=== PATIENT | female | born 1945 | race Caucasian/White ===

== ENCOUNTER 2017-10-11 10:46 | Observation (INO) ==
[2017-10-11 11:28] LABS: Nucleated Red Blood Cells 0.3 /100 WBC (0); Red Blood Count 4.99 M/mcL (3.82-4.97)
--- NOTE | 2017-10-11 11:28 | Emergency Department Note ---
Disposition Clinical Impression: Polycythemia rubra vera Dyspnea Qualifiers: Dyspnea type: unspecified Qualified Code(s): R06.00 - Dyspnea, unspecified Leukocytosis Qualifiers: Leukocytosis type: unspecified Qualified Code(s): D72.829 - Elevated white blood cell count, unspecified Disposition: Admitted As Inpatient Condition: Fair Referrals: Silver Díaz MD [Primary Care Provider] - Forms: ED Satisfaction Letter Time of Disposition: 14:23 SOB HPI - General Chief Complaint: ED Shortness of Breath/Dyspnea Stated Complaint: SADIE Time Seen by Provider: 10/11/17 11:06 Source: patient Mode of arrival: ambulatory Limitations: no limitations, age Nursing Notes Reviewed: Yes Vital Signs Reviewed: Yes - History of Present Illness 72-year-old who comes in complaining of shortness of breath for last 3 days also some chest tightness. Patient has had a previous heart attack had a cardiac catheter but no stents were placed. She also has a history of polycythemia and has had blood clots before. Patient states she does have exertional dyspnea gets really short of breath when she goes up the stairs. Pt Subjective Complaint: shortness of breath Onset (ago): day(s) (3) Context: occurred during exertion Severity: moderate Consistency/Duration: constant Improves with: nothing Worsens with: nothing Associated symptoms: Reports: chest pain, cough Treatment prior to arrival: none Cough present: No - Related Data Home Medications Medication Instructions Recorded Confirmed Atorvastatin [Lipitor] 40 mg PO HS 12/02/15 12/02/15 FLUoxetine HCl [Fluoxetine HCl] 10 mg PO DAILY 12/02/15 12/02/15 Gabapentin [Neurontin] 600 mg PO TID 12/02/15 12/02/15 Metoprolol XL (24 HR) Succ [Toprol 50 mg PO DAILY 12/02/15 12/02/15 Xl] Previous Rx's Medication Instructions Recorded Hydroxyurea [Hydrea] 500 mg PO AD #0 12/03/15 Hydrocodone/Acetaminophen [[place] 1 tab PO Q6H PRN #20 tab 01/13/16 5-325 Tablet] Capsaicin [Arthritis Pain Relief] 42.5 gm TP DAILY #1 cream..g. 03/04/17 Lidocaine Patch [Lidoderm 5% patch] 1 each TP DAILY #10 adh..patch 03/04/17 Orphenadrine [Norflex] 100 mg PO BID #20 tablet.er 03/04/17 Diclofenac Sodium [Voltaren] 50 mg PO Q8HR PRN #30 tablet. 03/05/17 predniSONE [PredniSONE] 40 mg PO DAILY #10 tablet 03/05/17 Famotidine [Pepcid] 20 mg PO BID #20 tablet 03/08/17 HYDROcodone/Acet 5/325 mg [[place] 1 tab PO Q4-6H PRN #6 tab 03/08/17 5-325 mg] predniSONE [PredniSONE] 60 mg PO DAILY #5 tablet 03/08/17 HYDROcodone/Acet 5/325 mg [[place] 1 tab PO Q6H PRN #20 tab 04/11/17 5-325 mg] diazePAM [Valium] 2 mg PO TID #9 tablet 04/11/17 Acetaminophen w/Cod 300-30 mg 1 each PO Q8HR PRN #10 tablet 04/13/17 [Tylenol w/Codeine #3] predniSONE [PredniSONE] 0 mg PO DAILY #11 tablet 04/13/17 Acetaminophen with Codeine 1 each PO Q4-6H PRN #6 tablet 05/21/17 [Acetaminophen-Cod #3 Tablet] predniSONE [PredniSONE] 40 mg PO DAILY #10 tablet 05/21/17 predniSONE [PredniSONE] 20 mg PO BID #10 tablet 06/14/17 hydrOXYzine pamoate [HydrOXYzine 25 mg PO TID PRN #30 capsule 10/04/17 Pamoate] methylPREDNISolone [Medrol] 4 mg PO TAPER #21 tablet 10/04/17 predniSONE [PredniSONE] 60 mg PO ONCE 5 Days #15 tablet 10/06/17 Allergies Allergy/AdvReac Type Severity Reaction Status Date / Time No Known Allergies Allergy Verified 07/12/17 15:12 Constitutional: Denies: fever, chills, weakness, weight change Eyes: Denies: eye pain, eye discharge, vision change ENT ED: Denies: ear pain, throat pain, dental pain, hearing loss, epistaxis, congestion, dysphagia Cardiovascular: Reports: chest pain, dyspnea on exertion. Denies: palpitations , edema, syncope Respiratory: Denies: cough, dyspnea, wheezes, hemoptysis, stridor Gastrointestinal: Denies: abdominal pain, nausea, vomiting, diarrhea, constipation, hematemesis, melena, hematochezia Genitourinary: Denies: dysuria, frequency, hematuria, discharge Musculoskeletal: Denies: back pain, neck pain, arthralgia, myalgia Integumentary: Denies: rash, abrasion, lesions Neurological: Denies: headache, weakness, numbness, paresthesias, confusion, abnormal gait, vertigo Psychiatric: Denies: anxiety, depression, suicidal thoughts, homicidal thoughts , auditory hallucinations, visual hallucinations Endocrine: Denies: fatigue Hematological/Lymphatic: Denies: easy bleeding, easy bruising Allergic/Immunologic: Denies: facial swelling, urticaria Past Medical History - Past Medical History Medical history: Reports: hypertension, other Psychiatric history: Reports: anxiety, depression MEDICAID BILLER history: Reports: no MEDICAID BILLER history - Social History Smoking Status: Never smoker Smokeless Tobacco Status: No Alcohol use: Reports: none Drug use: Reports: none Physical Exam - General Limitations: no limitations General appearance: alert, in no apparent distress - Head Head exam: atraumatic, normocephalic, normal inspection - Eye Eye exam: Present: normal appearance, PERRL, EOMI - ENT ENT exam: normal exam, normal oropharynx, mucous membranes moist - Neck Neck exam: Present: normal inspection, full ROM, trachea midline - Chest Chest inspection: Present: normal inspection, symmetric chest wall rise - Respiratory Respiratory exam: Present: normal lung sounds bilaterally - Cardiovascular Cardiovascular exam: Present: regular rate, normal rhythm, normal heart sounds - Abdominal Exam Abdominal exam: Present: soft, Non-Tender. Absent: tenderness, distention, guarding, rebound, rigidity - Extremities Exam Extremities exam: Present: normal inspection, full ROM. Absent: tenderness, pedal edema - Expanded Lower Extremity Exam Neurovascular/Tendon exam: Absent: motor deficit, sensory deficit, tendon deficit Gait: observed and normal - Back Exam Back exam: Present: normal inspection, full ROM. Absent: tenderness - Neurological Exam Neurological exam: Present: alert, oriented X3 - Psychiatric Psychiatric exam: Present: normal affect, normal mood - Skin Skin exam: Present: warm, dry, intact, normal color Course - Reevaluation(s) Reevaluation #1: 72-year-old female with a history of polycythemia who comes in complaining of exertional dyspnea for last several days. She does have an elevated BNP of 457 however chest x-rays negative. Her d-dimer was elevated she does have some renal insufficiency and she would rather not have contrast so we did a VQ scan which was low probability. Patient will be admitted for further evaluation exertional dyspnea may indicate an anginal equivalent. Time: 14:21 - Consultations Consultation #1: Discussed with Ms Bustos PAOLA, they will review the labs and peripheral smear and consult on patient. Time: 14:20 Consultation #2: Discussed with Dr. Fernandez, admit Time: 14:36 Vital Signs Temperature 97.5 F L 10/11/17 10:48 Pulse Rate 61 10/11/17 10:48 Respiratory Rate 16 10/11/17 10:48 Blood Pressure 151/81 10/11/17 10:48 O2 Sat by Pulse Oximetry 94 10/11/17 10:48 Temperature 97.5 F L 10/11/17 10:59 Pulse Rate 61 10/11/17 10:59 Respiratory Rate 16 10/11/17 10:59 Blood Pressure 151/81 10/11/17 10:59 O2 Sat by Pulse Oximetry 94 10/11/17 10:59 Oxygen Delivery Oxygen Delivery Room Air Shortness of Breath/Dyspnea - Lab Data Lab results reviewed: Yes I reviewed the patient's lab results. Result diagrams: 10/11/17 11:15 10/11/17 11:15 Lab Results 10/11/17 10/11/17 10/11/17 Range/Units 11:15 11:15 11:15 WBC 39.5 H* (4.3-11.1) K/mcL RBC 4.99 H (3.82-4.97) M/mcL Hgb 9.6 L (11.5-15.4) g/dL Hct 35.0 L (35.3-44.9) % MCV 70.1 L (83.0-100.0) fL MCH 19.2 L (28.0-33.3) pg MCHC 27.4 L (31.6-35.5) g/dL RDW 23.5 H (11.5-14.5) % Plt Count 476 H (140-400) K/mcL MPV TNP Immature Gran % Test Not Performed Seg Neutrophils % 88.0 % Lymphocytes % 6.0 % Monocytes % 4.0 % Eosinophils % 2.0 % Basophils % Test Not Performed Neutrophils # 34.8 H (1.6-8.9) K/mcL Lymphocytes # 2.4 (0.6-4.6) K/mcL Monocytes # 1.6 H (0.0-1.3) K/mcL Eosinophils # 0.8 H (0.0-0.6) K/mcL Basophils # Test Not Performed Nucleated RBCs/100 WBC 0.3 H (0) /100 WBC Platelet Estimate Normal (Normal) Large Platelets Present A (Not Present) Polychromasia 1+ A (Not Present) Hypochromasia Present A (Not Present) Anisocytosis 2+ A (Not Present) Smear Path Review See Below PT (9.4-12.1) Seconds INR APTT (26.0-36.0) Seconds D-Dimer (0-500) ng/mLFEU Sodium 139 (136-145) mEq/L Potassium 4.1 (3.5-5.1) mEq/L Chloride 106 (98-107) mEq/L Carbon Dioxide 22 L (23-29) mEq/L BUN 29 H (8-23) mg/dL Creatinine 1.20 (0.60-1.20) mg/dL Est GFR ( Amer) 54 L (> 60) Est GFR (Non-Af Amer) 44 L (> 60) BUN/Creatinine Ratio 24 (6-26) Glucose 92 (70-105) mg/dL Calculated Osmolality 293 (280-300) Lactic Acid 1.6 (0.5-2.2) mmol/L Calcium 9.6 (8.6-10.3) mg/dL Troponin I < 0.03 (< 0.04) ng/mL B-Natriuretic Peptide (Less than 100) pg/mL 10/11/17 10/11/17 Range/Units 11:15 11:15 WBC (4.3-11.1) K/mcL RBC (3.82-4.97) M/mcL Hgb (11.5-15.4) g/dL Hct (35.3-44.9) % MCV (83.0-100.0) fL MCH (28.0-33.3) pg MCHC (31.6-35.5) g/dL RDW (11.5-14.5) % Plt Count (140-400) K/mcL MPV Immature Gran % Seg Neutrophils % % Lymphocytes % % Monocytes % % Eosinophils % % Basophils % Neutrophils # (1.6-8.9) K/mcL Lymphocytes # (0.6-4.6) K/mcL Monocytes # (0.0-1.3) K/mcL Eosinophils # (0.0-0.6) K/mcL Basophils # Nucleated RBCs/100 WBC (0) /100 WBC Platelet Estimate (Normal) Large Platelets (Not Present) Polychromasia (Not Present) Hypochromasia (Not Present) Anisocytosis (Not Present) Smear Path Review PT 16.1 H (9.4-12.1) Seconds INR 1.5 APTT 32.4 (26.0-36.0) Seconds D-Dimer 1281 H (0-500) ng/mLFEU Sodium (136-145) mEq/L Potassium (3.5-5.1) mEq/L Chloride (98-107) mEq/L Carbon Dioxide (23-29) mEq/L BUN (8-23) mg/dL Creatinine (0.60-1.20) mg/dL Est GFR ( Amer) (> 60) Est GFR (Non-Af Amer) (> 60) BUN/Creatinine Ratio (6-26) Glucose (70-105) mg/dL Calculated Osmolality (280-300) Lactic Acid (0.5-2.2) mmol/L Calcium (8.6-10.3) mg/dL Troponin I (< 0.04) ng/mL B-Natriuretic Peptide 457 H (Less than 100) pg/mL - Radiology Data Radiology results reviewed: Yes I reviewed the patient's radiology results. Chest X-Ray 10/11/17 11:08 IMPRESSION: 1. No acute cardiopulmonary disease. D/ / Bennett Arrington MD / Bennett Arrington MD Interpreting Provider: Bennett Arrington MD Chest X-Ray 10/11/17 11:08 IMPRESSION: 1. No acute cardiopulmonary disease. D/ / Bennett Arrington MD / Bennett Arrington MD Interpreting Provider: Bennett Arrington MD Pulmonary Perfusion Imaging 10/11/17 12:50 IMPRESSION: Low probability for pulmonary embolus. D/ / Bill Stern MD / Bill Stern MD Interpreting Provider: Bill Stern MD - EKG Data EKG attestation: Yes I reviewed and interpreted this EKG. EKG shows normal: Reports: sinus rhythm Rate: Reports: normal Rhythm: Reports: NSR [place]/QRS: Reports: normal When compared to previous EKG there are: no significant changes (07/12/2017) Interpretation: Reports: no acute changes
[2017-10-11 11:30] LABS: Hemoglobin 9.6 g/dL (11.5-15.4); Mean Corpuscular HGB Conc 27.4 g/dL (31.6-35.5); Mean Corpuscular Hemoglobin 19.2 pg (28.0-33.3); Mean Corpuscular Volume 70.1 fL (83.0-100.0); Platelet Count 476 K/mcL (140-400); Red Cell Distribution Width 23.5 % (11.5-14.5)
[2017-10-11 11:57] LABS: Eosinophils # 0.8 K/mcL (0.0-0.6); Lymphocytes # 2.4 K/mcL (0.6-4.6); Monocytes # 1.6 K/mcL (0.0-1.3); Neutrophils # 34.8 K/mcL (1.6-8.9); Troponin I < 0.03 ng/mL (< 0.04)
[2017-10-11 12:00] LABS: Platelet Estimate Normal (Normal)
[2017-10-11 12:01] LABS: Anisocytosis 2+ (Not Present); Hypochromasia Present (Not Present); INR 1.5; Large Platelets Present (Not Present); Polychromasia 1+ (Not Present); Prothrombin Time 16.1 Seconds (9.4-12.1)
[2017-10-11 12:04] LABS: Activated Partial Thrombo Time 32.4 Seconds (26.0-36.0)
[2017-10-11 12:12] LABS: BUN/Creatinine Ratio 24 (6-26); Blood Urea Nitrogen 29 mg/dL (8-23); Calcium 9.6 mg/dL (8.6-10.3); Carbon Dioxide 22 mEq/L (23-29); Chloride 106 mEq/L (98-107); Glucose 92 mg/dL (70-105); Osmolality,Calculated 293 (280-300); Potassium 4.1 mEq/L (3.5-5.1); Sodium 139 mEq/L (136-145); eGFR For African Americans 54 (> 60); eGFR For Non-African Americans 44 (> 60)
[2017-10-11] MEDS ORDERED: 0.9 % Sodium Chloride 1,000 ML IVC ONE (12:54)
[2017-10-11] MEDS ORDERED: Naloxone 0.4 MG/ML INJ IVP PRN (14:58)
[2017-10-11] MEDS ORDERED: hydrOXYzine pamoate 25 MG CAPSULE PO PRN (15:01)
--- NOTE | 2017-10-11 15:07 | Internal Med History&Physical ---
Date of Encounter: 10/11/17 Time of Encounter: 15:15 Internal Medicine - H&P: HPI Chief complaint: SOB Admitted From: Home Plans for Post Hospital Care: Home History of present illness: Ms. Stoddard is a 72 year old female with history of polycythemia vera been having shortness of breath off and on within the last 10 days that has been getting worse in the last 3 days and patient came into the emergency department for further evaluation. When asked about phlebotomy patient states that she has it twice in the last one was years ago. She denies any history of congestive heart failure. She is not a smoker. Patient had blood clots before N VQ scan done in the emergency Department that showed low probability. Patient satting well on room air. Patient denied any chest pain but she stated that she is having worsening shortness of breath when going up stairs. She denies any headache no blurry vision no nausea no vomiting no abdominal pain or changes in bowel movement. Past Med Surg Social Fam HX - Past Medical History Medical history: hypertension, other Additional medical history: polycythemia vera Psychiatric history: anxiety, depression - Past Surgical History Additional surgical history: b/l foot surgery - Social History Smoking Status: Never smoker Smokeless Tobacco Status: No Alcohol use: none Drug use: none - Additional Family History Additional family history: History of coronary artery disease in the family Internal Medicine - H&P: Meds Atorvastatin [Lipitor] 40 mg PO HS 12/02/15 [History] FLUoxetine HCl [Fluoxetine HCl] 10 mg PO DAILY 12/02/15 [History] Gabapentin [Neurontin] 600 mg PO TID 12/02/15 [History] Metoprolol XL (24 HR) Succ [Toprol Xl] 50 mg PO DAILY 12/02/15 [History] Hydroxyurea [Hydrea] 500 mg PO AD #0 12/03/15 [Rx] Hydrocodone/Acetaminophen [[place] 5-325 Tablet] 1 tab PO Q6H PRN #20 tab [Rx] Capsaicin [Arthritis Pain Relief] 42.5 gm TP DAILY #1 cream..g. 03/04/17 [Rx] Lidocaine Patch [Lidoderm 5% patch] 1 each TP DAILY #10 adh..patch 03/04/17 [Rx] Orphenadrine [Norflex] 100 mg PO BID #20 tablet.er 03/04/17 [Rx] Diclofenac Sodium [Voltaren] 50 mg PO Q8HR PRN #30 tablet. 03/05/17 [Rx] predniSONE [PredniSONE] 40 mg PO DAILY #10 tablet 03/05/17 [Rx] Famotidine [Pepcid] 20 mg PO BID #20 tablet 03/08/17 [Rx] HYDROcodone/Acet 5/325 mg [[place] 5-325 mg] 1 tab PO Q4-6H PRN #6 tab 03/08/17 [ Rx] predniSONE [PredniSONE] 60 mg PO DAILY #5 tablet 03/08/17 [Rx] HYDROcodone/Acet 5/325 mg [[place] 5-325 mg] 1 tab PO Q6H PRN #20 tab 04/11/17 [Rx ] diazePAM [Valium] 2 mg PO TID #9 tablet 04/11/17 [Rx] Acetaminophen w/Cod 300-30 mg [Tylenol w/Codeine #3] 1 each PO Q8HR PRN #10 tablet 04/13/17 [Rx] predniSONE [PredniSONE] 0 mg PO DAILY #11 tablet 04/13/17 [Rx] Acetaminophen with Codeine [Acetaminophen-Cod #3 Tablet] 1 each PO Q4-6H PRN #6 tablet 05/21/17 [Rx] predniSONE [PredniSONE] 40 mg PO DAILY #10 tablet 05/21/17 [Rx] predniSONE [PredniSONE] 20 mg PO BID #10 tablet 06/14/17 [Rx] hydrOXYzine pamoate [HydrOXYzine Pamoate] 25 mg PO TID PRN #30 capsule 10/04/17 [Rx] methylPREDNISolone [Medrol] 4 mg PO TAPER #21 tablet 10/04/17 [Rx] predniSONE [PredniSONE] 60 mg PO ONCE 5 Days #15 tablet 10/06/17 [Rx] 3 Allergy/AdvReac Type Severity Reaction Status Date / Time No Known Allergies Allergy Verified 07/12/17 15:12 All Systems PM: A 10-system review of systems was performed and is negative for pertinent findings except as documented above in the HPI. Review of systems: Comprehensive 10 point review of system was done and it was negative other than what was mentioned above - Constitutional Vitals: Temp Pulse Resp BP Pulse Ox 97.5 F L 61 16 151/81 94 10/11/17 10:59 10/11/17 10:59 10/11/17 10:59 10/11/17 10:59 10/11/17 10:59 General appearance: Present: A&O X 3 - Head Head exam: Present: atraumatic, normocephalic - Eye Eye exam: Present: PERRL, conjuntiva pink, sclera anicteric Pupils: Present: PERRL - Neck Neck exam general surgery: Present: supple, trachea midline. Absent: lymphadenopathy - Respiratory Additional comments: Decreased breath sounds on the bases but no crackles - Cardiovascular Cardiovascular exam: Present: RRR, +S1, +S2. Absent: diastolic murmur, gallop, rubs, systolic murmur - GI/Abdominal GI/Abdominal exam: Present: normal bowel sounds, soft, no peritoneal signs. Absent: distended, tenderness - Extremities Exam Extremities exam: Present: warm, radial pulses palpable and symmetrical. Absent : calf tenderness, cyanotic, pedal edema - Neurological Exam Neurological exam: Present: CN II-XII intact, oriented X3, no focal deficits. Absent: pronater drift, facial droop, speech deficit - Skin Skin exam: Present: dry, intact Internal Med - H&P Results - Labs CBC & Chem 7: 10/11/17 11:15 10/11/17 11:15 Labs: Short CBC 10/11/17 Range/Units 11:15 WBC 39.5 H* (4.3-11.1) K/mcL Hgb 9.6 L (11.5-15.4) g/dL Hct 35.0 L (35.3-44.9) % Plt Count 476 H (140-400) K/mcL Neutrophils # 34.8 H (1.6-8.9) K/mcL BMP 10/11/17 11:15 Sodium 139 Potassium 4.1 Chloride 106 Carbon Dioxide 22 L BUN 29 H Creatinine 1.20 Glucose 92 Calcium 9.6 Cardiac Enzymes 10/11/17 Range/Units 11:15 Troponin I < 0.03 (< 0.04) ng/mL - Impressions ITS Impressions Chest X-Ray 10/11/17 11:08 IMPRESSION: 1. No acute cardiopulmonary disease. D/ / Bennett Arrington MD / Bennett Arrington MD Interpreting Provider: Bennett Arrington MD Pulmonary Perfusion Imaging 10/11/17 12:50 IMPRESSION: Low probability for pulmonary embolus. D/ / Bill Stern MD / Bill Stern MD Interpreting Provider: Bill Stern MD - Assessment and plan (1) Shortness of breath Current Visit: Yes Status: Acute Assessment and plan: Probably related to anemia, patient needs further hematology workup Patient has a history of polycythemia vera with her last phlebotomy was long time ago and her hemoglobin in the 9 range. She had leukocytosis and see needs further work up for rule out another blood malignancy Hematology consultation will check an echocardiogram for further evaluation of the heart structure and function Patient does not seem volume overloaded We will repeat chest x-ray in the morning Add the breathing treatment every 6 hours and when necessary VQ scan was done and showed low probability Patient may need walking desaturation study before discharge to reassess her oxygen level on ambulation (2) History of polycythemia vera Current Visit: Yes Status: Acute Assessment and plan: Hemoglobin and hematocrit is low Last phlebotomy was years ago Hematology consulted (3) Leukocytosis Current Visit: Yes Status: Acute Assessment and plan: With history of polycythemia vera patient needs further workup to rule out different but malignancy Hematology already on consult Qualifiers: Qualified Code(s): D72.829 - Elevated white blood cell count, unspecified (4) DVT prophylaxis Current Visit: Yes Status: Acute Assessment and plan: Lovenox subcutaneous as per protocol Monitor H&H - Time Spent With Patient Total time spent is greater than 50% in coordination of care (as documented) at patient's floor/unit and/or counseling patient:
[2017-10-11] MEDS ORDERED: Ipratropium/Albuterol Neb 3 ML IH PRN (15:15)
[2017-10-11] MEDS: Ipratropium/Albuterol Neb 3 ML IH SCH ×2 (16:08→21:54)
[2017-10-11] MEDS: Hydroxyurea 500 MG CAPSULE PO SCH (16:10)
--- NOTE | 2017-10-11 19:18 | Oncology Inp Consult Note ---
<Nivia Bustos Natalya - Last Filed: 10/12/17 09:33> Date of Encounter: 10/12/17 Time of Encounter: 18:30 Assessment and Plan (1) Anemia Status: Acute Assessment and plan: Chronic, noted in [facility] notes. Likely secondary to her hydrea, her hydrea was stopped earlier this year with an improvement in her anemia. She was recently started back on hydrea at a lower dose of 500 mg/day Check B12, folate, LDH, Iron, Ferritin Check stool for occult blood Start Iron tablets daily x10 days ONLY-while generally not indicated in PV, given the fact that she appears to be symptomatic from her ALINA this may help her symptoms Qualifiers: Qualified Code(s): D50.8 - Other iron deficiency anemias (2) DVT prophylaxis Status: Acute Assessment and plan: She is at high risk for thrombotic events Although anemia, do not highly suspect acute blood loss At this time her risk for blood clots given her PV outweighs holding her AC- restart her at low dose eliquis 2.5mg PO BID-of note, she states she has only been taking this daily, will need to clarify her dosing from [facility] and discuss further (3) Leukocytosis Status: Acute Assessment and plan: Secondary to PV although she is above baseline-etioogy for this somewhat unclear. Leukemoid reaction s/p recent GI illness, reactive to process causing SOB versus other Qualifiers: Qualified Code(s): D72.828 - Other elevated white blood cell count (4) Polycythemia vera Status: Acute Assessment and plan: Continue hydrea 500 mg/day and low dose aspirin VQ negative for PE Check BLE venous dopplers (5) Shortness of breath Status: Acute Assessment and plan: Etiology unclear at this time Suspect maybe secondary to underlying anemia VQ negative for PE She has an echo and CXR ordered for AM She is a non-smoker BNP 457-euvolemic on exam-calculated osm normal O2 saturations normal on room air Will consult pulmonology for other recommendations Please refer to Dr. Pederson's attestation below for additional details. - Data of Consult Patient: new to practice Consult date: 10/11/17 Requesting Physician: Corky Buck Primary Care Provider: Silver Díaz MD - Consult Narrative Reason for consult: PV History of present illness: Ms. Stoddard is a 72 year old female with past medical history significant for polycythemia vera (PV), HTN, anxiety and depression, presented to the ER on 10/11 for worsening SOB over the past 10 days. She is a non smoker. She denies H /A, visual changes, nausea, vomiting, abdominal pain, chest pain or calf pain. She has a history of PV for which she follows with Dr. Tidwell at [facility]. She has not needed a phlebotomy in over a year. She was previously on alternating 1000mg/500 mg a day dosing of hydrea however this was stopped earlier this year secondary to anemia. Her anemia improved and she was placed back on hydrea around 07/26/2017 at 500mg/day. According to lab review from [facility] notes on 07/26/2017 her ferritin was 17, hgb 9.7, platelt 537 and WBC 12 at this time. VQ scan shows low probability for PE. Of note, she has recently unexpectedly lost her son and is grieving secondary to this. Past Med Surg Social Fam HX - Past Medical History Medical history: hypertension, other Additional medical history: polycythemia vera Psychiatric history: anxiety, depression - Past Surgical History Surgical History: heart valve replacement, herniorrhaphy Additional surgical history: b/l foot surgery. "covered hole in heart" - Social History Smoking Status: Never smoker Smokeless Tobacco Status: No Alcohol use: none Drug use: none - Family History Sister Cause of : "blood clot" Medications and Allergies Amlodipine Besylate [Amlodipine Besylate] 10 mg PO DAILY 10/11/17 [History] Apixaban [Eliquis] 5 mg PO BID 10/11/17 [History] Aspirin [Lo-Dose Aspirin EC] 81 mg PO DAILY 10/11/17 [History] Atorvastatin [Lipitor] 40 mg PO HS 10/11/17 [History] Gabapentin [Neurontin] 300 mg PO QPM 10/11/17 [History] Gabapentin [Neurontin] 600 mg PO QAM 10/11/17 [History] Gabapentin [Neurontin] 900 mg PO HS 10/11/17 [History] Hydroxyurea 500 mg PO DAILY 10/11/17 [History] Lisinopril [Zestril] 40 mg PO DAILY 10/11/17 [History] Loratadine [Claritin] 10 mg PO DAILY 10/11/17 [History] Metoprolol Succinate [Toprol Xl] 50 mg PO DAILY 10/11/17 [History] Omeprazole [PriLOSEC] 20 mg PO HS 10/11/17 [History] Ranitidine HCl [Acid Channel Opener Outsoles] 150 mg PO BID 10/11/17 [History] Tizanidine HCl [Tizanidine HCl] 4 mg PO HS PRN 10/11/17 [History] hydrOXYzine pamoate [HydrOXYzine Pamoate] 25 mg PO TID 10/11/17 [History] predniSONE [PredniSONE] 20 mg PO AD 10/11/17 [History] 3 Allergy/AdvReac Type Severity Reaction Status Date / Time No Known Allergies Allergy Verified 10/11/17 15:17 Constitutional: Present: fatigue, weakness. Absent: anorexia, chills, fever(s) , night sweats, weight loss Eyes: Absent: change in vision Nose, mouth and throat: Absent: dysphagia Cardiovascular: Present: dyspnea on exertion. Absent: chest pain, palpitations Additional comments: reports lightheadedness with position change earlier this week following GI illness, now improved Respiratory: Present: dyspnea on exertion. Absent: cough, hemoptysis, chest congestion Gastrointestinal: Present: as per HPI Additional comments: GI illness earlier this week-symptoms now resolved Genitourinary: Absent: dysuria, hematuria Musculoskeletal: Present: muscle weakness Integumentary: Present: as per HPI. Absent: wounds Neurological: Present: as per HPI. Absent: focal weakness, frequent falls, memory loss Psychiatric: Present: as per HPI, anxiety, depression Endocrine: Present: fatigue. Absent: flushing, palpitations Hematologic/Lymphatic: Present: as per HPI Oncology - Exam - Constitutional Vitals: Temp Pulse Resp BP Pulse Ox 98.6 F 74 16 119/72 94 10/11/17 18:54 10/11/17 18:54 10/11/17 18:54 10/11/17 18:54 10/11/17 18:54 Oncology - Results Labs: 3 10/11/17 17:10 Troponin I < 0.03 Consult Discharge Plan - Plan Referrals: Silver Díaz MD [Primary Care Provider] - <Elisa Pederson - Last Filed: 10/12/17 16:57> Date of Encounter: 10/12/17 - Data of Consult Requesting Physician: Brain Arvizu Primary Care Provider: Silver Díaz MD - Consult Narrative History of present illness: Ms. Stoddrad is a 72 year old female Oncology - Exam - Constitutional Vitals: Temp Pulse Resp BP Pulse Ox 97.7 F 66 16 112/58 90 10/12/17 16:05 10/12/17 16:05 10/12/17 16:05 10/12/17 16:05 10/12/17 16:05 Exam: GENERAL: Alert and oriented, well appearing. Mental Status: Affect appropriate for circumstances HEENT: Sclerae anicteric. No mucositis or thrush. No other oral or pharyngeal lesions or erythema. Skin: No rashes or petechiae. No evidence of skin malignancy Lymph nodes: No cervical, supraclavicular, axillary, or inguinal adenopathy. Lungs: Air entry normal with normal breath sounds. No rhonchi or wheezing Cardiovascular: Regular rate and rhythm. No skipped beats Abdomen: Soft, nontender; no organomegaly or masses palpable. Extremities: No edema. No calf swelling or tenderness. No joint deformity. Neurologic: Alert, cranial nerves II-XII intact; normal gait; no focal weakness or sensory abnormalities Oncology - Results Labs: 3 10/12/17 10/12/17 10/12/17 00:26 00:26 00:26 WBC RBC Hgb Hct MCV MCH MCHC RDW Plt Count MPV Immature Gran % Seg Neutrophils % Lymphocytes % Monocytes % Eosinophils % Basophils % Neutrophils # Lymphocytes # Monocytes # Eosinophils # Basophils # Nucleated RBCs/100 WBC Platelet Estimate Polychromasia Hypochromasia Anisocytosis Microcytosis Sodium 139 Potassium 3.7 Chloride 107 Carbon Dioxide 23 BUN 22 Creatinine 1.00 Est GFR ( Amer) > 60 Est GFR (Non-Af Amer) 55 L BUN/Creatinine Ratio 22 Glucose 102 Calculated Osmolality 292 Calcium 8.9 Phosphorus 3.9 Magnesium 1.6 Iron 12 L % Saturation 3 L Transferrin 261 Ferritin 23 Total Bilirubin 0.7 AST 9 L ALT 11 Alkaline Phosphatase 142 H Lactate Dehydrogenase 322 H Troponin I Serum Total Protein 6.9 Albumin 3.3 L Globulin 3.6 H Albumin/Globulin Ratio 0.9 L Triglycerides 129 Cholesterol 112 LDL Cholesterol, Calc 57 VLDL Cholesterol, Calc 26 HDL Cholesterol 29 L Cholesterol/HDL Ratio 3.9 Vitamin B12 835 Folate 4.1 3 10/12/17 10/12/17 10/11/17 00:26 00:26 17:10 WBC 31.3 H* RBC 4.37 Hgb 8.7 L Hct 30.9 L MCV 70.7 L MCH 19.9 L MCHC 28.2 L RDW 22.5 H Plt Count 414 H MPV TNP Immature Gran % 5.9 H Seg Neutrophils % 82.3 Lymphocytes % 3.8 Monocytes % 3.3 Eosinophils % 4.6 Basophils % 0.1 Neutrophils # 25.8 H Lymphocytes # 1.2 Monocytes # 1.0 Eosinophils # 1.4 H Basophils # 0.0 Nucleated RBCs/100 WBC 0.3 H Platelet Estimate Increased H Polychromasia 1+ A Hypochromasia Present A Anisocytosis 3+ A Microcytosis Present A Sodium Potassium Chloride Carbon Dioxide BUN Creatinine Est GFR ( Amer) Est GFR (Non-Af Amer) BUN/Creatinine Ratio Glucose Calculated Osmolality Calcium Phosphorus Magnesium Iron % Saturation Transferrin Ferritin Total Bilirubin AST ALT Alkaline Phosphatase Lactate Dehydrogenase Troponin I < 0.03 < 0.03 Serum Total Protein Albumin Globulin Albumin/Globulin Ratio Triglycerides Cholesterol LDL Cholesterol, Calc VLDL Cholesterol, Calc HDL Cholesterol Cholesterol/HDL Ratio Vitamin B12 Folate - Attending Attestation 1. Polycythemia vera. Reviewed the notes from [facility] Dr. mcdonald and. Hydroxyurea dose reduced recently to 500 mg once a day because of anemia. Currently she has microcytic anemia hemoglobin 9.6 MCV 79. We will cautiously replace iron 325 mg daily for 10 days. B12 folate normal. Iron saturation low with ferritin 23. 2. Admitted with sense of breath. Low probability PE. Clinically no evidence of CHF. She denied chest pain. Etiology of shortness of breath not clear. She would benefit from pulmonology opinion D-dimer elevated at 1200. CT chest on 10/12/2017 without contrast showed mild pericardial effusion Echocardiogram on 10/11/2017 ejection fraction 60-65%. Mild mitral regurgitation. It did not mention any pericardial effusion 3. We will start her back on Elequis 2.5 mg by mouth twice a day. She was on 5 mg she claims takes once a day. I explained to her that twice a day dosing is preferred because of short half-life. 4. Eelevated neutrophil count around 36,000. It is coming down slowly. Elevated neutrophil count most likely secondary to polycythemia vera
[2017-10-11] MEDS ORDERED: tiZANidine 4 MG TABLET PO PRN (20:41)
[2017-10-11] MEDS: Apixaban 5 MG TABLET PO SCH (22:20)
[2017-10-11] MEDS: Famotidine 20 MG TABLET PO SCH (22:20)
[2017-10-11] MEDS: Gabapentin 300 MG CAPSULE PO SCH (22:20)
[2017-10-11] MEDS: diazePAM 2 MG TABLET PO SCH (22:20)
[2017-10-11] MEDS: Orphenadrine 100 MG TABLET.ER PO SCH (22:21)
[2017-10-12 01:07] LABS: Basophils % 0.1 %; Eosinophils # 1.4 K/mcL (0.0-0.6); Eosinophils % 4.6 %; Hematocrit 30.9 % (35.3-44.9); Hemoglobin 8.7 g/dL (11.5-15.4); Immature Granulocytes % 5.9 % (0-4); Lymphocytes # 1.2 K/mcL (0.6-4.6); Lymphocytes % 3.8 %; Mean Corpuscular HGB Conc 28.2 g/dL (31.6-35.5); Mean Corpuscular Hemoglobin 19.9 pg (28.0-33.3); Mean Corpuscular Volume 70.7 fL (83.0-100.0); Monocytes % 3.3 %; Neutrophils # 25.8 K/mcL (1.6-8.9); Nucleated Red Blood Cells 0.3 /100 WBC (0); Platelet Count 414 K/mcL (140-400); Red Blood Count 4.37 M/mcL (3.82-4.97); Red Cell Distribution Width 22.5 % (11.5-14.5); Segmented Neutrophils % 82.3 %
[2017-10-12 01:18] LABS: % Iron Saturation 3 % (15-50); Alanine Aminotransferase 11 Units/L (7-52); Albumin 3.3 g/dL (3.5-5.7); Albumin/Globulin Ratio 0.9 (1.1-2.2); Alkaline Phosphatase 142 Units/L (34-104); Aspartate Amino Transferase 9 Units/L (13-39); BUN/Creatinine Ratio 22 (6-26); Bilirubin,Total 0.7 mg/dL (0.3-1.0); Blood Urea Nitrogen 22 mg/dL (8-23); Calcium 8.9 mg/dL (8.6-10.3); Carbon Dioxide 23 mEq/L (23-29); Chloride 107 mEq/L (98-107); Chol/HDL Ratio 3.9 (0-4.9); Cholesterol 112 mg/dL (< 200); Globulin 3.6 g/dL (2.4-3.5); Glucose 102 mg/dL (70-105); HDL Cholesterol 29 mg/dL (40-59); Iron 12 mcg/dL (50-170); LDL Cholesterol,Calculated 57 mg/dL (0-99); Lactate Dehydrogenase 322 Units/L (140-271); Magnesium 1.6 mg/dL (1.6-2.6); Osmolality,Calculated 292 (280-300); Phosphorous 3.9 mg/dL (2.7-4.5); Potassium 3.7 mEq/L (3.5-5.1); Sodium 139 mEq/L (136-145); Total Protein 6.9 g/dL (6.4-8.9); Transferrin 261 mg/dL (203-362); Triglycerides 129 mg/dL (< 150); eGFR For African Americans > 60 (> 60); eGFR For Non-African Americans 55 (> 60)
[2017-10-12 01:33] LABS: Anisocytosis 3+ (Not Present); Hypochromasia Present (Not Present); Platelet Estimate Increased (Normal)
[2017-10-12 01:34] LABS: Microcytosis Present (Not Present); Polychromasia 1+ (Not Present)
[2017-10-12 01:37] LABS: Ferritin 23 ng/mL (10-120)
[2017-10-12 01:39] LABS: Folate 4.1 ng/mL (3.0-16.0)
[2017-10-12] MEDS: Ipratropium/Albuterol Neb 3 ML IH SCH ×4 (03:38→21:51)
[2017-10-12] MEDS ORDERED: FLUoxetine HCl 10 MG CAPSULE PO SCH (09:00)
[2017-10-12] MEDS ORDERED: Capsaicin 0.025% 60 GM TUBE TP SCH (09:00)
--- NOTE | 2017-10-12 09:08 | Electrocardiograph Report ---
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
[2017-10-12] MEDS: Hydroxyurea 500 MG CAPSULE PO SCH (09:32)
[2017-10-12] MEDS: Famotidine 20 MG TABLET PO SCH ×2 (09:33→20:51)
[2017-10-12] MEDS: diazePAM 2 MG TABLET PO SCH (09:33)
[2017-10-12] MEDS: Metoprolol XL (24 HR) Succ 50 MG TAB.ER.24H PO SCH (09:34)
[2017-10-12] MEDS: Apixaban 5 MG TABLET PO SCH ×2 (09:34→20:51)
[2017-10-12] MEDS: Gabapentin 300 MG CAPSULE PO SCH ×3 (09:34→20:52)
[2017-10-12] MEDS: Orphenadrine 100 MG TABLET.ER PO SCH (09:34)
--- NOTE | 2017-10-12 11:04 | Internal Med Progress Note ---
Date of Encounter: 10/12/17 Time of Encounter: 11:01 - Assessment and plan (1) Shortness of breath Status: Resolved (2) Anemia Status: Acute Qualifiers: Anemia type: iron deficiency Iron deficiency anemia type: unspecified iron deficiency Qualified Code(s): D50.9 - Iron deficiency anemia, unspecified (3) Polycythemia vera Status: Chronic (4) Acute hypokalemia Status: Acute (5) Hypomagnesemia Status: Resolved - Time Spent With Patient Total time spent is greater than 50% in coordination of care (as documented) at patient's floor/unit and/or counseling patient: 25 - 35 minutes - Subjective Interval history: .. The patient feels better. Her difficulty breathing subsided. She is on room air oxygen. She feels weak; he is able to ambulate on her own. Denies chest pain. Denies abdominal pain, nausea and vomiting. She makes good amounts of urine. OBJECTIVE: .. Constitutional: See below. Skin: Free of rash and discoloration ENMT: Oral/pharyngeal mucosa is normal in appearance. Eyes: Sclera is white. There is no discharge from eyes. Respiratory: Normal breath sounds; no crackles or wheezes. CV: Heart is regular; no gallop or murmur. GI: Abdomen is soft and not tender. There is no palpable mass or visceromegaly. Neuro: There is no focal deficits. ASSESSMENT AND PLAN: .. Shortness of breath/anemia. There is no indications for a blood transfusion today. Her anemia could be resulting from taking hydroxyurea (for treatment of polycythemia vera). She could also developed GI bleeding. She may need upper/ lower endoscopy. She may need po/iv Iron. See notes from hematology/oncology. Polycythemia vera. See hematology/oncology consult from yesterday. Acute hypokalemia. Will give her supplemental potassium chloride by mouth. Hypomagnesemia. Will give her IV magnesium sulfate. NOTES: Awaiting pulmonary diseases consult. - Constitutional Vitals: Temp Pulse Resp BP Pulse Ox 98.1 F 60 14 131/80 96 10/12/17 06:49 10/12/17 06:49 10/12/17 06:49 10/12/17 06:49 10/12/17 07:42 General appearance: Present: A&O X 3 Internal Medicine: Result - Labs CBC & Chem 7: 06/24/18 03:34 10/14/17 03:34 Labs: Short CBC 10/12/17 Range/Units 00:26 WBC 31.3 H* (4.3-11.1) K/mcL Hgb 8.7 L (11.5-15.4) g/dL Hct 30.9 L (35.3-44.9) % Plt Count 414 H (140-400) K/mcL Neutrophils # 25.8 H (1.6-8.9) K/mcL BMP 10/12/17 00:26 Sodium 139 Potassium 3.7 Chloride 107 Carbon Dioxide 23 BUN 22 Creatinine 1.00 Glucose 102 Calcium 8.9 Cardiac Enzymes 10/11/17 10/12/17 Range/Units 17:10 00:26 Troponin I < 0.03 < 0.03 (< 0.04) ng/mL Liver Function 10/12/17 Range/Units 00:26 Total Bilirubin 0.7 (0.3-1.0) mg/dL AST 9 L (13-39) Units/L ALT 11 (7-52) Units/L Alkaline Phosphatase 142 H (34-104) Units/L Albumin 3.3 L (3.5-5.7) g/dL - ABG Interpretation ABG results: PT/INR, D-dimer PT 16.1 Seconds (9.4-12.1) H 10/11/17 11:15 D-Dimer 1281 ng/mLFEU (0-500) H 10/11/17 11:15 - Impressions Impressions Chest X-Ray 10/12/17 00:01 IMPRESSION: Bibasilar atelectasis. D/ / 10/12/2017 09:42:42 Bryan Cortes MD / [facility] Interpreting Provider: Bryan Cortes MD - VTE Reasons for not Prescribing Prophylaxis: Not indicated-Anticoagulated or INR therapeutic Consult Discharge Plan - Plan Referrals: Silver Díaz MD [Primary Care Provider] -
[2017-10-12] MEDS ORDERED: Preparation H Ointment 30 GM TUBE TP PRN (11:05)
--- NOTE | 2017-10-12 11:39 | Pulmonology Consult Note ---
Date of Encounter: 10/12/17 Time of Encounter: 11:00 Assessment and Plan (1) Shortness of breath Current Visit: Yes Status: Resolved This is very pleasant 72-year-old female who is complaining of shortness of breath, however she feels better at this time and it is unlikely secondary to structural lung disease since her CAT scan of the chest is normal. Other possibilities could be from underlying primary disease having polycythemia vera and anemia also could be contributing recent. I have explained to patient if continued to have shortness of breath she will need a pulmonary function test as outpatient for further workup. Other reasons could be diastolic dysfunction that was noted on the echocardiogram. She does not have significant improvement with bronchodilators, I would recommend to stop them. I have ordered CT chest high resolution since some of the side effects of medication such as Hydrea his pulmonary fibrosis and subsequently there were no evidence of structural pulmonary disease on the CT chest. Thank you for the consultation and we will be more than happy to see patient as outpatient if continue to have problem. (2) Pulmonary hyperinflation Current Visit: Yes Status: Suspected Mild pulmonary hypertension was noted on the echocardiogram, however patient has low probability perfusion scan and mild diastolic dysfunction could be a reason for mild hypertension, and she denies any symptoms of suggesting pulmonary or sleep disorder breathing. If she continued to have dyspnea, she will need right heart catheterization and that can be done later on, if she continued to have symptoms. (3) Polycythemia vera Current Visit: Yes Status: Chronic History of Present Illness Consult date: 10/12/17 Requesting physician: Nivia Bustos Reason for consult: dyspnea Chief complaint: Shortness of breath History of present illness: This is a very pleasant 72-year-old female with history of polycythemia vera and she stated she is been having more shortness of breath for the last 10 days and she is feeling better now and she thinks it is her underlying disease. She denies any significant productive cough or wheezing and she does not feel any significant improvement with bronchodilators. Patient is being treated for polycythemia vera and she had an echocardiogram which showed some evidence of mild pulmonary hypertension, however her symptoms are negative for sleep disorder breathing and she has no history of smoking. He also had CT chest with no evidence of acute abnormalities. Her perfusion scan was low probability. Patient denies any chest pain and she has no history of any significant pulmonary diseases or exposures to chemicals. Past Med Surg Social Fam HX - Past Medical History Medical history: hypertension, other Additional medical history: polycythemia vera Psychiatric history: anxiety, depression - Past Surgical History Surgical History: heart valve replacement, herniorrhaphy Additional surgical history: b/l foot surgery. "covered hole in heart" - Social History Smoking Status: Never smoker Smokeless Tobacco Status: No Alcohol use: none Drug use: none - Family History Sister Cause of : "blood clot" Medications and Allergies Amlodipine Besylate [Amlodipine Besylate] 10 mg PO DAILY 10/11/17 [History] Apixaban [Eliquis] 5 mg PO BID 10/11/17 [History] Aspirin [Lo-Dose Aspirin EC] 81 mg PO DAILY 10/11/17 [History] Atorvastatin [Lipitor] 40 mg PO HS 10/11/17 [History] Gabapentin [Neurontin] 300 mg PO QPM 10/11/17 [History] Gabapentin [Neurontin] 600 mg PO QAM 10/11/17 [History] Gabapentin [Neurontin] 900 mg PO HS 10/11/17 [History] Hydroxyurea 500 mg PO DAILY 10/11/17 [History] Lisinopril [Zestril] 40 mg PO DAILY 10/11/17 [History] Loratadine [Claritin] 10 mg PO DAILY 10/11/17 [History] Metoprolol Succinate [Toprol Xl] 50 mg PO DAILY 10/11/17 [History] Omeprazole [PriLOSEC] 20 mg PO HS 10/11/17 [History] Ranitidine HCl [Acid Swaging Machine Operator] 150 mg PO BID 10/11/17 [History] Tizanidine HCl [Tizanidine HCl] 4 mg PO HS PRN 10/11/17 [History] hydrOXYzine pamoate [HydrOXYzine Pamoate] 25 mg PO TID 10/11/17 [History] predniSONE [PredniSONE] 20 mg PO AD 10/11/17 [History] 3 Allergy/AdvReac Type Severity Reaction Status Date / Time No Known Allergies Allergy Verified 10/11/17 15:17 All Systems: The remainder of the systems were reviewed and are negative Physical Examination Vital Signs: Vital Signs, Last 4 Hours Temp Pulse Resp BP Pulse Ox 10/12/17 11:19 14 95 10/12/17 11:14 98.6 F 57 14 132/77 95 06/22/18 07:42 96 General: Patient is in no acute distress. HEENT: Normocephalic atraumatic, pupils are equal round and reactive to light and accommodation, anicteric sclera, nares is patent, mucous membranes moist, no JVD, trachea is midline Cardiovascular: Normal sinus rhythm, S1 and S2 audible, no murmur or rubs Respiratory: Clear to auscultation bilaterally. No acute distress. No wheezing. Patient not using accessory muscles. Abdomen: Soft, nontender, nondistended, positive bowel sounds in all 4 quadrants Extremities: Warm, dry, trace lower extremity edema. Normal capillary refill. Neuro: Alert and oriented and follows commands. Grossly no neuro deficits. Skin: Warm to touch : No obvious abnormalities. Psych: Normal Results - Laboratory Findings CBC and BMP: 10/12/17 00:26 10/12/17 00:26 PT/INR, D-dimer PT 16.1 Seconds (9.4-12.1) H 10/11/17 11:15 D-Dimer 1281 ng/mLFEU (0-500) H 10/11/17 11:15 Abnormal lab findings: Abnormal lab results WBC 31.3 K/mcL (4.3-11.1) H* 10/12/17 00:26 Hgb 8.7 g/dL (11.5-15.4) L 10/12/17 00:26 Hct 30.9 % (35.3-44.9) L 10/12/17 00:26 MCV 70.7 fL (83.0-100.0) L 10/12/17 00:26 MCH 19.9 pg (28.0-33.3) L 10/12/17 00:26 MCHC 28.2 g/dL (31.6-35.5) L 10/12/17 00:26 RDW 22.5 % (11.5-14.5) H 10/12/17 00:26 Plt Count 414 K/mcL (140-400) H 10/12/17 00:26 Immature Gran % 5.9 % (0-4) H 10/12/17 00:26 Neutrophils # 25.8 K/mcL (1.6-8.9) H 10/12/17 00:26 Eosinophils # 1.4 K/mcL (0.0-0.6) H 10/12/17 00:26 Nucleated RBCs/100 WBC 0.3 /100 WBC (0) H 10/12/17 00:26 Platelet Estimate Increased (Normal) H 10/12/17 00:26 Large Platelets Present (Not Present) A 10/11/17 11:15 Polychromasia 1+ (Not Present) A 10/12/17 00:26 Hypochromasia Present (Not Present) A 10/12/17 00:26 Anisocytosis 3+ (Not Present) A 10/12/17 00:26 Microcytosis Present (Not Present) A 10/12/17 00:26 PT 16.1 Seconds (9.4-12.1) H 10/11/17 11:15 D-Dimer 1281 ng/mLFEU (0-500) H 10/11/17 11:15 Est GFR (Non-Af Amer) 55 (> 60) L 10/12/17 00:26 Iron 12 mcg/dL (50-170) L 10/12/17 00:26 % Saturation 3 % (15-50) L 10/12/17 00:26 AST 9 Units/L (13-39) L 10/12/17 00:26 Alkaline Phosphatase 142 Units/L (34-104) H 10/12/17 00:26 Lactate Dehydrogenase 322 Units/L (140-271) H 10/12/17 00:26 B-Natriuretic Peptide 457 pg/mL (Less than 100) H 10/11/17 11:15 Albumin 3.3 g/dL (3.5-5.7) L 10/12/17 00:26 Globulin 3.6 g/dL (2.4-3.5) H 10/12/17 00:26 Albumin/Globulin Ratio 0.9 (1.1-2.2) L 10/12/17 00:26 HDL Cholesterol 29 mg/dL (40-59) L 10/12/17 00:26 - Diagnostic Findings CT scan - chest: report reviewed, image reviewed - Clinical Findings Intake & Output: Intake & Output 10/11/17 10/12/17 10/12/17 23:59 07:59 15:59 Intake Total 0 / 0 0 / 0 Output Total 150 / 150 0 / 0 Balance -150 / -150 0 / 0 Weight 78.4 kg 73.573 kg 73.573 kg Consult Discharge Plan - Plan Referrals: Silver Díaz MD [Primary Care Provider] -
[2017-10-12] MEDS: predniSONE 20 MG TABLET PO SCH (15:41)
[2017-10-12] MEDS: Acetaminophen 325 MG TABLET PO PRN (16:09)
--- NOTE | 2017-10-12 18:49 | Oncology Inp Progress Note ---
<Nivia Bustos - Last Filed: 10/12/17 18:47> Date of Encounter: 10/12/17 Time of Encounter: 17:45 (1) Anemia Current Visit: Yes Status: Acute Assessment and plan: Chronic, noted in [facility] notes. Likely in part secondary to her hydrea, her hydrea was stopped earlier this year with an improvement in her anemia. She was recently started back on hydrea at a lower dose of 500 mg/day Check stool for occult blood, need to rule out GI loss-pending Consider GI consultation which may be done on outpatient basis if she has no s/ s active bleeding In addition to this she is also very iron deficient, ALINA common in PV patients and typically expected, however, given her degrees of deficiency and presentation with SOB, will plan to treat. Dr. Bunch has discussed with patients treating oncologist Dr. Tidwell at [facility], following their discussion the ultimate recommendation was to treat with venofer 100 mg IV x1. Will stop oral iron. Expect her symptoms to improve soon following this. Qualifiers: Anemia type: iron deficiency Iron deficiency anemia type: unspecified iron deficiency Qualified Code(s): D50.9 - Iron deficiency anemia, unspecified (2) DVT prophylaxis Current Visit: Yes Status: Acute Assessment and plan: She is at high risk for thrombotic events Although she is anemic, do not highly suspect acute blood loss At this time her risk for blood clots given her PV outweighs holding her AC- restart her at low dose eliquis 2.5mg PO BID-of note, she states she has only been taking this daily, will need to clarify her dosing from [facility] and discuss further (3) Leukocytosis Current Visit: No Status: Acute Assessment and plan: Improving since admission Secondary to PV although she is above baseline-etiology for this somewhat unclear. Leukemoid reaction s/p recent GI illness, reactive to process causing SOB versus other Qualifiers: Qualified Code(s): D72.828 - Other elevated white blood cell count (4) Polycythemia vera Current Visit: Yes Status: Chronic Assessment and plan: Continue hydrea 500 mg/day and low dose aspirin VQ negative for PE BLE venous dopplers-negative for DVT She will continue to follow Dr. Tidwell at [facility] on an outpatient basis, she has an upcoming appointment with him in early October (5) Shortness of breath Current Visit: Yes Status: Resolved Assessment and plan: Suspect this is likely secondary to underlying anemia VQ negative for PE She is a non-smoker O2 saturations normal on room air CXR-no acute process Echo with mild pulmonary hypertension and mild diastolic dysfunction- may need right heart cath in future should she continue to have issues with unresolved or worsening SOB Pulmonology was consulted and appreciate the recommendations which were reviewed. She may plan to follow up with pulmonology on an outpatient basis if her symptoms do not resolve. Please refer to Dr. Bunch's attestation below for additional details. Oncology: Subj Interval history: Ms. Stoddard is resting in bed. She denies chest pain, calf pain, H/A or visual changes. She continues to report SOB but this has slightly improved since admission. - Constitutional Vitals: Vital Signs Temp Pulse Resp BP Pulse Ox 10/12/17 16:05 97.7 F 66 16 112/58 90 10/12/17 15:40 14 95 10/12/17 11:19 14 95 10/12/17 11:14 98.6 F 57 14 132/77 95 10/12/17 07:42 96 10/12/17 06:49 98.1 F 60 14 131/80 93 10/12/17 04:07 98.6 F 60 16 107/64 94 10/11/17 23:28 98.5 F 66 16 115/65 94 10/11/17 21:55 18 97 10/11/17 18:54 98.6 F 74 16 119/72 94 Intake and Output 10/12/17 10/12/17 10/12/17 07:59 15:59 23:59 Intake Total 0 / 0 240 / 240 240 / 240 Output Total 0 / 0 Balance 0 / 0 240 / 240 240 / 240 Intake: Oral 0 / 0 240 / 240 240 / 240 Output: Urine 0 / 0 Other: Meal Lunch Dinner Percent of Meal Consumed 100% 75% Weight 73.573 kg 73.573 kg Patient Weight 10/12/17 23:59 Weight 73.573 kg General appearance: cooperative, no acute distress, no febrile - Head Head exam: Present: atraumatic - ENT ENT exam: Present: mucous membranes moist - Respiratory Respiratory exam: Present: CTAB. Absent: respiratory distress - Cardiovascular Cardiovascular exam: Present: RRR, +S1, +S2 - GI/Abdominal GI/Abdominal exam: Present: normal bowel sounds, soft. Absent: guarding, rebound, tenderness - Extremities Exam Extremities exam: Present: normal inspection. Absent: calf tenderness - Neurological Exam Neurological exam: Present: alert, oriented X3, no focal deficits, strengths equal and symetr throughout - Psychiatric Psychiatric exam: Present: normal affect, normal mood - Skin Skin exam: Present: dry, intact, pallor, warm Oncology: Obj Data - Labs CBC & Chem 7: 10/12/17 00:26 10/12/17 00:26 - Impressions Impressions Chest X-Ray 10/12/17 00:01 IMPRESSION: Bibasilar atelectasis. D/ / 10/12/2017 09:42:42 [facility] Inter[facility]ting Provider: Bryan Cortes MD Chest CT 10/12/17 11:00 IMPRESSION: 1. No acute pulmonary abnormality to account for patient's shortness of breath. Please note that in the absence of intravenous contrast, sensitivity of the exam for thromboembolic disease is low. 2. Coronary artery disease. 3. Small pericardial effusion, increased compared to the exam of July 12, 2017. Pericardial fluid measures up to 7 mm in thickness. 4. Although not well seen on the CT of the chest, the spleen appears enlarged. If patient has corresponding clinical symptoms, consider ultrasound to assess splenic size. D/ / 10/12/2017 13:11:34 [facility] Inter[facility] Provider: Eric Delaney MD - ABG Interpretation ABG results: PT/INR, D-dimer PT 16.1 Seconds (9.4-12.1) H 10/11/17 11:15 D-Dimer 1281 ng/mLFEU (0-500) H 10/11/17 11:15 Consult Discharge Plan - Plan Referrals: Silver Díaz MD [Primary Care Provider] - <Ehsan Bunch - Last Filed: 10/12/17 20:19> Date of Encounter: 10/12/17 - Constitutional Vitals: Vital Signs Temp Pulse Resp BP Pulse Ox 10/12/17 16:05 97.7 F 66 16 112/58 90 10/12/17 15:40 14 95 10/12/17 11:19 14 95 10/12/17 11:14 98.6 F 57 14 132/77 95 10/12/17 07:42 96 10/12/17 06:49 98.1 F 60 14 131/80 93 10/12/17 04:07 98.6 F 60 16 107/64 94 10/11/17 23:28 98.5 F 66 16 115/65 94 10/11/17 21:55 18 97 Intake and Output 10/12/17 10/12/17 10/13/17 08:59 16:59 00:59 Intake Total 0 / 0 240 / 240 240 / 240 Output Total 0 / 0 Balance 0 / 0 240 / 240 240 / 240 Intake: Oral 0 / 0 240 / 240 240 / 240 Output: Urine 0 / 0 Other: Meal Lunch Dinner Percent of Meal Consumed 100% 75% Weight 73.573 kg 73.573 kg Patient Weight 10/13/17 00:59 Weight 73.573 kg Oncology: Obj Data - Labs CBC & Chem 7: 10/12/17 00:26 10/12/17 00:26 Labs: Laboratory Results - last 24 hr 10/12/17 10/12/17 10/12/17 00:26 00:26 00:26 WBC 31.3 H* RBC 4.37 Hgb 8.7 L Hct 30.9 L MCV 70.7 L MCH 19.9 L MCHC 28.2 L RDW 22.5 H Plt Count 414 H MPV TNP Immature Gran % 5.9 H Seg Neutrophils % 82.3 Lymphocytes % 3.8 Monocytes % 3.3 Eosinophils % 4.6 Basophils % 0.1 Neutrophils # 25.8 H Lymphocytes # 1.2 Monocytes # 1.0 Eosinophils # 1.4 H Basophils # 0.0 Nucleated RBCs/100 WBC 0.3 H Platelet Estimate Increased H Polychromasia 1+ A Hypochromasia Present A Anisocytosis 3+ A Microcytosis Present A Sodium 139 Potassium 3.7 Chloride 107 Carbon Dioxide 23 BUN 22 Creatinine 1.00 Est GFR ( Amer) > 60 Est GFR (Non-Af Amer) 55 L BUN/Creatinine Ratio 22 Glucose 102 Calculated Osmolality 292 Calcium 8.9 Phosphorus 3.9 Magnesium 1.6 Iron % Saturation Transferrin Ferritin Total Bilirubin 0.7 AST 9 L ALT 11 Alkaline Phosphatase 142 H Lactate Dehydrogenase Troponin I < 0.03 Serum Total Protein 6.9 Albumin 3.3 L Globulin 3.6 H Albumin/Globulin Ratio 0.9 L Triglycerides 129 Cholesterol 112 LDL Cholesterol, Calc 57 VLDL Cholesterol, Calc 26 HDL Cholesterol 29 L Cholesterol/HDL Ratio 3.9 Vitamin B12 Folate 10/12/17 10/12/17 00:26 00:26 WBC RBC Hgb Hct MCV MCH MCHC RDW Plt Count MPV Immature Gran % Seg Neutrophils % Lymphocytes % Monocytes % Eosinophils % Basophils % Neutrophils # Lymphocytes # Monocytes # Eosinophils # Basophils # Nucleated RBCs/100 WBC Platelet Estimate Polychromasia Hypochromasia Anisocytosis Microcytosis Sodium Potassium Chloride Carbon Dioxide BUN Creatinine Est GFR ( Amer) Est GFR (Non-Af Amer) BUN/Creatinine Ratio Glucose Calculated Osmolality Calcium Phosphorus Magnesium Iron 12 L % Saturation 3 L Transferrin 261 Ferritin 23 Total Bilirubin AST ALT Alkaline Phosphatase Lactate Dehydrogenase 322 H Troponin I Serum Total Protein Albumin Globulin Albumin/Globulin Ratio Triglycerides Cholesterol LDL Cholesterol, Calc VLDL Cholesterol, Calc HDL Cholesterol Cholesterol/HDL Ratio Vitamin B12 835 Folate 4.1 - Impressions Impressions Chest X-Ray 10/12/17 00:01 IMPRESSION: Bibasilar atelectasis. D/ / 10/12/2017 09:42:42 Bryan Cortes MD / [facility] Interpreting Provider: Bryan Cortes MD Chest CT 10/12/17 11:00 IMPRESSION: 1. No acute pulmonary abnormality to account for patient's shortness of breath. Please note that in the absence of intravenous contrast, sensitivity of the exam for thromboembolic disease is low. 2. Coronary artery disease. 3. Small pericardial effusion, increased compared to the exam of July 12, 2017. Pericardial fluid measures up to 7 mm in thickness. 4. Although not well seen on the CT of the chest, the spleen appears enlarged. If patient has corresponding clinical symptoms, consider ultrasound to assess splenic size. D/ / 10/12/2017 13:11:34 Eric Delaney MD / [facility] Interpreting Provider: Eric Delaney MD - ABG Interpretation ABG results: PT/INR, D-dimer PT 16.1 Seconds (9.4-12.1) H 10/11/17 11:15 D-Dimer 1281 ng/mLFEU (0-500) H 10/11/17 11:15 - Attending Attestation I examined this patient and my medical decision-making was reviewed with the Advanced Practice Nurse. I agree with the documented findings, disposition and treatment plan as described except to the extent set forth below. Ms. Stoddard has acute on chronic anemia secondary to iron deficiency. We will administer venofer 100mg IV x 1 which should help her symptoms. Do not want to overtreat iron deficiency as this is the goal of her therapy with PV. Likely having occult GI bleeding; she denies bleeding symptoms. Agree with stool hemoccult. She will f/u with Dr. Tidwell in 2 weeks as scheduled. We will otherwise sign off. Please call [phone] with questions
[2017-10-12] MEDS ORDERED: Ondansetron 4 MG/2 ML VIAL IVP PRN (23:40)
[2017-10-12] MEDS ORDERED: traMADol 50 MG TABLET PO PRN (23:51)
--- NOTE | 2017-10-12 23:56 | Event Note ---
Date of Encounter: 10/12/17 Time of Encounter: 23:26 Alerted by patient's nurse SILVA Godoy the patient was complaining of pain in her lower rib cage on the left side radiating at 7/10. Patient stated pain began when she was in CT lying on her abdomen. Went to see patient who was resting in bed but complaining of pain in the left upper quadrant located under her rib cage. Area was slightly edematous and patient stated pain continued under her rib cage as well. Patient has history of polycythemia vera and anemia with hemoglobin of 9.6 yesterday and 8.[address] of the chest showed spleen that appeared enlarged with recommendation if corresponding clinical symptoms persist consider ultrasound to assess splenic size. Ultrasound of patient's LUQ ordered to focus on spleen. Timed H&H ordered with communication order to use pediatric tubing. Due to patient's renal dysfunction (GFR 44 yesterday with improvement to 55 today), Ultram 50 mg by mouth every 8 hour when necessary for moderate pain ordered. Hydrocodone by mouth held. Patient to be monitored closely overnight. Patient discussed with Dr. Taveras who agrees with current plan and will follow overnight if needed.
[2017-10-13 01:05] LABS: Hemoglobin 8.6 g/dL (11.5-15.4)
[2017-10-13] MEDS: Acetaminophen 325 MG TABLET PO PRN (02:41)
[2017-10-13] MEDS: Ipratropium/Albuterol Neb 3 ML IH SCH ×4 (03:55→22:53)
[2017-10-13] MEDS: *HR* HYDROcodone/Acet 5/325 mg TABLET PO PRN ×3 (04:17→23:16)
--- NOTE | 2017-10-13 06:24 | Internal Med Progress Note ---
Date of Encounter: 10/12/17 Time of Encounter: 19:00 - Assessment and plan (1) Anemia Current Visit: Yes Status: Acute Qualifiers: Anemia type: iron deficiency Iron deficiency anemia type: unspecified iron deficiency Qualified Code(s): D50.9 - Iron deficiency anemia, unspecified (2) Leukocytosis Current Visit: No Status: Acute Qualifiers: Qualified Code(s): D72.828 - Other elevated white blood cell count (3) Polycythemia vera Current Visit: Yes Status: Chronic (4) Acute hypokalemia Current Visit: Yes Status: Acute (5) Hypomagnesemia Current Visit: Yes Status: Acute - Time Spent With Patient Total time spent is greater than 50% in coordination of care (as documented) at patient's floor/unit and/or counseling patient: - Constitutional Vitals: Temp Pulse Resp BP Pulse Ox 97.9 F 87 16 154/80 96 10/13/17 04:35 10/13/17 04:35 10/13/17 04:35 10/13/17 04:35 10/13/17 04:35 General appearance: Present: A&O X 3 Internal Medicine: Result - Labs CBC & Chem 7: 10/13/17 00:41 10/12/17 00:26 Labs: Short CBC 10/13/17 Range/Units 00:41 Hgb 8.6 L (11.5-15.4) g/dL Hct 31.0 L (35.3-44.9) % - ABG Interpretation ABG results: PT/INR, D-dimer PT 16.1 Seconds (9.4-12.1) H 10/11/17 11:15 D-Dimer 1281 ng/mLFEU (0-500) H 10/11/17 11:15 - Impressions Impressions Chest X-Ray 10/12/17 00:01 IMPRESSION: Bibasilar atelectasis. D/ / 10/12/2017 09:42:42 Bryan Cortes MD / [facility] Interpreting Provider: Bryan Cortes MD Chest CT 10/12/17 11:00 IMPRESSION: 1. No acute pulmonary abnormality to account for patient's shortness of breath. Please note that in the absence of intravenous contrast, sensitivity of the exam for thromboembolic disease is low. 2. Coronary artery disease. 3. Small pericardial effusion, increased compared to the exam of July 12, 2017. Pericardial fluid measures up to 7 mm in thickness. 4. Although not well seen on the CT of the chest, the spleen appears enlarged. If patient has corresponding clinical symptoms, consider ultrasound to assess splenic size. D/ / 10/12/2017 13:11:34 Eric Delaney MD / [facility] Interpreting Provider: Eric Delaney MD - VTE Reasons for not Prescribing Prophylaxis: Not indicated-Anticoagulated or INR therapeutic Consult Discharge Plan - Plan Referrals: Silver Díaz MD [Primary Care Provider] -
[2017-10-13] MEDS: amLODIPine 5 MG TABLET PO SCH (08:51)
[2017-10-13] MEDS: Famotidine 20 MG TABLET PO SCH (08:51)
[2017-10-13] MEDS: Metoprolol XL (24 HR) Succ 50 MG TAB.ER.24H PO SCH (08:51)
[2017-10-13] MEDS: Hydroxyurea 500 MG CAPSULE PO SCH (08:51)
[2017-10-13] MEDS: Lisinopril 20 MG TABLET PO SCH (08:52)
[2017-10-13] MEDS: Loratadine 10 MG TABLET PO SCH (08:52)
[2017-10-13] MEDS: Aspirin Enteric Coated 81 MG Tablet PO SCH (08:52)
[2017-10-13] MEDS: Apixaban 5 MG TABLET PO SCH ×2 (08:52→19:47)
[2017-10-13] MEDS: Gabapentin 300 MG CAPSULE PO SCH ×3 (08:52→19:48)
[2017-10-13] MEDS: predniSONE 20 MG TABLET PO SCH (08:52)
--- NOTE | 2017-10-13 23:46 | Internal Med Progress Note ---
Date of Encounter: 10/17/17 Time of Encounter: 23:45 - Assessment and plan (1) Anemia Status: Acute Qualifiers: Anemia type: iron deficiency Iron deficiency anemia type: unspecified iron deficiency Qualified Code(s): D50.9 - Iron deficiency anemia, unspecified (2) Leukocytosis Status: Acute Qualifiers: Leukocytosis type: unspecified Qualified Code(s): D72.829 - Elevated white blood cell count, unspecified (3) Polycythemia vera Status: Chronic (4) Acute hypokalemia Status: Acute (5) Hypomagnesemia Status: Resolved - Time Spent With Patient Total time spent is greater than 50% in coordination of care (as documented) at patient's floor/unit and/or counseling patient: 25 - 35 minutes - Subjective Interval history: .. Her difficulty breathing subsided. She is on room air oxygen. She feels weak; she is able to ambulate on her own. Complains of some pain in the left upper quadrantresulting from enlarged spleen. Denies chest pain. Denies abdominal pain, nausea and vomiting. She makes good amounts of urine. She received 1 dose of IV Venofer yesterday evening. She has not seen any black or red discoloration of her stool recently. OBJECTIVE: .. Constitutional: See below. Skin: Free of rash and discoloration ENMT: Oral/pharyngeal mucosa is normal in appearance. Eyes: Sclera is white. There is no discharge from eyes. Respiratory: Normal breath sounds; no crackles or wheezes. CV: Heart is regular; no gallop or murmur. GI: Abdomen is soft and not tender. There is no palpable mass or visceromegaly. Neuro: There is no focal deficits. ASSESSMENT AND PLAN: .. Shortness of breath/anemia. There is no indications for a blood transfusion. She has definitely iron deficiency. Her anemia could be resulting from Polycythemia Vera/taking hydroxyurea. She could also developed GI bleeding. She may need upper/lower endoscopy. See notes from hematology/oncology. Polycythemia vera. We will continue hydroxyurea at 500 mg by mouth daily, as recommended by hematology/oncology. Acute hypokalemia. On supplemental potassium chloride by mouth. We will check her electrolytes tomorrow. Hypomagnesemia. She got IV magnesium sulfate yesterday. We will check her magnesium tomorrow. NOTES: Also, see consult from pulmonary diseases. They do not see any pulmonary causes for her shortness of breath. - Constitutional Vitals: Temp Pulse Resp BP Pulse Ox 98.3 F 68 16 121/64 93 10/13/17 19:35 10/13/17 19:35 10/13/17 22:56 10/13/17 19:35 10/13/17 22:56 General appearance: Present: A&O X 3 Internal Medicine: Result - Labs CBC & Chem 7: 10/14/17 03:34 10/14/17 03:34 Labs: Short CBC 10/13/17 Range/Units 00:41 Hgb 8.6 L (11.5-15.4) g/dL Hct 31.0 L (35.3-44.9) % - ABG Interpretation ABG results: PT/INR, D-dimer PT 16.1 Seconds (9.4-12.1) H 10/11/17 11:15 D-Dimer 1281 ng/mLFEU (0-500) H 10/11/17 11:15 - Impressions Impressions Abdomen Ultrasound 10/12/17 09:00 IMPRESSION: Splenomegaly. D/ / Heladio Solitario MD / Heladio Solitario MD Interpreting Provider: Heladio Solitario MD - VTE Reasons for not Prescribing Prophylaxis: Not indicated-Anticoagulated or INR therapeutic Consult Discharge Plan - Plan Referrals: Silver Díaz MD [Primary Care Provider] -
[2017-10-14] MEDS: Ipratropium/Albuterol Neb 3 ML IH SCH ×2 (03:48→11:35)
[2017-10-14 04:06] LABS: Basophils % 0.2 %; Nucleated Red Blood Cells 0.7 /100 WBC (0); Segmented Neutrophils % 77.4 %
[2017-10-14 04:08] LABS: Basophils # 0.1 K/mcL (0.0-0.2); Eosinophils # 0.9 K/mcL (0.0-0.6); Hematocrit 32.3 % (35.3-44.9); Hemoglobin 8.9 g/dL (11.5-15.4); Immature Granulocytes % 6.5 % (0-4); Lymphocytes # 2.1 K/mcL (0.6-4.6); Lymphocytes % 7.1 %; Mean Corpuscular HGB Conc 27.6 g/dL (31.6-35.5); Mean Corpuscular Hemoglobin 19.9 pg (28.0-33.3); Mean Corpuscular Volume 72.3 fL (83.0-100.0); Mean Platelet Volume 11.2 fL (9.4-12.4); Monocytes # 1.7 K/mcL (0.0-1.3); Monocytes % 5.8 %; Neutrophils # 22.5 K/mcL (1.6-8.9); Platelet Count 493 K/mcL (140-400); Red Blood Count 4.47 M/mcL (3.82-4.97)
[2017-10-14 04:26] LABS: Magnesium 1.9 mg/dL (1.6-2.6); Potassium 4.6 mEq/L (3.5-5.1)
[2017-10-14 04:34] LABS: Anisocytosis 2+ (Not Present); Large Platelets Present (Not Present); Platelet Estimate Normal (Normal); Poikilocytosis 2+ (Not Present)
[2017-10-14] MEDS: *HR* HYDROcodone/Acet 5/325 mg TABLET PO PRN ×2 (05:30→11:28)
[2017-10-14] MEDS: Gabapentin 300 MG CAPSULE PO SCH (08:43)
[2017-10-14] MEDS: predniSONE 20 MG TABLET PO SCH (08:44)
[2017-10-14] MEDS: Lisinopril 20 MG TABLET PO SCH (08:44)
[2017-10-14] MEDS: Hydroxyurea 500 MG CAPSULE PO SCH (08:44)
[2017-10-14] MEDS: Loratadine 10 MG TABLET PO SCH (08:44)
[2017-10-14] MEDS: Metoprolol XL (24 HR) Succ 50 MG TAB.ER.24H PO SCH (08:44)
[2017-10-14] MEDS: Apixaban 5 MG TABLET PO SCH (08:44)
[2017-10-14] MEDS: Aspirin Enteric Coated 81 MG Tablet PO SCH (08:44)
[2017-10-14] MEDS: amLODIPine 5 MG TABLET PO SCH (08:44)
[2017-10-14] MEDS ORDERED: Famotidine 20 MG TABLET PO SCH (09:00)
--- NOTE | 2017-10-14 11:11 | Discharge Summary ---
- NOTES TO OUTPATIENT PROVIDER Notes to Outpatient Provider: The patient is to see Dr. Tidwell at the [facility] on October 25. He is to decide the, whether the patient needs upper/ lower endoscopy. She received one injection of IV Venofer during this hospitalization. Orders not resulted at time of discharge: Pending orders 10/12/17 09:33 Occult Blood,Stool [BF] Routine Date of Encounter: 10/14/17 Time of Encounter: 11:08 - Discharge Diagnosis (1) Anemia Priority: Primary Status: Acute Qualifiers: Anemia type: iron deficiency Iron deficiency anemia type: unspecified iron deficiency Qualified Code(s): D50.9 - Iron deficiency anemia, unspecified (2) Leukocytosis Priority: Primary Status: Acute Qualifiers: Leukocytosis type: unspecified Qualified Code(s): D72.829 - Elevated white blood cell count, unspecified (3) Polycythemia vera Priority: Primary Status: Chronic (4) Acute hypokalemia Priority: Secondary Status: Acute (5) Hypomagnesemia Priority: Secondary Status: Resolved Hospital course: Ms. Stoddard is a 72 year old femaleWith a long-standing history of polycythemia vera. We admitted her to the hospital with difficulty breathing. We found her to have hemoglobin of 9.6; 8.7 on the next day. She had WBC count of 39.5 thousand with admission; 29.1 thousand at the discharge. Her platelet count at admission was 476,000. We found her to have severe iron deficiency. Total iron was 12; with saturation of 3. We did not see her having GI bleeding. Consultation was obtained from hematology/oncology. They decided to continue hydroxyurea. Patient decided to give her 1 dose of IV Venofer. Pulmonary diseases were consulted. They did not find any evidence for pulmonary problems. Hypokalemia and hypomagnesemia found during this hospitalization were treated with by mouth potassium chloride/IV magnesium sulfate. The patient felt pretty good on the day of discharge from not having any resting dyspnea. The patient is to see Dr. Tidwell at the [facility] on October 25. He is to decide the, whether the patient needs upper/lower endoscopy. She received one injection of IV Venofer during this hospitalization. Discharge discussed with: patient, nurse - Time Spent with Patient Total time spent providing and/or coordinating discharge services: Greater than 30 minutes - Discharge Medications Home Medications: Amlodipine Besylate 10 mg PO DAILY 10/11/17 [History] Apixaban [Eliquis] 5 mg PO BID 10/11/17 [History] Aspirin [Lo-Dose Aspirin EC] 81 mg PO DAILY 10/11/17 [History] Atorvastatin [Lipitor] 40 mg PO HS 10/11/17 [History] Gabapentin [Neurontin] 300 mg PO QPM 10/11/17 [History] Gabapentin [Neurontin] 600 mg PO QAM 10/11/17 [History] Gabapentin [Neurontin] 900 mg PO HS 10/11/17 [History] Hydroxyurea 500 mg PO DAILY 10/11/17 [History] Lisinopril [Zestril] 40 mg PO DAILY 10/11/17 [History] Loratadine [Claritin] 10 mg PO DAILY 10/11/17 [History] Metoprolol Succinate [Toprol Xl] 50 mg PO DAILY 10/11/17 [History] Omeprazole [PriLOSEC] 20 mg PO HS 10/11/17 [History] Ranitidine HCl [Acid Side Guider] 150 mg PO BID 10/11/17 [History] Tizanidine HCl 4 mg PO HS PRN 10/11/17 [History] hydrOXYzine pamoate [HydrOXYzine Pamoate] 25 mg PO TID 10/11/17 [History] Acetaminophen [Tylenol] 650 mg PO Q6HR PRN tablet 10/14/17 [Rx] Docusate [Colace] 100 mg PO BID PRN capsule 10/14/17 [Rx] HYDROcodone/Acet 5/325 mg [[place] 5-325 mg] 1 tab PO Q6H PRN 14 Days #50 tablet 10/14/17 [Rx] Metoprolol XL (24 HR) Succ [Toprol Xl] 50 mg PO DAILY tab.er.24h 10/14/17 [Rx] Preparation H Ointment 1 appl TP BID PRN tube 10/14/17 [Rx] Allergies/Adverse Reactions: 3 Allergy/AdvReac Type Severity Reaction Status Date / Time No Known Allergies Allergy Verified 10/11/17 15:17 Date of admission: 10/11/17 15:17 Primary care physician: Silver Díaz MD Consults: 10/11/17 16:32 Consult to Pastoral Services [CONS] Routine Comment: Patient's son 2 weeks ago; grieving; 10/12/17 09:53 Consult to Pulmonology [CONS] Routine Consulting Provider: Katherine Crit [facility] Reason for Consult: SOB Call Completed: Yes Discharging clinician: Brain Arvizu Anticipated date of discharge: 10/14/17 - Constitutional Vitals: Temp Pulse Resp BP Pulse Ox 98.2 F 71 20 136/78 92 10/14/17 07:37 10/14/17 07:37 10/14/17 07:37 10/14/17 07:37 10/14/17 07:37 General appearance: Present: A&O X 3, no acute distress, answers questions appropriately - Respiratory Respiratory exam: Present: CTAB. Absent: accessory muscle use, rales, rhonchi, wheezes - Cardiovascular Cardiovascular exam: Present: RRR, +S1, +S2. Absent: diastolic murmur, gallop, rubs, systolic murmur - GI/Abdominal GI/Abdominal exam: Present: normal bowel sounds, soft, no peritoneal signs. Absent: distended, tenderness Additional comments: She has some tenderness some below her left rib cage, anteriorly. It corresponds to her enlarged spleen. I could not feel her spleen today. - Patient Status Disposition: Home, Self-Care Condition: Fair Functional capacity at discharge: independent ambulation Overall status at discharge: patient is progressing back to baseline - Discharge Instructions Follow Up With: Silver Díaz MD [Primary Care Provider] - - Diet and Activity Activity: increase activity as tolerated Diet: advance to your usual diet - VTE Reasons for not Prescribing Prophylaxis: Not indicated-Anticoagulated or INR therapeutic
[2017-10-14 12:17] VITALS: BP 137/74
== END 2017-10-14 12:45 | disposition home or self-care (01) ==
LOC: 2ANU 10:46 → EMEROO 10:46 → SUATTDRO 15:17 → 2ANU 16:16
PROVIDERS: ADMIT Internal Medicine; ATTEND Internal Medicine

== ENCOUNTER 2017-11-17 11:00 | Inpatient (IN) ==
[2017-11-17 11:37] LABS: Basophils % 0.2 %
[2017-11-17 11:39] LABS: Bilirubin,Urine Large (Negative); Blood,Urine Trace-intact (Negative); Clarity,Urine Clear (Clear); Color,Urine Yellow (Yellow); Glucose,Urine (UA) 100 mg/dL (Normal); Ketones,Urine Trace mg/dL (Negative); Leukocyte Esterase,Urine Trace (Negative); Nitrite,Urine Negative (Negative); Protein,Urine 100 mg/dL (Neg-Trace); Specific Gravity,Urine >= 1.030 (1.010-1.025)
[2017-11-17 11:39] LABS: Eosinophils # 0.1 K/mcL (0.0-0.6); Eosinophils % 3.1 %; Hematocrit 33.3 % (35.3-44.9); Hemoglobin 9.2 g/dL (11.5-15.4); Immature Granulocytes % 5.7 % (0-4); Lymphocytes # 1.4 K/mcL (0.6-4.6); Lymphocytes % 31.2 %; Mean Corpuscular HGB Conc 27.6 g/dL (31.6-35.5); Mean Corpuscular Hemoglobin 20.4 pg (28.0-33.3); Mean Corpuscular Volume 73.8 fL (83.0-100.0); Mean Platelet Volume 11.5 fL (9.4-12.4); Monocytes # 1.2 K/mcL (0.0-1.3); Monocytes % 25.9 %; Nucleated Red Blood Cells 0.4 /100 WBC (0); Platelet Count 354 K/mcL (140-400); Red Blood Count 4.51 M/mcL (3.82-4.97); Red Cell Distribution Width 23.9 % (11.5-14.5); Segmented Neutrophils % 33.9 %
[2017-11-17 11:41] LABS: Neutrophils # 1.6 K/mcL (1.6-8.9)
[2017-11-17 11:45] LABS: INR 1.4; Prothrombin Time 15.8 Seconds (9.4-12.1)
[2017-11-17 11:45] LABS: Bacteria,Urine Many per hpf (None-Few); RBC,Urine 0-3 per hpf (0-3); Squamous Epithelial Cell,Urine Many per lpf (None-Few); WBC,Urine 0-3 per hpf (0-3)
[2017-11-17 11:57] LABS: Albumin 3.8 g/dL (3.5-5.7); Albumin/Globulin Ratio 0.9 (1.1-2.2); Bilirubin,Total 1.3 mg/dL (0.3-1.0); Calcium 9.2 mg/dL (8.6-10.3); Globulin 4.1 g/dL (2.4-3.5); Magnesium 1.9 mg/dL (1.6-2.6); Potassium 3.9 mEq/L (3.5-5.1); Total Protein 7.9 g/dL (6.4-8.9)
[2017-11-17 11:59] LABS: Troponin I 0.04 ng/mL (< 0.04)
[2017-11-17 12:08] LABS: Anisocytosis 1+ (Not Present); Platelet Estimate Normal (Normal); Polychromasia 1+ (Not Present)
--- NOTE | 2017-11-17 12:10 | Emergency Department Note ---
Disposition Clinical Impression: JULEE (acute kidney injury), Elevated troponin, Weakness, Dizziness Disposition: Admitted As Inpatient Condition: Fair General Adult HPI - General Chief complaint: ED Weakness Stated complaint: Gen Weakness Time Seen by Provider: 11/17/17 11:04 Source: patient, family Mode of arrival: private vehicle Limitations: physical limitation Nursing Notes Reviewed: Yes Vital Signs Reviewed: Yes - History of Present Illness HPI Narrative: Patient is a 72-year-old female with past medical history including polycythemia vera on hydroxyurea and eliquis who presents with a chief complaint of dizziness and weakness for one week. Patient states she was recently treated for urinary tract infection on week ago she had lower abdominal pain. She completed a course of antibiotics, which she does not remember the name to. For the past week she states she has had decreased appetite and feeling generally weak. She has some chills but denies fevers. She states yesterday when she was getting up from a laying down, she felt dizzy and fell. She hit right side on the nightstand. She denies hitting her head or loss of consciousness. She complains of some right upper arm pain, where she now has a bruise. She states she feels more weak than usual and kidney used to become dizzy when she stands up. She denies numbness or tingling. Denies cough, shortness of breath, chest pain. Pain Scale: 0 - Related Data Home Medications Medication Instructions Recorded Confirmed Amlodipine Besylate 10 mg PO DAILY 10/11/17 10/11/17 Apixaban [Eliquis] 5 mg PO BID 10/11/17 10/11/17 Aspirin [Lo-Dose Aspirin EC] 81 mg PO DAILY 10/11/17 10/11/17 Atorvastatin [Lipitor] 40 mg PO HS 10/11/17 10/11/17 Gabapentin [Neurontin] 300 mg PO QPM 10/11/17 10/11/17 Gabapentin [Neurontin] 600 mg PO QAM 10/11/17 10/11/17 Gabapentin [Neurontin] 900 mg PO HS 10/11/17 10/11/17 Hydroxyurea 500 mg PO DAILY 10/11/17 10/11/17 Lisinopril [Zestril] 40 mg PO DAILY 10/11/17 10/11/17 Loratadine [Claritin] 10 mg PO DAILY 10/11/17 10/11/17 Omeprazole [PriLOSEC] 20 mg PO HS 10/11/17 10/11/17 Ranitidine HCl [Acid Station Chief] 150 mg PO BID 10/11/17 10/11/17 Tizanidine HCl 4 mg PO HS PRN 10/11/17 10/11/17 HYDROcodone/Acet 7.5/325 mg [[place] 1 - 2 tab PO Q8H PRN 11/17/17 11/17/17 7.5-325 mg] Previous Rx's Medication Instructions Recorded Acetaminophen [Tylenol] 650 mg PO Q6HR PRN tablet 10/14/17 Docusate [Colace] 100 mg PO BID PRN capsule 10/14/17 Metoprolol XL (24 HR) Succ [Toprol 50 mg PO DAILY tab.er.24h 10/14/17 Xl] Allergies Allergy/AdvReac Type Severity Reaction Status Date / Time No Known Allergies Allergy Verified 10/11/17 15:17 All systems ED: reviewed and negative except as stated. Review of Systems: As Per HPI Constitutional: Reports: chills, weakness. Denies: fever Eyes: Denies: vision change ENT ED: Denies: dysphagia Cardiovascular: Denies: chest pain, palpitations Respiratory: Denies: cough, dyspnea Gastrointestinal: Denies: abdominal pain, nausea, vomiting, diarrhea Genitourinary: Denies: dysuria Musculoskeletal: Reports: other (right arm pain) Integumentary: Denies: rash, abrasion, lesions Neurological: Reports: weakness. Denies: headache, numbness, paresthesias, confusion Hematological/Lymphatic: Reports: easy bruising Past Medical History - Past Medical History Attestation: Yes The following information was validated with the patient. Source: patient Medical history: Reports: hypertension, other Surgical history: Reports: heart valve replacement, herniorrhaphy Psychiatric history: Reports: anxiety, depression HEALTHCARE RECRUITER history: Reports: no HEALTHCARE RECRUITER history - Social History Smoking Status: Never smoker Smokeless Tobacco Status: No Alcohol use: Reports: none Drug use: Reports: none Physical Exam - General Limitations: physical limitation General appearance: alert, in no apparent distress - Head Head exam: atraumatic, normocephalic - Neck Neck exam: Present: full ROM. Absent: tenderness - Respiratory Respiratory exam: Present: normal lung sounds bilaterally. Absent: respiratory distress, wheezes - Cardiovascular Cardiovascular exam: Present: regular rate, normal rhythm, systolic murmur (3/6) - Abdominal Exam Abdominal exam: Present: soft, Non-Tender, normal bowel sounds - Extremities Exam Extremities exam: Present: full ROM, other (Ecchymosis over the anterior portion of midshaft of humerus with inimal tenderness) - Neurological Exam Neurological exam: Present: alert, oriented X3, CN II-XII intact, other (NIHSS 2 , bilateral lower extremity weakness. equal. likely related to muscle weakness instead of neurologic cause) - Expanded Neurological Exam Patient oriented to: Present: person, place, time Speech: Present: fluid speech Cranial nerves: EOM function (II, III, IV, ): Normal, facial sensation (V): Normal, facial palsy (VII): Normal, tongue deviation (XII): Normal Cerebellar function: finger to nose: Normal, heel to ng: Normal Motor strength - LUE: 5/5 Motor strength - RUE: 5/5 Motor strength - LLE: 4/5 Motor strength - RLE: 4/5 Upper motor neuron exam: berkley neglect: Absent bilaterally Sensory exam upper extremity: light touch: Normal Sensory exam lower extremity: light touch: Normal Coma Scale Eye Opening: Spontaneous Coma Scale Motor Response: Obeys Commands Coma Scale Verbal Response: Oriented Coma Scale Total: 15 - Psychiatric Psychiatric exam: Present: normal affect, normal mood - Skin Skin exam: Present: warm, dry Course Course Narrative: Patient presents with weakness, dizziness, had a fall yesterday secondary to this. We will check EKG, CBC, CMP, troponin, urinalysis, CXR, CT head and neck without contrast. Symptoms have been going on for one week. She has no gross neurologic deficits, stroke alert will not be called and she is not a TPA candidate. 12:15 EKG was sinus rhythm and no evidence of acute ischemia. Labs reviewed. Hemoglobin 9.2. This appears to be stable from previous. Bilirubin is elevated. Alkaline phosphatase is also elevated. There is bilirubin noted in her urine. She has not been complaining of any abdominal pain or nausea. Benign abdominal exam. Troponin 0.04, this is likely to her acute kidney injury. She has no chest pain or shortness of breath. Aspirin was given. No evidence of infection on urinalysis. CT head without evidence of intracranial hemorrhage or acute intracranial abnormalities. CT cervical spine shows no acute findings. Patient appears dehydrated will start 1 L normal saline. She will need to be admitted for further evaluation of weakness and dizziness. 12:50 Discussed with hospitalist,Dr. Sauer. He will accept the patient. He would like me to discuss with Cardiology about the patient's troponin 0.04. We believe this is related to the patient's acute kidney injury. She denies any chest pain and vitals are stable. Will consult Cardiology. 13:15 Discussed with cardiology, Dr. Hilliard. They recommended against heparin at this time and state they will see the patient if needed while in the hospital and to trend the troponin. Vital Signs Temperature 98.9 F 11/17/17 11:02 Pulse Rate 84 11/17/17 11:02 Respiratory Rate 16 11/17/17 11:02 Blood Pressure 96/61 11/17/17 11:02 O2 Sat by Pulse Oximetry 95 11/17/17 11:02 Temperature 98.9 F 11/17/17 11:05 Pulse Rate 80 11/17/17 13:11 Respiratory Rate 22 11/17/17 13:11 Blood Pressure 115/57 11/17/17 13:11 O2 Sat by Pulse Oximetry 93 11/17/17 13:11 Oxygen Delivery Oxygen Delivery Room Air Medical Decision Making - Medical Records Medical records reviewed: Yes I reviewed the patient's medical records. - Lab Data Lab results reviewed: Yes I reviewed the patient's lab results. Result diagrams: 11/17/17 11:24 11/17/17 11:24 Lab Results 11/17/17 11/17/17 11/17/17 Range/Units 11:24 11:24 11:24 WBC 4.6 (4.3-11.1) K/mcL RBC 4.51 (3.82-4.97) M/mcL Hgb 9.2 L (11.5-15.4) g/dL Hct 33.3 L (35.3-44.9) % MCV 73.8 L (83.0-100.0) fL MCH 20.4 L (28.0-33.3) pg MCHC 27.6 L (31.6-35.5) g/dL RDW 23.9 H (11.5-14.5) % Plt Count 354 (140-400) K/mcL MPV 11.5 (9.4-12.4) fL Immature Gran % 5.7 H (0-4) % Seg Neutrophils % 33.9 % Lymphocytes % 31.2 % Monocytes % 25.9 % Eosinophils % 3.1 % Basophils % 0.2 % Neutrophils # 1.6 (1.6-8.9) K/mcL Lymphocytes # 1.4 (0.6-4.6) K/mcL Monocytes # 1.2 (0.0-1.3) K/mcL Eosinophils # 0.1 (0.0-0.6) K/mcL Basophils # 0.0 (0.0-0.2) K/mcL Nucleated RBCs/100 WBC 0.4 H (0) /100 WBC Platelet Estimate Normal (Normal) Polychromasia 1+ A (Not Present) Anisocytosis 1+ A (Not Present) PT 15.8 H (9.4-12.1) Seconds INR 1.4 Sodium 132 L (136-145) mEq/L Potassium 3.9 (3.5-5.1) mEq/L Chloride 100 (98-107) mEq/L Carbon Dioxide 21 L (23-29) mEq/L BUN 36 H (8-23) mg/dL Creatinine 2.57 H (0.60-1.20) mg/dL Est GFR ( Amer) 22 L (> 60) Est GFR (Non-Af Amer) 18 L (> 60) BUN/Creatinine Ratio 14 (6-26) Glucose 110 H (70-105) mg/dL Calculated Osmolality 283 (280-300) Calcium 9.2 (8.6-10.3) mg/dL Magnesium 1.9 (1.6-2.6) mg/dL Total Bilirubin 1.3 H (0.3-1.0) mg/dL AST 20 (13-39) Units/L ALT 9 (7-52) Units/L Alkaline Phosphatase 175 H (34-104) Units/L Troponin I 0.04 H* (< 0.04) ng/mL Serum Total Protein 7.9 (6.4-8.9) g/dL Albumin 3.8 (3.5-5.7) g/dL Globulin 4.1 H (2.4-3.5) g/dL Albumin/Globulin Ratio 0.9 L (1.1-2.2) TSH 6.518 H (0.340-5.600) mcIU/mL Urine Color (Yellow) Urine Clarity (Clear) Urine pH (5.0-8.0) pH Units Ur Specific [place] (1.010-1.025) Urine Protein (Neg-Trace) mg/dL Urine Glucose (UA) (Normal) mg/dL Urine Ketones (Negative) mg/dL Urine Blood (Negative) Urine Nitrite (Negative) Urine Bilirubin (Negative) Urine Urobilinogen (Normal) mg/dL Ur Leukocyte Esterase (Negative) Urine Microscopic RBC (0-3) per hpf Urine Microscopic WBC (0-3) per hpf Ur Squamous Epith Cells (None-Few) per lpf Urine Bacteria (None-Few) per hpf Ur Culture Indicated? (NO) 11/17/17 Range/Units 11:27 WBC (4.3-11.1) K/mcL RBC (3.82-4.97) M/mcL Hgb (11.5-15.4) g/dL Hct (35.3-44.9) % MCV (83.0-100.0) fL MCH (28.0-33.3) pg MCHC (31.6-35.5) g/dL RDW (11.5-14.5) % Plt Count (140-400) K/mcL MPV (9.4-12.4) fL Immature Gran % (0-4) % Seg Neutrophils % % Lymphocytes % % Monocytes % % Eosinophils % % Basophils % % Neutrophils # (1.6-8.9) K/mcL Lymphocytes # (0.6-4.6) K/mcL Monocytes # (0.0-1.3) K/mcL Eosinophils # (0.0-0.6) K/mcL Basophils # (0.0-0.2) K/mcL Nucleated RBCs/100 WBC (0) /100 WBC Platelet Estimate (Normal) Polychromasia (Not Present) Anisocytosis (Not Present) PT (9.4-12.1) Seconds INR Sodium (136-145) mEq/L Potassium (3.5-5.1) mEq/L Chloride (98-107) mEq/L Carbon Dioxide (23-29) mEq/L BUN (8-23) mg/dL Creatinine (0.60-1.20) mg/dL Est GFR ( Amer) (> 60) Est GFR (Non-Af Amer) (> 60) BUN/Creatinine Ratio (6-26) Glucose (70-105) mg/dL Calculated Osmolality (280-300) Calcium (8.6-10.3) mg/dL Magnesium (1.6-2.6) mg/dL Total Bilirubin (0.3-1.0) mg/dL AST (13-39) Units/L ALT (7-52) Units/L Alkaline Phosphatase (34-104) Units/L Troponin I (< 0.04) ng/mL Serum Total Protein (6.4-8.9) g/dL Albumin (3.5-5.7) g/dL Globulin (2.4-3.5) g/dL Albumin/Globulin Ratio (1.1-2.2) TSH (0.340-5.600) mcIU/mL Urine Color Yellow (Yellow) Urine Clarity Clear (Clear) Urine pH 5.0 (5.0-8.0) pH Units Ur Specific [place] >= 1.030 H (1.010-1.025) Urine Protein 100 H (Neg-Trace) mg/dL Urine Glucose (UA) 100 H (Normal) mg/dL Urine Ketones Trace H (Negative) mg/dL Urine Blood Trace-intact H (Negative) Urine Nitrite Negative (Negative) Urine Bilirubin Large H (Negative) Urine Urobilinogen 2.0 H (Normal) mg/dL Ur Leukocyte Esterase Trace H (Negative) Urine Microscopic RBC 0-3 (0-3) per hpf Urine Microscopic WBC 0-3 (0-3) per hpf Ur Squamous Epith Cells Many H (None-Few) per lpf Urine Bacteria Many H (None-Few) per hpf Ur Culture Indicated? NO. A (NO) - Radiology Data Radiology results reviewed: Yes I reviewed the patient's radiology results. Chest X-Ray 11/17/17 11:17 IMPRESSION: Atelectatic changes seen within mid right lung with no acute cardiopulmonary process. D/ / Jesús Montanez MD / Jesús Montanez MD Interpreting Provider: Jesús Montanez MD Cervical Spine CT 11/17/17 11:21 IMPRESSION: No acute abnormality of the cervical spine. D/ / 11/17/2017 12:03:59 Hiram Michael MD / jair Interpreting Provider: Hiram Michael MD Head CT 11/17/17 11:21 IMPRESSION: No acute intracranial abnormality. Focal right occipital encephalomalacia, likely sequela of remote ischemic event though new since 08/23/2009. Mild white matter disease which likely reflects sequela of chronic microvascular ischemia, mildly progressive since 08/23/2009. Acute on chronic right maxillary sinusitis. D/ / Paulo Christine / Paulo Christine Interpreting Provider: Paulo Christine - EKG Data EKG #1 EKG attestation: Yes I reviewed and interpreted this EKG. EKG results narrative: EKG on 11/17/17 11:12 was sinus rhythm with rate 80 bpm. AR interval 127 ms. QRS duration 90 ms. QTC 388 ms. Nonspecific T-wave abnormalities. No ST elevation. No evidence of acute ischemia. Compared to prior EKG on 10/11/2017 which shows sinus rhythm with rate 66 bpm. Appears unchanged.
[2017-11-17 12:11] LABS: Thyroid Stimulating Hormone 6.518 mcIU/mL (0.340-5.600)
[2017-11-17] MEDS ORDERED: 0.9 % Sodium Chloride 1,000 ML IVC ONE (12:43)
--- NOTE | 2017-11-17 12:47 | Emergency Department Note ---
Disposition Clinical Impression: JULEE (acute kidney injury), Elevated troponin Disposition: Home, Self-Care Condition: Fair Forms: ED Satisfaction Letter General Adult HPI - General Chief complaint: ED Weakness Stated complaint: Gen Weakness Time Seen by Provider: 11/17/17 11:04 Source: patient, family Mode of arrival: private vehicle Limitations: physical limitation Nursing Notes Reviewed: Yes Vital Signs Reviewed: Yes - History of Present Illness Pain Scale: 0 - Related Data Home Medications Medication Instructions Recorded Confirmed Amlodipine Besylate 10 mg PO DAILY 10/11/17 10/11/17 Apixaban [Eliquis] 5 mg PO BID 10/11/17 10/11/17 Aspirin [Lo-Dose Aspirin EC] 81 mg PO DAILY 10/11/17 10/11/17 Atorvastatin [Lipitor] 40 mg PO HS 10/11/17 10/11/17 Gabapentin [Neurontin] 300 mg PO QPM 10/11/17 10/11/17 Gabapentin [Neurontin] 600 mg PO QAM 10/11/17 10/11/17 Gabapentin [Neurontin] 900 mg PO HS 10/11/17 10/11/17 Hydroxyurea 500 mg PO DAILY 10/11/17 10/11/17 Lisinopril [Zestril] 40 mg PO DAILY 10/11/17 10/11/17 Loratadine [Claritin] 10 mg PO DAILY 10/11/17 10/11/17 Metoprolol Succinate [Toprol Xl] 50 mg PO DAILY 10/11/17 10/11/17 Omeprazole [PriLOSEC] 20 mg PO HS 10/11/17 10/11/17 Ranitidine HCl [Acid Internal Medicine Physician] 150 mg PO BID 10/11/17 10/11/17 Tizanidine HCl 4 mg PO HS PRN 10/11/17 10/11/17 hydrOXYzine pamoate [HydrOXYzine 25 mg PO TID 10/11/17 10/11/17 Pamoate] Previous Rx's Medication Instructions Recorded Acetaminophen [Tylenol] 650 mg PO Q6HR PRN tablet 10/14/17 Docusate [Colace] 100 mg PO BID PRN capsule 10/14/17 HYDROcodone/Acet 5/325 mg [[place] 1 tab PO Q6H PRN 14 Days #50 tablet 10/14/17 5-325 mg] Metoprolol XL (24 HR) Succ [Toprol 50 mg PO DAILY tab.er.24h 10/14/17 Xl] Preparation H Ointment 1 appl TP BID PRN tube 10/14/17 Allergies Allergy/AdvReac Type Severity Reaction Status Date / Time No Known Allergies Allergy Verified 10/11/17 15:17 Constitutional: Reports: chills, weakness. Denies: fever Eyes: Denies: vision change ENT ED: Denies: dysphagia Cardiovascular: Denies: chest pain, palpitations Respiratory: Denies: cough, dyspnea Gastrointestinal: Denies: abdominal pain, nausea, vomiting, diarrhea Genitourinary: Denies: dysuria Musculoskeletal: Reports: other (right arm pain) Integumentary: Denies: rash, abrasion, lesions Neurological: Reports: weakness. Denies: headache, numbness, paresthesias, confusion Hematological/Lymphatic: Reports: easy bruising Past Medical History - Past Medical History Medical history: Reports: hypertension, other Surgical history: Reports: heart valve replacement, herniorrhaphy Psychiatric history: Reports: anxiety, depression BIOANALYST history: Reports: no BIOANALYST history - Social History Smoking Status: Never smoker Smokeless Tobacco Status: No Alcohol use: Reports: none Drug use: Reports: none Physical Exam - General Limitations: physical limitation General appearance: alert, in no apparent distress Course Vital Signs Temperature 98.9 F 11/17/17 11:02 Pulse Rate 84 11/17/17 11:02 Respiratory Rate 16 11/17/17 11:02 Blood Pressure 96/61 11/17/17 11:02 O2 Sat by Pulse Oximetry 95 11/17/17 11:02 Temperature 98.9 F 11/17/17 11:05 Pulse Rate 79 11/17/17 12:24 Respiratory Rate 17 11/17/17 12:24 Blood Pressure 101/55 11/17/17 12:24 O2 Sat by Pulse Oximetry 94 11/17/17 12:24 Oxygen Delivery Oxygen Delivery Room Air Medical Decision Making - Lab Data Result diagrams: 11/17/17 11:24 11/17/17 11:24 Lab Results 11/17/17 11/17/17 11/17/17 Range/Units 11:24 11:24 11:24 WBC 4.6 (4.3-11.1) K/mcL RBC 4.51 (3.82-4.97) M/mcL Hgb 9.2 L (11.5-15.4) g/dL Hct 33.3 L (35.3-44.9) % MCV 73.8 L (83.0-100.0) fL MCH 20.4 L (28.0-33.3) pg MCHC 27.6 L (31.6-35.5) g/dL RDW 23.9 H (11.5-14.5) % Plt Count 354 (140-400) K/mcL MPV 11.5 (9.4-12.4) fL Immature Gran % 5.7 H (0-4) % Seg Neutrophils % 33.9 % Lymphocytes % 31.2 % Monocytes % 25.9 % Eosinophils % 3.1 % Basophils % 0.2 % Neutrophils # 1.6 (1.6-8.9) K/mcL Lymphocytes # 1.4 (0.6-4.6) K/mcL Monocytes # 1.2 (0.0-1.3) K/mcL Eosinophils # 0.1 (0.0-0.6) K/mcL Basophils # 0.0 (0.0-0.2) K/mcL Nucleated RBCs/100 WBC 0.4 H (0) /100 WBC Platelet Estimate Normal (Normal) Polychromasia 1+ A (Not Present) Anisocytosis 1+ A (Not Present) PT 15.8 H (9.4-12.1) Seconds INR 1.4 Sodium 132 L (136-145) mEq/L Potassium 3.9 (3.5-5.1) mEq/L Chloride 100 (98-107) mEq/L Carbon Dioxide 21 L (23-29) mEq/L BUN 36 H (8-23) mg/dL Creatinine 2.57 H (0.60-1.20) mg/dL Est GFR ( Amer) 22 L (> 60) Est GFR (Non-Af Amer) 18 L (> 60) BUN/Creatinine Ratio 14 (6-26) Glucose 110 H (70-105) mg/dL Calculated Osmolality 283 (280-300) Calcium 9.2 (8.6-10.3) mg/dL Magnesium 1.9 (1.6-2.6) mg/dL Total Bilirubin 1.3 H (0.3-1.0) mg/dL AST 20 (13-39) Units/L ALT 9 (7-52) Units/L Alkaline Phosphatase 175 H (34-104) Units/L Troponin I 0.04 H* (< 0.04) ng/mL Serum Total Protein 7.9 (6.4-8.9) g/dL Albumin 3.8 (3.5-5.7) g/dL Globulin 4.1 H (2.4-3.5) g/dL Albumin/Globulin Ratio 0.9 L (1.1-2.2) TSH 6.518 H (0.340-5.600) mcIU/mL Urine Color (Yellow) Urine Clarity (Clear) Urine pH (5.0-8.0) pH Units Ur Specific [place] (1.010-1.025) Urine Protein (Neg-Trace) mg/dL Urine Glucose (UA) (Normal) mg/dL Urine Ketones (Negative) mg/dL Urine Blood (Negative) Urine Nitrite (Negative) Urine Bilirubin (Negative) Urine Urobilinogen (Normal) mg/dL Ur Leukocyte Esterase (Negative) Urine Microscopic RBC (0-3) per hpf Urine Microscopic WBC (0-3) per hpf Ur Squamous Epith Cells (None-Few) per lpf Urine Bacteria (None-Few) per hpf Ur Culture Indicated? (NO) 11/17/17 Range/Units 11:27 WBC (4.3-11.1) K/mcL RBC (3.82-4.97) M/mcL Hgb (11.5-15.4) g/dL Hct (35.3-44.9) % MCV (83.0-100.0) fL MCH (28.0-33.3) pg MCHC (31.6-35.5) g/dL RDW (11.5-14.5) % Plt Count (140-400) K/mcL MPV (9.4-12.4) fL Immature Gran % (0-4) % Seg Neutrophils % % Lymphocytes % % Monocytes % % Eosinophils % % Basophils % % Neutrophils # (1.6-8.9) K/mcL Lymphocytes # (0.6-4.6) K/mcL Monocytes # (0.0-1.3) K/mcL Eosinophils # (0.0-0.6) K/mcL Basophils # (0.0-0.2) K/mcL Nucleated RBCs/100 WBC (0) /100 WBC Platelet Estimate (Normal) Polychromasia (Not Present) Anisocytosis (Not Present) PT (9.4-12.1) Seconds INR Sodium (136-145) mEq/L Potassium (3.5-5.1) mEq/L Chloride (98-107) mEq/L Carbon Dioxide (23-29) mEq/L BUN (8-23) mg/dL Creatinine (0.60-1.20) mg/dL Est GFR ( Amer) (> 60) Est GFR (Non-Af Amer) (> 60) BUN/Creatinine Ratio (6-26) Glucose (70-105) mg/dL Calculated Osmolality (280-300) Calcium (8.6-10.3) mg/dL Magnesium (1.6-2.6) mg/dL Total Bilirubin (0.3-1.0) mg/dL AST (13-39) Units/L ALT (7-52) Units/L Alkaline Phosphatase (34-104) Units/L Troponin I (< 0.04) ng/mL Serum Total Protein (6.4-8.9) g/dL Albumin (3.5-5.7) g/dL Globulin (2.4-3.5) g/dL Albumin/Globulin Ratio (1.1-2.2) TSH (0.340-5.600) mcIU/mL Urine Color Yellow (Yellow) Urine Clarity Clear (Clear) Urine pH 5.0 (5.0-8.0) pH Units Ur Specific [place] >= 1.030 H (1.010-1.025) Urine Protein 100 H (Neg-Trace) mg/dL Urine Glucose (UA) 100 H (Normal) mg/dL Urine Ketones Trace H (Negative) mg/dL Urine Blood Trace-intact H (Negative) Urine Nitrite Negative (Negative) Urine Bilirubin Large H (Negative) Urine Urobilinogen 2.0 H (Normal) mg/dL Ur Leukocyte Esterase Trace H (Negative) Urine Microscopic RBC 0-3 (0-3) per hpf Urine Microscopic WBC 0-3 (0-3) per hpf Ur Squamous Epith Cells Many H (None-Few) per lpf Urine Bacteria Many H (None-Few) per hpf Ur Culture Indicated? NO. A (NO) Attestation Statement - Attestation Attestation: I, Maxx Perez, examined this patient and my medical decision-making was reviewed with the HEALTH INSURANCE AGENT/PA/Advanced Practice Nurse/Resident Physician. I agree with the documented findings, disposition and treatment plan as described except to the extent set forth below. 72-year-old female presents emergency Department with concerns of increasing weakness. Patient states she was diagnosed with urinary tract infection one week ago, she states she finished a course of outpatient antibiotics without improvement of her symptoms. She has been unable to tolerate by mouth intake over the past 8 days secondary to nausea. Patient now stating that she feels dizzy and lightheaded with standing. She fell yesterday but denies loss of consciousness or hitting her head. She has a history of polycythemia vera, she had multiple blood clots and is now on our request. He to the head was negative for acute fracture or intracranial hemorrhage. Chest x-ray did not show evidence of pneumonia. Her analysis was negative for urinary tract infection. She does have acute kidney injury with elevation of her creatinine. She also has elevation of her troponin to 0.04 which is likely secondary to her acute kidney injury. Patient will be admitted to the hospitalist for further care and evaluation.
[2017-11-17] MEDS ORDERED: Aspirin 325 MG TABLET PO ONE (12:55)
--- NOTE | 2017-11-17 13:19 | Internal Med History&Physical ---
Date of Encounter: 11/17/17 Time of Encounter: 13:16 Internal Medicine - H&P: HPI Chief complaint: weakness Admitted From: Home Plans for Post Hospital Care: Home History of present illness: Ms. Stoddard is a 72 year old female history of polycythemia vera on hydroxyurea and multiple thromboembolisms on eliquis presented to the ED with complaint of generalized weakness. As per patient the night before admission she was getting out of bed by felt weak and hit her right arm to the nightstand. Denies any trauma, vision loss, loss of conciousness, seizure like activity. However she does complain of the right arm pain. She reports that her generalized weakness started about a week ago and has been progressively worsening. She was seen at her primary care doctor for complaints of dysuria about 10 days ago where she was prescribed antibiotics. She finished the course of her antibiotics( does not recall name) but still complains of dysuria and frequency and additionally developed weakness and fatigue. she denies any abnormal bleeding, reports that she is compliant with her medications. she follows up at [facility] for her polycythemia. she deoes report loss of appetite in addition to the generalized weakness nad fatigue but denies any significant weight loss. In the ED she was found to have mildly elevated troponin and JULEE. CT head and neck was done - results below. she was loaded with ASA and cardiology was consulted for elevated troponin by the ED physician. she was endorsed for admission for dehydration and JULEE. She denies fever, chills, chest pain, SOB, palpitations, N/V/D, RUQ pain while/ after eating, Abdominal pain, hemoptysis, hematochezia, melena, abnormal bleeding, prolonged immobilization. Past Med Surg Social Fam HX - Past Medical History Medical history: hypertension, other Additional medical history: polycythemia vera Psychiatric history: anxiety, depression - Past Surgical History Surgical History: heart valve replacement, herniorrhaphy Additional surgical history: b/l foot surgery. "covered hole in heart" - Social History Smoking Status: Never smoker Smokeless Tobacco Status: No Alcohol use: none Drug use: none - Family History Mother History Unknown: Yes Name: Janay Family Member Ethnicity: Non- Living Status: Age at : 75 Cause of : "lungs" Hx Family Cardiac Disorders: No Hx Family Respiratory Disorders: Yes Hx Family Cancer: No Hx Family GI Disorders: No Hx Family Genitourinary Disorders: No Hx Family Endocrine Disorder: No Hx Family Musculoskeletal Disorders: No Hx Family Neurologic Disorders: No Hx Family HEENT Disorders: No Hx Family Autoimmune Disorders: No Hx Family Reproductive Disorders: No Hx Family Psychosocial Disorders: No Hx Family Medical Disorders: No Father History Unknown: Yes Name: Barrett Family Member Ethnicity: Non- Living Status: Age at : 59 Cause of : heart attack Hx Family Cardiac Disorders: Yes Hx Family Respiratory Disorders: Yes Hx Family Cancer: No Hx Family GI Disorders: No Hx Family Genitourinary Disorders: No Hx Family Endocrine Disorder: No Hx Family Musculoskeletal Disorders: No Hx Family Neuromuscular Disorders: No Hx Family Neurologic Disorders: No Hx Family HEENT Disorders: No Hx Family Autoimmune Disorders: No Hx Family Reproductive Disorders: No Hx Family Psychosocial Disorders: No Hx Family Medical Disorders: No Internal Medicine - H&P: Meds Amlodipine Besylate 10 mg PO DAILY 10/11/17 [History] Apixaban [Eliquis] 5 mg PO BID 10/11/17 [History] Aspirin [Lo-Dose Aspirin EC] 81 mg PO DAILY 10/11/17 [History] Atorvastatin [Lipitor] 40 mg PO HS 10/11/17 [History] Gabapentin [Neurontin] 300 mg PO QPM 10/11/17 [History] Gabapentin [Neurontin] 600 mg PO QAM 10/11/17 [History] Gabapentin [Neurontin] 900 mg PO HS 10/11/17 [History] Hydroxyurea 500 mg PO DAILY 10/11/17 [History] Lisinopril [Zestril] 40 mg PO DAILY 10/11/17 [History] Loratadine [Claritin] 10 mg PO DAILY 10/11/17 [History] Omeprazole [PriLOSEC] 20 mg PO HS 10/11/17 [History] Ranitidine HCl [Acid Field Operations Supervisor] 150 mg PO BID 10/11/17 [History] Tizanidine HCl 4 mg PO HS PRN 10/11/17 [History] Acetaminophen [Tylenol] 650 mg PO Q6HR PRN tablet 10/14/17 [Rx] Docusate [Colace] 100 mg PO BID PRN capsule 10/14/17 [Rx] Metoprolol XL (24 HR) Succ [Toprol Xl] 50 mg PO DAILY tab.er.24h 10/14/17 [Rx] HYDROcodone/Acet 7.5/325 mg [[place] 7.5-325 mg] 1 - 2 tab PO Q8H PRN 11/17/17 [ History] 3 Allergy/AdvReac Type Severity Reaction Status Date / Time No Known Allergies Allergy Verified 10/11/17 15:17 All Systems PM: review of systems was performed and is negative for pertinent findings except as documented above in the HPI. - Constitutional Vitals: Temp Pulse Resp BP Pulse Ox 98.9 F 80 22 115/57 93 11/17/17 11:05 11/17/17 13:11 11/17/17 13:11 11/17/17 13:11 11/17/17 13:11 - Other Additional findings: General: Patient is alert, oriented, no acute distress, Head: atraumatic, normocephalic, Eye: normal appearance, PERRL, no scleral icterus, no conjunctival injection ENT: mucous membranes dry normal external ear exam Neck: normal inspection, trachea midline, full ROM, no carotid bruits Chest: normal inspection, symmetric chest rise Respiratory: Good respiratory effort. Bilateral breath sounds are clear without wheezing, crackles, or rhonchi. Cardiovascular: Regular rate and rhythm. s1 and s2 No clicks, rubs, gallops, or murmors. Abdomen: Bowel sounds present normoactive x-4 quadrants. Abdomen is soft, nondistended. No guarding or rebound. No organomegaly noted, obese, no CVA tenderness, tobar sign negative musculoskeletal: Spontaneously moving all extremities. no edema, no calf tenderness Skin: warm, dry, intact., small ecchymosis of the right arm , no signs of hematoma, mild tenderness on palpation, no mass felt Neuro: Alert and oriented x4. Sensation light touch intact. Cranial nerves 2- 12 is intact. strength is 5/5 in all extremities, no nystagmus, rapid hand movements intact, [id number] intact, Psych: Patient's affect is normal Internal Med - H&P Results - Labs CBC & Chem 7: 11/17/17 16:26 11/17/17 11:24 - EKG Data -: EKG Interpreted by Myself (sinus rhythm, non specific ST-T changes, LAD, [id number]) - EKG Data Prior EKG available for review: yes When compared to previous EKG: there is no significant change - Diagnostic Studies CT scan - head Additional comments: radiology reports Ct cervical spine IMPRESSION: No acute abnormality of the cervical spine. Ct head IMPRESSION: No acute intracranial abnormality. Focal right occipital encephalomalacia, likely sequela of remote ischemic event though new since 08/23/2009. Mild white matter disease which likely reflects sequela of chronic microvascular ischemia, mildly progressive since 08/23/2009. Acute on chronic right maxillary sinusitis. - Assessment and plan (1) Weakness Current Visit: Yes Status: Acute Assessment and plan: generalized weakness and fatigue which has improved since she has arrived to [facility] ED TSH is high ? hypothyroid- will send free T4 also has had poor oral intake with JULEE can be secondary to dehydration - will start IVF for hydration CT head and cervical spine in the ED - results above also anemic can be anemia induced although H/h is stable as compared to admission in september cardiac monitoring ezekiel send magnesium and Po4 and CPK neurochecks Q4H fall precautions border line hypotensive SBP in the 90s - will hold all Antihypertensives for now. (2) JULEE (acute kidney injury) Current Visit: Yes Status: Acute Assessment and plan: was recently treated for UTI with ABx ( not sure the name) UA has trace LE, still symptomatic ?secondary to hypoperfusion from dehydration ( is border line hypotensive) will get renal US to rule out hydronephrosis and obstruction will continue IVF repeat BMP in the AM pollack end urine eosonophils Avoid nephrotoxic medications strict intake and out put bladder scan Q4H 1st one now if more than 400cc place kimble (3) Elevated troponin Current Visit: Yes Status: Acute Assessment and plan: mildly elevated troponin secondary to ?dehydration in setting of JULEE, and hypotension- ? supply vs demand mismatch. denies chest pain. cardiology was consulted by the ED physician - follow reccomentations will follow troponins Q6H will continue home medications if not CI cardiac monitoring was given ASA 325 mg by the ED physician TTE in september 2017 - mild diastolic dysfunction will continue with IVF continue BB and lipitor lipid panel in the AM (4) Anemia Current Visit: Yes Status: Acute Assessment and plan: ?secondary to hydroxyurea but also has history of polycythemia set up inspector consulted will stop hydroxyurea ( can cause anemia) - discussed with set up inspector B12, folate, LDH, Iron, Ferritin, direct bilirubin has elevated bilirubin and ALP rule out hemolysis vs gallbladder pathology - US of the retroperitoneum ordered- follow report stool guaiac type and screen stat H/h on 10/11/17 was 8.7/30.9- currently hemoglobin is 9 does have area of ecchymosis on the right upper extremity - will continue to monitor the area will follow another CBC at 5 pm and Q6H will get orthostatics hemodynamically stable will continue eliquis as she is high risk for VTE - discussed with set up inspector will transfuse 1 PRBC if H/H continues to trend down. - discussed with set up inspector Qualifiers: Anemia type: unspecified type Qualified Code(s): D64.9 - Anemia, unspecified (5) UTI (urinary tract infection) Current Visit: Yes Status: Acute Assessment and plan: recently treated as OP still symptomatic UA with LE positive but large amount of squamous cell will start her on cefrtiaxone resent UA and Ucx Qualifiers: Urinary tract infection type: acute cystitis Hematuria presence: without hematuria Qualified Code(s): N30.00 - Acute cystitis without hematuria (6) Elevated TSH Current Visit: Yes Status: Acute Assessment and plan: ? hypothyoid will send free T4 (7) VTE (venous thromboembolism) Current Visit: No Status: Acute Assessment and plan: on eliquis will continue renally adjusted - pharmacy aware (8) Polycythemia vera Current Visit: No Status: Chronic Assessment and plan: currently anemic will stop hydroxyurea for now discussed with set up inspector (9) DVT prophylaxis Current Visit: Yes Status: Acute Assessment and plan: on eliquis - Time Spent With Patient Total time spent is greater than 50% in coordination of care (as documented) at patient's floor/unit and/or counseling patient:
[2017-11-17 14:48] LABS: Magnesium 1.8 mg/dL (1.6-2.6); Phosphorous 3.8 mg/dL (2.7-4.5)
[2017-11-17 14:50] LABS: % Iron Saturation 4 % (15-50); Iron 13 mcg/dL (50-170); Lactate Dehydrogenase 497 Units/L (140-271); Transferrin 237 mg/dL (203-362)
[2017-11-17 15:08] LABS: Ferritin 51 ng/mL (10-120)
[2017-11-17 15:15] LABS: Folate 12.2 ng/mL (3.0-16.0)
[2017-11-17 16:44] LABS: Hemoglobin 7.9 g/dL (11.5-15.4); Immature Platelets 11.9 % (1.1-6.1); Mean Corpuscular HGB Conc 27.2 g/dL (31.6-35.5); Mean Corpuscular Hemoglobin 20.2 pg (28.0-33.3); Mean Corpuscular Volume 74.2 fL (83.0-100.0); Mean Platelet Volume 11.3 fL (9.4-12.4); Red Blood Count 3.91 M/mcL (3.82-4.97); Red Cell Distribution Width 23.5 % (11.5-14.5)
[2017-11-17] MEDS: 0.9 % Sodium Chloride 1,000 ML IVC SCH (16:53)
[2017-11-17 17:02] LABS: Bilirubin,Urine Moderate (Negative); Blood,Urine Negative (Negative); Clarity,Urine Clear (Clear); Color,Urine Yellow (Yellow); Glucose,Urine (UA) Normal (Normal); Ketones,Urine Trace mg/dL (Negative); Leukocyte Esterase,Urine Small (Negative); Nitrite,Urine Negative (Negative); Protein,Urine Negative (Neg-Trace); Specific Gravity,Urine 1.026 (1.010-1.025); Urobilinogen,Urine Normal (Normal)
[2017-11-17 17:04] LABS: Bacteria,Urine None Seen per hpf (None-Few); Hyaline Casts,Urine Few per lpf (None-Few); Squamous Epithelial Cell,Urine Many per lpf (None-Few)
[2017-11-17] MEDS: cefTRIAXone 2,000 MG in Water for inj. (sterile) 20 ML 20 ML IVP SCH (17:59)
[2017-11-17] MEDS ORDERED: Gabapentin 300 MG CAPSULE PO SCH ×2 (18:00→21:00)
[2017-11-17] MEDS: Apixaban 2.5 MG TABLET PO SCH (20:55)
[2017-11-17] MEDS: Famotidine 20 MG TABLET PO SCH (20:55)
[2017-11-17 23:43] LABS: Basophils % 0.3 %
[2017-11-17 23:44] LABS: Eosinophils # 0.1 K/mcL (0.0-0.6); Eosinophils % 2.7 %; Hematocrit 31.6 % (35.3-44.9); Hemoglobin 8.6 g/dL (11.5-15.4); Immature Granulocytes % 9.3 % (0-4); Lymphocytes % 27.7 %; Mean Corpuscular HGB Conc 27.2 g/dL (31.6-35.5); Mean Corpuscular Hemoglobin 20.3 pg (28.0-33.3); Mean Corpuscular Volume 74.7 fL (83.0-100.0); Monocytes # 0.8 K/mcL (0.0-1.3); Monocytes % 22.5 %; Neutrophils # 1.4 K/mcL (1.6-8.9); Nucleated Red Blood Cells 0.8 /100 WBC (0); Platelet Count 324 K/mcL (140-400); Red Blood Count 4.23 M/mcL (3.82-4.97); Red Cell Distribution Width 23.9 % (11.5-14.5); Segmented Neutrophils % 37.5 %
[2017-11-18 00:05] LABS: Anisocytosis 2+ (Not Present); Burr Cells 1+ (Not Present); Hypochromasia Present (Not Present); Ovalocytes 1+ (Not Present); Platelet Estimate Normal (Normal); Poikilocytosis 2+ (Not Present); Polychromasia 1+ (Not Present)
[2017-11-18] MEDS: 0.9 % Sodium Chloride 1,000 ML IVC SCH ×2 (00:52→17:59)
[2017-11-18] MEDS ORDERED: Ondansetron ODT 4 MG TAB.RAPDIS SL ONE (01:10)
[2017-11-18] MEDS: Acetaminophen 325 MG TABLET PO PRN ×2 (02:16→23:55)
[2017-11-18 06:55] LABS: Eosinophils # 0.1 K/mcL (0.0-0.6); Hematocrit 30.1 % (35.3-44.9); Hemoglobin 8.2 g/dL (11.5-15.4); Mean Corpuscular HGB Conc 27.2 g/dL (31.6-35.5); Mean Corpuscular Hemoglobin 20.4 pg (28.0-33.3); Mean Corpuscular Volume 74.9 fL (83.0-100.0); Nucleated Red Blood Cells 0.5 /100 WBC (0); Platelet Count 318 K/mcL (140-400); Red Blood Count 4.02 M/mcL (3.82-4.97); Red Cell Distribution Width 23.8 % (11.5-14.5)
[2017-11-18 07:16] LABS: Albumin/Globulin Ratio 0.9 (1.1-2.2); Bilirubin,Total 0.9 mg/dL (0.3-1.0); Calcium 8.2 mg/dL (8.6-10.3); Chol/HDL Ratio 5.9 (0-4.9); Globulin 3.2 g/dL (2.4-3.5); Potassium 3.7 mEq/L (3.5-5.1); Total Protein 6.2 g/dL (6.4-8.9)
[2017-11-18 07:17] LABS: Anisocytosis 2+ (Not Present); Hypochromasia Present (Not Present); Large Platelets Present (Not Present); Lymphocytes # 1.2 K/mcL (0.6-4.6); Macrocytosis Present (Not Present); Monocytes # 0.7 K/mcL (0.0-1.3); Neutrophils # 1.7 K/mcL (1.6-8.9); Platelet Estimate Normal (Normal)
[2017-11-18] MEDS: Loratadine 10 MG TABLET PO SCH (08:57)
[2017-11-18] MEDS: Famotidine 20 MG TABLET PO SCH ×2 (08:57→20:19)
[2017-11-18] MEDS: Aspirin Enteric Coated 81 MG Tablet PO SCH (08:58)
[2017-11-18] MEDS: Apixaban 2.5 MG TABLET PO SCH ×2 (08:58→20:18)
[2017-11-18] MEDS ORDERED: Gabapentin 300 MG CAPSULE PO SCH ×2 (09:00→21:00)
[2017-11-18] MEDS ORDERED: amLODIPine 5 MG TABLET PO SCH (09:00)
[2017-11-18] MEDS ORDERED: Metoprolol XL (24 HR) Succ 50 MG TAB.ER.24H PO SCH (09:00)
[2017-11-18] MEDS ORDERED: Hydroxyurea 500 MG CAPSULE PO SCH (09:00)
--- NOTE | 2017-11-18 09:59 | Oncology Inp Consult Note ---
Date of Encounter: 11/18/17 Time of Encounter: 08:00 Assessment and Plan (1) Polycythemia vera Status: Chronic Assessment and plan: Patient was on hydroxyurea 500 mg daily due to borderline elevated white blood count and platelets around 700,000 splenomegaly hemoglobin was around 9 g or so earlier this month, lab works today has shown significant anemia, leukopenia and platelets within normal range. She is recently treated for urinary tract infection with antibiotics. We will hold hydroxyurea, this is likely myelosuppression from hydroxyurea in the setting of recent bleeding treated infection rather than other complications associated with polycythemia. Ferritin is around 50, may need iron supplementation as an outpatient continues to be anemic lately. B12 folate, she does not require supplementation. Agree with decreasing dose of Eliquis to 2.5 mg twice daily to continue as an outpatient regimen. The plan discussed with house staff yesterday and discussed with patient this morning. - Data of Consult Requesting Physician: Melquiades Sauer MD Primary Care Provider: Silver Díaz MD - Consult Narrative Reason for consult: Hx P vera, and iron deficiency, anemia History of present illness: Ms. Stoddard is a 72 year old female with medical history significant for polycythemia vera, on hydroxyurea, seen Dr. Marie at [facility] , cerebrovascular accidents, thromboembolic complications including pulmonary embolism and hypertension, had prior hospitalization for anemia, she has not had phlebotomy in a long time and denies any gross GI bleeding, she reports some episode of hematuria. She had taken iron supplementation before. She is also taking Eliquis 5 mg twice daily with a history of thrombosis. History of UTI status post completion of antibiotics. She reports that due to low blood pressure she had not taken her blood pressure medications for 2 days. Abdominal ultrasound done September 2017 had shown a splenomegaly. During her last clinic visit 10/25/2017 her white count was around 10,000, platelets around 700,000 hemoglobin at around 9.2, she was recommended continue hydroxyurea. Past Med Surg Social Fam HX - Past Medical History Medical history: hypertension, other Additional medical history: polycythemia vera Psychiatric history: anxiety, depression - Past Surgical History Surgical History: heart valve replacement, herniorrhaphy Additional surgical history: b/l foot surgery. "covered hole in heart" - Social History Smoking Status: Never smoker Smokeless Tobacco Status: No Alcohol use: none Drug use: none - Family History Mother History Unknown: Yes Name: Janay Family Member Ethnicity: Non- Living Status: Age at : 75 Cause of : "lungs" Hx Family Cardiac Disorders: No Hx Family Respiratory Disorders: Yes Hx Family Cancer: No Hx Family GI Disorders: No Hx Family Genitourinary Disorders: No Hx Family Endocrine Disorder: No Hx Family Musculoskeletal Disorders: No Hx Family Neurologic Disorders: No Hx Family HEENT Disorders: No Hx Family Autoimmune Disorders: No Hx Family Reproductive Disorders: No Hx Family Psychosocial Disorders: No Hx Family Medical Disorders: No Father History Unknown: Yes Name: Barrett Family Member Ethnicity: Non- Living Status: Age at : 59 Cause of : heart attack Hx Family Cardiac Disorders: Yes Hx Family Respiratory Disorders: Yes Hx Family Cancer: No Hx Family GI Disorders: No Hx Family Genitourinary Disorders: No Hx Family Endocrine Disorder: No Hx Family Musculoskeletal Disorders: No Hx Family Neuromuscular Disorders: No Hx Family Neurologic Disorders: No Hx Family HEENT Disorders: No Hx Family Autoimmune Disorders: No Hx Family Reproductive Disorders: No Hx Family Psychosocial Disorders: No Hx Family Medical Disorders: No Medications and Allergies Amlodipine Besylate 10 mg PO DAILY 10/11/17 [History] Apixaban [Eliquis] 5 mg PO BID 10/11/17 [History] Aspirin [Lo-Dose Aspirin EC] 81 mg PO DAILY 10/11/17 [History] Atorvastatin [Lipitor] 40 mg PO HS 10/11/17 [History] Gabapentin [Neurontin] 300 mg PO QPM 10/11/17 [History] Gabapentin [Neurontin] 600 mg PO QAM 10/11/17 [History] Gabapentin [Neurontin] 900 mg PO HS 10/11/17 [History] Hydroxyurea 500 mg PO DAILY 10/11/17 [History] Lisinopril [Zestril] 40 mg PO DAILY 10/11/17 [History] Loratadine [Claritin] 10 mg PO DAILY 10/11/17 [History] Omeprazole [PriLOSEC] 20 mg PO HS 10/11/17 [History] Ranitidine HCl [Acid Sampler And Test Preparer] 150 mg PO BID 10/11/17 [History] Tizanidine HCl 4 mg PO HS PRN 10/11/17 [History] Acetaminophen [Tylenol] 650 mg PO Q6HR PRN tablet 10/14/17 [Rx] Docusate [Colace] 100 mg PO BID PRN capsule 10/14/17 [Rx] Metoprolol XL (24 HR) Succ [Toprol Xl] 50 mg PO DAILY tab.er.24h 10/14/17 [Rx] HYDROcodone/Acet 7.5/325 mg [[place] 7.5-325 mg] 1 - 2 tab PO Q8H PRN 11/17/17 [ History] 3 Allergy/AdvReac Type Severity Reaction Status Date / Time No Known Allergies Allergy Verified 10/11/17 15:17 Constitutional: Present: fatigue Oncology - Exam - Constitutional Vitals: Temp Pulse Resp BP Pulse Ox 97.9 F 79 16 116/73 86 11/18/17 07:48 11/18/17 07:48 11/18/17 07:48 11/18/17 07:48 11/18/17 07:48 General appearance: no acute distress - Head Head exam: Present: atraumatic, normal inspection - Eye Eye exam: Present: sclera anicteric - ENT ENT exam: Present: mucous membranes moist - Respiratory Respiratory exam: Present: CTAB - Cardiovascular Cardiovascular exam: Present: +S1, +S2 - GI/Abdominal GI/Abdominal exam: Present: normal bowel sounds, soft - Extremities Exam Extremities exam: Present: normal inspection, pedal edema - Neurological Exam Neurological exam: Present: alert, oriented X3, no focal deficits - Psychiatric Psychiatric exam: Present: normal affect - Skin Skin exam: Present: normal color, warm Oncology - Results Labs: 3 11/18/17 11/18/17 11/17/17 05:45 05:45 23:03 WBC 3.7 L 3.7 L RBC 4.02 4.23 Hgb 8.2 L 8.6 L Hct 30.1 L 31.6 L MCV 74.9 L 74.7 L MCH 20.4 L 20.3 L MCHC 27.2 L 27.2 L RDW 23.8 H 23.9 H Plt Count 318 324 MPV TNP Immature Gran % 9.3 H Seg Neutrophils % 44.0 37.5 Band Neutrophils % 2.0 Lymphocytes % 32.0 27.7 Monocytes % 20.0 22.5 Eosinophils % 2.0 2.7 Basophils % 0.3 Neutrophils # 1.7 1.4 L Lymphocytes # 1.2 1.0 Monocytes # 0.7 0.8 Eosinophils # 0.1 0.1 Basophils # 0.0 Nucleated RBCs/100 WBC 0.5 H 0.8 H Platelet Estimate Normal Normal Large Platelets Present A Immature Plt Fraction Polychromasia 1+ A Hypochromasia Present A Present A Poikilocytosis 2+ A Anisocytosis 2+ A 2+ A Macrocytosis Present A Ovalocytes 1+ A Betty Cells 1+ A Sodium 136 Potassium 3.7 Chloride 108 H Carbon Dioxide 18 L BUN 22 Creatinine 1.17 Est GFR ( Amer) 55 L Est GFR (Non-Af Amer) 46 L BUN/Creatinine Ratio 19 Glucose 105 POC Glucose Calculated Osmolality 286 Calcium 8.2 L Phosphorus Magnesium Iron % Saturation Transferrin Ferritin Total Bilirubin 0.9 Direct Bilirubin AST 18 ALT 7 Alkaline Phosphatase 158 H Lactate Dehydrogenase Creatine Kinase Troponin I Serum Total Protein 6.2 L Albumin 3.0 L Globulin 3.2 Albumin/Globulin Ratio 0.9 L Triglycerides 144 Cholesterol 71 LDL Cholesterol, Calc 30 VLDL Cholesterol, Calc 29 HDL Cholesterol 12 L Cholesterol/HDL Ratio 5.9 H Vitamin B12 Folate Urine Color Urine Clarity Urine pH Ur Specific [place] Urine Protein Urine Glucose (UA) Urine Ketones Urine Blood Urine Nitrite Urine Bilirubin Urine Urobilinogen Ur Leukocyte Esterase Urine Microscopic RBC Urine Microscopic WBC Ur Eosinophil Smear Ur Squamous Epith Cells Urine Bacteria Hyaline Casts Ur Culture Indicated? Blood Type Antibody Screen 3 11/17/17 11/17/17 11/17/17 23:03 17:35 16:26 WBC RBC Hgb Hct MCV MCH MCHC RDW Plt Count MPV Immature Gran % Seg Neutrophils % Band Neutrophils % Lymphocytes % Monocytes % Eosinophils % Basophils % Neutrophils # Lymphocytes # Monocytes # Eosinophils # Basophils # Nucleated RBCs/100 WBC Platelet Estimate Large Platelets Immature Plt Fraction Polychromasia Hypochromasia Poikilocytosis Anisocytosis Macrocytosis Ovalocytes [place] Cells Sodium Potassium Chloride Carbon Dioxide BUN Creatinine Est GFR ( Amer) Est GFR (Non-Af Amer) BUN/Creatinine Ratio Glucose POC Glucose 108 H Calculated Osmolality Calcium Phosphorus Magnesium Iron % Saturation Transferrin Ferritin Total Bilirubin Direct Bilirubin 0.4 H AST ALT Alkaline Phosphatase Lactate Dehydrogenase Creatine Kinase Troponin I 0.03 Serum Total Protein Albumin Globulin Albumin/Globulin Ratio Triglycerides Cholesterol LDL Cholesterol, Calc VLDL Cholesterol, Calc HDL Cholesterol Cholesterol/HDL Ratio Vitamin B12 Folate Urine Color Urine Clarity Urine pH Ur Specific [place] Urine Protein Urine Glucose (UA) Urine Ketones Urine Blood Urine Nitrite Urine Bilirubin Urine Urobilinogen Ur Leukocyte Esterase Urine Microscopic RBC Urine Microscopic WBC Ur Eosinophil Smear Ur Squamous Epith Cells Urine Bacteria Hyaline Casts Ur Culture Indicated? Blood Type Antibody Screen 3 11/17/17 11/17/17 11/17/17 16:26 16:26 16:26 WBC 3.7 L RBC 3.91 Hgb 7.9 L Hct 29.0 L MCV 74.2 L MCH 20.2 L MCHC 27.2 L RDW 23.5 H Plt Count 354 MPV 11.3 Immature Gran % Seg Neutrophils % Band Neutrophils % Lymphocytes % Monocytes % Eosinophils % Basophils % Neutrophils # Lymphocytes # Monocytes # Eosinophils # Basophils # Nucleated RBCs/100 WBC Platelet Estimate Large Platelets Immature Plt Fraction 11.9 H Polychromasia Hypochromasia Poikilocytosis Anisocytosis Macrocytosis Ovalocytes Betty Cells Sodium Potassium Chloride Carbon Dioxide BUN Creatinine Est GFR ( Amer) Est GFR (Non-Af Amer) BUN/Creatinine Ratio Glucose POC Glucose Calculated Osmolality Calcium Phosphorus Magnesium Iron % Saturation Transferrin Ferritin Total Bilirubin Direct Bilirubin AST ALT Alkaline Phosphatase Lactate Dehydrogenase Creatine Kinase 36 Troponin I 0.04 H* Serum Total Protein Albumin Globulin Albumin/Globulin Ratio Triglycerides Cholesterol LDL Cholesterol, Calc VLDL Cholesterol, Calc HDL Cholesterol Cholesterol/HDL Ratio Vitamin B12 Folate Urine Color Urine Clarity Urine pH Ur Specific [place] Urine Protein Urine Glucose (UA) Urine Ketones Urine Blood Urine Nitrite Urine Bilirubin Urine Urobilinogen Ur Leukocyte Esterase Urine Microscopic RBC Urine Microscopic WBC Ur Eosinophil Smear Ur Squamous Epith Cells Urine Bacteria Hyaline Casts Ur Culture Indicated? Blood Type Antibody Screen 3 11/17/17 11/17/17 11/17/17 15:15 15:15 14:16 WBC RBC Hgb Hct MCV MCH MCHC RDW Plt Count MPV Immature Gran % Seg Neutrophils % Band Neutrophils % Lymphocytes % Monocytes % Eosinophils % Basophils % Neutrophils # Lymphocytes # Monocytes # Eosinophils # Basophils # Nucleated RBCs/100 WBC Platelet Estimate Large Platelets Immature Plt Fraction Polychromasia Hypochromasia Poikilocytosis Anisocytosis Macrocytosis Ovalocytes [place] Cells Sodium Potassium Chloride Carbon Dioxide BUN Creatinine Est GFR ( Amer) Est GFR (Non-Af Amer) BUN/Creatinine Ratio Glucose POC Glucose Calculated Osmolality Calcium Phosphorus Magnesium Iron % Saturation Transferrin Ferritin Total Bilirubin Direct Bilirubin AST ALT Alkaline Phosphatase Lactate Dehydrogenase Creatine Kinase Troponin I Serum Total Protein Albumin Globulin Albumin/Globulin Ratio Triglycerides Cholesterol LDL Cholesterol, Calc VLDL Cholesterol, Calc HDL Cholesterol Cholesterol/HDL Ratio Vitamin B12 Folate Urine Color Yellow Urine Clarity Clear Urine pH 5.0 Ur Specific [place] 1.026 H Urine Protein Negative Urine Glucose (UA) Normal Urine Ketones Trace H Urine Blood Negative Urine Nitrite Negative Urine Bilirubin Moderate H Urine Urobilinogen Normal Ur Leukocyte Esterase Small H Urine Microscopic RBC 3-5 H Urine Microscopic WBC 3-5 H Ur Eosinophil Smear 0 Ur Squamous Epith Cells Many H Urine Bacteria None Seen Hyaline Casts Few Ur Culture Indicated? NO. A Blood Type AB POSITIVE Antibody Screen NEGATIVE 3 11/17/17 11/17/17 11/17/17 14:16 14:16 14:16 WBC RBC Hgb Hct MCV MCH MCHC RDW Plt Count MPV Immature Gran % Seg Neutrophils % Band Neutrophils % Lymphocytes % Monocytes % Eosinophils % Basophils % Neutrophils # Lymphocytes # Monocytes # Eosinophils # Basophils # Nucleated RBCs/100 WBC Platelet Estimate Large Platelets Immature Plt Fraction Polychromasia Hypochromasia Poikilocytosis Anisocytosis Macrocytosis Ovalocytes [place] Cells Sodium Potassium Chloride Carbon Dioxide BUN Creatinine Est GFR ( Amer) Est GFR (Non-Af Amer) BUN/Creatinine Ratio Glucose POC Glucose Calculated Osmolality Calcium Phosphorus 3.8 Magnesium 1.8 Iron 13 L % Saturation 4 L Transferrin 237 Ferritin 51 Total Bilirubin Direct Bilirubin AST ALT Alkaline Phosphatase Lactate Dehydrogenase 497 H Creatine Kinase Troponin I Serum Total Protein Albumin Globulin Albumin/Globulin Ratio Triglycerides Cholesterol LDL Cholesterol, Calc VLDL Cholesterol, Calc HDL Cholesterol Cholesterol/HDL Ratio Vitamin B12 613 Folate 12.2 Urine Color Urine Clarity Urine pH Ur Specific [place] Urine Protein Urine Glucose (UA) Urine Ketones Urine Blood Urine Nitrite Urine Bilirubin Urine Urobilinogen Ur Leukocyte Esterase Urine Microscopic RBC Urine Microscopic WBC Ur Eosinophil Smear Ur Squamous Epith Cells Urine Bacteria Hyaline Casts Ur Culture Indicated? Blood Type Antibody Screen Consult Discharge Plan - Plan Referrals: Silver Díaz MD [Primary Care Provider] -
[2017-11-18] MEDS ORDERED: *HR* LORazepam 0.5 MG TABLET PO PRN (14:09)
--- NOTE | 2017-11-18 14:18 | Internal Med Progress Note ---
<Dario Laurent - Last Filed: 11/18/17 16:11> Date of Encounter: 11/18/17 Time of Encounter: 15:58 - Assessment and plan (1) Anemia Current Visit: Yes Status: Acute Assessment and plan: appreciate heme/onc consult Likely secondary to myelosupression from hydroxyurea Cont to hold hydroxyurea H&H stable at 8.2 and 30.1 today, slight decrease likely dilutional from IVF Iron studies revealed iron deficiency start 325mg Ferrous sulfate BID Qualifiers: Anemia type: iron deficiency Iron deficiency anemia type: inadequate dietary iron intake Qualified Code(s): D50.8 - Other iron deficiency anemias (2) Weakness Current Visit: Yes Status: Acute Assessment and plan: generalized weakness and fatigue which has improved since admission Likely secondary to anemia and dehydration fall precautions PT/OT Pt requested home Gabapentin for restless leg and neuropathy, in light of weakness initiated low dose relative for pt at 300mg TID (3) Polycythemia vera Current Visit: No Status: Chronic Assessment and plan: Hgb 8.2 today, anemic Appreciate heme/onc recs Continue holding hydroxyurea - likely caused myelosuppression (4) VTE (venous thromboembolism) Current Visit: No Status: Acute Assessment and plan: Eliquis 2.5 BID (5) JULEE (acute kidney injury) Current Visit: Yes Status: Acute Assessment and plan: was recently treated for UTI with ABx (Pt unsure of name) UA has trace LE, still symptomatic Likely caused by hypoperfusion from dehydration Has received 1L IVF BUN and Cr improved today at 22 and 1.17 respectively Cont IVF Continue to monitor (6) Elevated troponin Current Visit: Yes Status: Acute Assessment and plan: Serial trops adynamic possibly secondary to dehydration and demand ischemia Denies chest pain or extremity swelling (7) Elevated TSH Current Visit: Yes Status: Acute Assessment and plan: possibly early hypothyroid T4 normal at 1.21 (8) DVT prophylaxis Current Visit: Yes Status: Acute Assessment and plan: Eliquis as above (9) UTI (urinary tract infection) Current Visit: Yes Status: Acute Assessment and plan: recently treated as OP still symptomatic UA with LE positive but large amount of squamous cell Cont ceftriaxone Qualifiers: Urinary tract infection type: acute cystitis Hematuria presence: without hematuria Qualified Code(s): N30.00 - Acute cystitis without hematuria - Time Spent With Patient Total time spent is greater than 50% in coordination of care (as documented) at patient's floor/unit and/or counseling patient: - Subjective Interval history: Ms. Stoddard is a 72F who was admitted for generalized weakness. Pt has known hx of polycythemia vera on hydroxyurea and multiple throboembolisms on eliquis. Admits to 1 fall in which she struck her arm. No LOC or vision loss. Pt also complaining of dysuria and suprapubic pain which started approximately 10 days ago and was treated with an unknown course of abx which pt reports she completed. No acute events overnight. Pt complaining of anxiety and leg pain. Pt takes Gabapentin at home for restless leg syndrome. States she feels some improvement in her overall weakness. Still is experiencing suprapubic pain. Denies any headache, fever, chills, chest pain, SOB, nausea, or vomiting. - Constitutional Vitals: Temp Pulse Resp BP Pulse Ox 97.6 F 84 16 115/71 96 11/18/17 10:53 11/18/17 10:53 11/18/17 10:53 11/18/17 10:53 11/18/17 10:53 General appearance: Present: A&O X 3, no acute distress, answers questions appropriately Exam: Head: normocephalic and atraumatic Eyes: PERRL, EOMI, sclera anicteric, conjunctiva pink Neck: supple, trachea midline Lungs: CTA bilaterally. no wheezes, rales, or rhonchi. non-labored breathing Heart: RRR +3 systolic murmur. No clicks or rubs GI: abdomen soft, non-tender, non-distended. normoactive bowel sounds Extremities: warm, radial pulses palpable and symmetrical Neuro: A&Ox3. no focal deficits. no speech abnormality or difficulty Skin: warm, dry, intact Internal Medicine: Result - Labs CBC & Chem 7: 11/18/17 05:45 11/18/17 05:45 Labs: Short CBC 11/17/17 11/17/17 11/18/17 Range/Units 16:26 23:03 05:45 WBC 3.7 L 3.7 L 3.7 L (4.3-11.1) K/mcL Hgb 7.9 L 8.6 L 8.2 L (11.5-15.4) g/dL Hct 29.0 L 31.6 L 30.1 L (35.3-44.9) % Plt Count 354 324 318 (140-400) K/mcL Neutrophils # 1.4 L 1.7 (1.6-8.9) K/mcL BMP 11/18/17 05:45 Sodium 136 Potassium 3.7 Chloride 108 H Carbon Dioxide 18 L BUN 22 Creatinine 1.17 Glucose 105 Calcium 8.2 L Cardiac Enzymes 11/17/17 11/17/17 Range/Units 16:26 23:03 Troponin I 0.04 H* 0.03 (< 0.04) ng/mL Liver Function 11/17/17 11/18/17 Range/Units 16:26 05:45 Total Bilirubin 0.9 (0.3-1.0) mg/dL Direct Bilirubin 0.4 H (0.0-0.2) mg/dL AST 18 (13-39) Units/L ALT 7 (7-52) Units/L Alkaline Phosphatase 158 H (34-104) Units/L Albumin 3.0 L (3.5-5.7) g/dL Urine 11/17/17 Range/Units 15:15 Urine Color Yellow (Yellow) Urine Clarity Clear (Clear) Urine pH 5.0 (5.0-8.0) pH Units Ur Specific [place] 1.026 H (1.010-1.025) Urine Protein Negative (Neg-Trace) mg/dL Urine Glucose (UA) Normal (Normal) mg/dL - ABG Interpretation ABG results: PT/INR, D-dimer PT 15.8 Seconds (9.4-12.1) H 11/17/17 11:24 - Impressions Impressions Retroperitoneum Ultrasound 11/17/17 13:46 IMPRESSION: No hydronephrosis. Normal renal echogenicity. Incidental note is made of cholelithiasis with a small amount of pericholecystic fluid. Correlate for possibility of acute cholecystitis. D/ / 11/17/2017 15:42:41 Hiram Baugh MD / [email or web address] Interpreting Provider: Hiram Baugh MD Consult Discharge Plan - Plan Referrals: Silver Díaz MD [Primary Care Provider] - <NidaOmero higuera - Last Filed: 11/18/17 17:42> Date of Encounter: 11/18/17 - Assessment and plan (1) Polycythemia vera Current Visit: No Status: Chronic (2) VTE (venous thromboembolism) Current Visit: No Status: Acute (3) JULEE (acute kidney injury) Current Visit: Yes Status: Acute (4) Elevated troponin Current Visit: Yes Status: Acute (5) Elevated TSH Current Visit: Yes Status: Acute (6) Weakness Current Visit: Yes Status: Acute (7) DVT prophylaxis Current Visit: Yes Status: Acute (8) Anemia Current Visit: Yes Status: Acute Qualifiers: Anemia type: iron deficiency Iron deficiency anemia type: inadequate dietary iron intake Qualified Code(s): D50.8 - Other iron deficiency anemias (9) UTI (urinary tract infection) Current Visit: Yes Status: Acute Qualifiers: Urinary tract infection type: acute cystitis Hematuria presence: without hematuria Qualified Code(s): N30.00 - Acute cystitis without hematuria - Time Spent With Patient Total time spent is greater than 50% in coordination of care (as documented) at patient's floor/unit and/or counseling patient: - Constitutional Vitals: Temp Pulse Resp BP Pulse Ox 97.7 F 86 16 136/74 97 11/18/17 15:01 11/18/17 15:01 11/18/17 15:01 11/18/17 15:01 11/18/17 15:01 Internal Medicine: Result - Labs CBC & Chem 7: 11/18/17 05:45 11/18/17 05:45 Labs: Short CBC 11/17/17 11/18/17 Range/Units 23:03 05:45 WBC 3.7 L 3.7 L (4.3-11.1) K/mcL Hgb 8.6 L 8.2 L (11.5-15.4) g/dL Hct 31.6 L 30.1 L (35.3-44.9) % Plt Count 324 318 (140-400) K/mcL Neutrophils # 1.4 L 1.7 (1.6-8.9) K/mcL BMP 11/18/17 05:45 Sodium 136 Potassium 3.7 Chloride 108 H Carbon Dioxide 18 L BUN 22 Creatinine 1.17 Glucose 105 Calcium 8.2 L Cardiac Enzymes 11/17/17 11/17/17 Range/Units 16:26 23:03 Troponin I 0.04 H* 0.03 (< 0.04) ng/mL Liver Function 11/17/17 11/18/17 Range/Units 16:26 05:45 Total Bilirubin 0.9 (0.3-1.0) mg/dL Direct Bilirubin 0.4 H (0.0-0.2) mg/dL AST 18 (13-39) Units/L ALT 7 (7-52) Units/L Alkaline Phosphatase 158 H (34-104) Units/L Albumin 3.0 L (3.5-5.7) g/dL - ABG Interpretation ABG results: PT/INR, D-dimer PT 15.8 Seconds (9.4-12.1) H 11/17/17 11:24 - Attending Attestation I examined this patient and my medical decision-making was reviewed with the Resident Physician Dr. Laurent. I agree with the documented findings, disposition and treatment plan as described except to the extent set forth below. Ms. Stoddard is a 72 year old female history of polycythemia vera on hydroxyurea and multiple thromboembolisms on eliquis presented to the ED with complaint of generalized weakness. she does report loss of appetite in addition to the generalized weakness and fatigue but denies any significant weight loss. She denied any CP / SOB. Gen: A, A, O x 3 Chest: Diminished BS b/l, no crackles, rales Heart : S1S2+ RRR a/p 1. JULEE due to dehydration Improving cont IVF 2. Acute anemia due to chronic disease as well as med side hydroxyurea Held hydroxyurea transfuse PRBC as needed 3. Elevated Troponin due to demand ischemia as well as JULEE No further work needed 4. Acute UTI on Rocephin
[2017-11-18] MEDS: *HR* LORazepam 0.5 MG TABLET PO PRN (17:59)
[2017-11-18] MEDS: cefTRIAXone 2,000 MG in Water for inj. (sterile) 20 ML 20 ML IVP SCH (18:00)
[2017-11-18] MEDS: Gabapentin 300 MG CAPSULE PO SCH ×2 (20:18)
[2017-11-19 01:45] LABS: Mean Platelet Volume 11.6 fL (9.4-12.4); Nucleated Red Blood Cells 0.6 /100 WBC (0)
[2017-11-19 01:46] LABS: Hematocrit 27.6 % (35.3-44.9); Hemoglobin 7.4 g/dL (11.5-15.4); Mean Corpuscular HGB Conc 26.8 g/dL (31.6-35.5); Mean Corpuscular Volume 74.6 fL (83.0-100.0); Platelet Count 308 K/mcL (140-400); Red Cell Distribution Width 23.9 % (11.5-14.5)
[2017-11-19 02:01] LABS: Alanine Aminotransferase 8 Units/L (7-52); Albumin 2.8 g/dL (3.5-5.7); Albumin/Globulin Ratio 0.9 (1.1-2.2); Alkaline Phosphatase 168 Units/L (34-104); Aspartate Amino Transferase 20 Units/L (13-39); BUN/Creatinine Ratio 18 (6-26); Bilirubin,Total 0.6 mg/dL (0.3-1.0); Blood Urea Nitrogen 14 mg/dL (8-23); Calcium 8.1 mg/dL (8.6-10.3); Carbon Dioxide 19 mEq/L (23-29); Chloride 108 mEq/L (98-107); Globulin 3.2 g/dL (2.4-3.5); Glucose 106 mg/dL (70-105); Osmolality,Calculated 283 (280-300); Potassium 3.5 mEq/L (3.5-5.1); Sodium 136 mEq/L (136-145); eGFR For Non-African Americans > 60 (> 60)
[2017-11-19 02:29] LABS: Anisocytosis 2+ (Not Present); Band Neutrophils % 3.3 % (0-4); Large Platelets Present (Not Present); Lymphocytes # 0.6 K/mcL (0.6-4.6); Lymphocytes % 16.7 %; Monocytes # 0.6 K/mcL (0.0-1.3); Monocytes % 16.7 %; Neutrophils # 2.3 K/mcL (1.6-8.9); Platelet Estimate Normal (Normal); Segmented Neutrophils % 63.3 %
[2017-11-19 02:30] LABS: Macrocytosis Present (Not Present); Polychromasia 1+ (Not Present)
[2017-11-19 02:31] LABS: Poikilocytosis 1+ (Not Present)
[2017-11-19] MEDS: 0.9 % Sodium Chloride 1,000 ML IVC SCH ×3 (02:53→16:29)
[2017-11-19] MEDS: Aspirin Enteric Coated 81 MG Tablet PO SCH (08:57)
[2017-11-19] MEDS: Loratadine 10 MG TABLET PO SCH (08:57)
[2017-11-19] MEDS: Gabapentin 300 MG CAPSULE PO SCH ×4 (08:57→21:09)
[2017-11-19] MEDS: Famotidine 20 MG TABLET PO SCH ×2 (08:57→21:08)
[2017-11-19] MEDS: Apixaban 2.5 MG TABLET PO SCH (08:58)
[2017-11-19 10:46] LABS: Immature Reticulocyte % 33.8 % (11.0-38.0); Retculocyte # 0.09 M/mcL (0.05-0.10); Reticulocyte % 2.5 % (1.6-2.8)
--- NOTE | 2017-11-19 13:01 | Oncology Inp Progress Note ---
<Karan Salazar - Last Filed: 11/19/17 12:59> Date of Encounter: 11/19/17 Time of Encounter: 12:59 (1) Polycythemia vera Current Visit: Yes Status: Chronic Assessment and plan: Patients WBC, RBC, HGb and HCT and platelet counts all decreased from yesterday she is on 125cc normal saline an hour which is likely contributing to this dilution. Currently holding hydroxyurea and continuing iron supplementation (2) UTI (urinary tract infection) Current Visit: Yes Status: Acute Assessment and plan: Patient was treated with ciprofloxacin outpatient for UTI: urine culture from was grossly contaminated Patient was febrile midnight yesterday (101.3) currently on ceftriaxone may want to repeat urine culture, blood culture. Qualifiers: Urinary tract infection type: acute cystitis Hematuria presence: without hematuria Qualified Code(s): N30.00 - Acute cystitis without hematuria Oncology: Subj Interval history: Patient reports no acute events overnight. She has started to have diarrhea this morning. Reports her stool is black. She is on iron supplementation. Denies BRB per rectum. She reports she has not had a good appetite for the last few weeks and according to family has gone one week without eating anything. She also reports sob this morning. - Constitutional Vitals: Vital Signs Temp Pulse Resp BP Pulse Ox 11/19/17 11:10 98.5 F 81 13 128/74 98 11/19/17 07:11 98.6 F 75 15 122/77 92 11/19/17 04:53 97.9 F 80 20 130/74 96 11/19/17 01:34 99.0 F 11/18/17 23:52 101.3 F H 90 15 131/83 93 11/18/17 19:14 99.4 F 88 14 117/68 99 11/18/17 15:01 97.7 F 86 16 136/74 97 Intake and Output 11/18/17 11/19/17 11/19/17 23:59 07:59 15:59 Intake Total 220 / 220 1000 / 1000 1120 / 1120 Output Total 300 / 300 450 / 450 100 / 100 Balance -80 / -80 550 / 550 1020 / 1020 Intake: IV Fluids 20 / 20 1000 / 1000 1000 / 1000 0.9 % Sodium Chloride 1,000 ML 1000 / 1000 1000 / 1000 @ 125 mls/hr IVC .Q8H [facility] Rx#: [id number] Rocephin 2,000 MG In Water for 20 / 20 inj. (sterile) 20 ML @ 600 mls/ hr IVP Q24H [facility] Rx#:[id number] Oral 200 / 200 0 / 0 120 / 120 Output: Urine 300 / 300 450 / 450 100 / 100 Other: Meal Dinner Breakfast Percent of Meal Consumed 0% 0% Stool Size Moderate Stool Consistency loose soft Stool Color Brown Yellow # Voids 2 # Bowel Movements 0 0 Weight 76 kg Blood Glucose* 97 90 General appearance: average body habitus, mild distress - Neck Neck exam: Absent: lymphadenopathy - Respiratory Respiratory exam: Present: decreased breath sounds, rales (b/l ) - Cardiovascular Cardiovascular exam: Present: RRR. Absent: JVD - GI/Abdominal GI/Abdominal exam: Present: normal bowel sounds, soft. Absent: distended - Extremities Exam Extremities exam: Present: normal capillary refill, pedal edema (mild ). Absent : tenderness - Psychiatric Psychiatric exam: Present: normal affect, normal mood - Skin Skin exam: Present: intact, warm Oncology: Obj Data - Labs CBC & Chem 7: 11/19/17 00:55 11/19/17 00:55 Labs: Laboratory Results - last 24 hr 11/17/17 11/18/17 11/18/17 20:32 07:52 14:27 WBC RBC Hgb Hct MCV MCH MCHC RDW Plt Count MPV Reticulocyte # Seg Neutrophils % Band Neutrophils % Lymphocytes % Monocytes % Neutrophils # Lymphocytes # Monocytes # Nucleated RBCs/100 WBC Platelet Estimate Large Platelets Polychromasia Poikilocytosis Anisocytosis Macrocytosis Percent Retic Immature Retic Fraction Retic Hgb Equivalent Sodium Potassium Chloride Carbon Dioxide BUN Creatinine Est GFR ( Amer) Est GFR (Non-Af Amer) BUN/Creatinine Ratio Glucose POC Glucose 80 89 Calculated Osmolality Calcium Total Bilirubin AST ALT Alkaline Phosphatase Serum Total Protein Albumin Globulin Albumin/Globulin Ratio Stool Occult Blood Negative 11/18/17 11/19/17 11/19/17 16:27 00:55 00:55 WBC 3.5 L RBC 3.70 L Hgb 7.4 L Hct 27.6 L MCV 74.6 L MCH 20.0 L MCHC 26.8 L RDW 23.9 H Plt Count 308 MPV 11.6 Reticulocyte # 0.09 Seg Neutrophils % 63.3 Band Neutrophils % 3.3 Lymphocytes % 16.7 Monocytes % 16.7 Neutrophils # 2.3 Lymphocytes # 0.6 Monocytes # 0.6 Nucleated RBCs/100 WBC 0.6 H Platelet Estimate Normal Large Platelets Present A Polychromasia 1+ A Poikilocytosis 1+ A Anisocytosis 2+ A Macrocytosis Present A Percent Retic 2.5 Immature Retic Fraction 33.8 Retic Hgb Equivalent 23.7 L Sodium 136 Potassium 3.5 Chloride 108 H Carbon Dioxide 19 L BUN 14 Creatinine 0.76 Est GFR ( Amer) > 60 Est GFR (Non-Af Amer) > 60 BUN/Creatinine Ratio 18 Glucose 106 H POC Glucose 97 Calculated Osmolality 283 Calcium 8.1 L Total Bilirubin 0.6 AST 20 ALT 8 Alkaline Phosphatase 168 H Serum Total Protein 6.0 L Albumin 2.8 L Globulin 3.2 Albumin/Globulin Ratio 0.9 L Stool Occult Blood 11/19/17 07:34 WBC RBC Hgb Hct MCV MCH MCHC RDW Plt Count MPV Reticulocyte # Seg Neutrophils % Band Neutrophils % Lymphocytes % Monocytes % Neutrophils # Lymphocytes # Monocytes # Nucleated RBCs/100 WBC Platelet Estimate Large Platelets Polychromasia Poikilocytosis Anisocytosis Macrocytosis Percent Retic Immature Retic Fraction Retic Hgb Equivalent Sodium Potassium Chloride Carbon Dioxide BUN Creatinine Est GFR ( Amer) Est GFR (Non-Af Amer) BUN/Creatinine Ratio Glucose POC Glucose 90 Calculated Osmolality Calcium Total Bilirubin AST ALT Alkaline Phosphatase Serum Total Protein Albumin Globulin Albumin/Globulin Ratio Stool Occult Blood - ABG Interpretation ABG results: PT/INR, D-dimer PT 15.8 Seconds (9.4-12.1) H 11/17/17 11:24 Consult Discharge Plan - Plan Referrals: Silver Díza MD [Primary Care Provider] - <Paige Green - Last Filed: 11/20/17 08:23> Date of Encounter: 11/20/17 (1) Polycythemia vera Current Visit: Yes Status: Chronic Oncology: Subj Interval history: Po iron supplementation. LAbs look improved. Hold hydrea. I examined this patient and my medical decision-making was reviewed with Karan Reynolds. I agree with the documented findings, disposition and treatment plan as described except to the extent set forth below. - Constitutional Vitals: Vital Signs Temp Pulse Resp BP Pulse Ox 11/20/17 08:04 96 11/20/17 08:00 99.0 F 84 16 139/85 96 11/20/17 04:15 99.7 F H 87 19 128/72 93 11/19/17 23:30 98.8 F 76 16 137/68 95 11/19/17 19:25 98.2 F 76 15 108/64 96 11/19/17 15:50 98.8 F 87 16 146/77 96 11/19/17 11:10 98.5 F 81 13 128/74 98 Intake and Output 11/19/17 11/20/17 11/20/17 23:59 07:59 15:59 Intake Total 1380 / 1380 0 / 0 Output Total 100 / 100 400 / 400 Balance 1280 / 1280 -400 / -400 Intake: IV Fluids 1020 / 1020 Rocephin 2,000 MG In Water for 20 / 20 inj. (sterile) 20 ML @ 600 mls/ hr IVP Q24H [facility] Rx#:[id number] Oral 360 / 360 0 / 0 Output: Urine 100 / 100 400 / 400 Other: Meal Dinner Percent of Meal Consumed 10% Weight 76.4 kg Blood Glucose* 96 Patient Weight 11/20/17 23:59 Weight 76.4 kg Oncology: Obj Data - Labs CBC & Chem 7: 11/20/17 05:10 11/20/17 05:10 Labs: Laboratory Results - last 24 hr 11/18/17 11/19/17 11/19/17 20:16 00:55 07:34 WBC 3.5 L RBC 3.70 L Hgb 7.4 L Hct 27.6 L MCV 74.6 L MCH 20.0 L MCHC 26.8 L RDW 23.9 H Plt Count 308 MPV 11.6 Reticulocyte # 0.09 Seg Neutrophils % 63.3 Band Neutrophils % 3.3 Lymphocytes % 16.7 Monocytes % 16.7 Eosinophils % Neutrophils # 2.3 Lymphocytes # 0.6 Monocytes # 0.6 Eosinophils # Nucleated RBCs/100 WBC 0.6 H Platelet Estimate Normal Large Platelets Present A Polychromasia 1+ A Hypochromasia Poikilocytosis 1+ A Anisocytosis 2+ A Microcytosis Macrocytosis Present A Percent Retic 2.5 Immature Retic Fraction 33.8 Retic Hgb Equivalent 23.7 L Sodium Potassium Chloride Carbon Dioxide BUN Creatinine Est GFR ( Amer) Est GFR (Non-Af Amer) BUN/Creatinine Ratio Glucose POC Glucose 97 90 Calculated Osmolality Calcium Stl C. diff Tox B Gene 11/19/17 11/19/17 11/19/17 12:59 15:50 16:22 WBC RBC Hgb 8.2 L Hct 29.3 L MCV MCH MCHC RDW Plt Count MPV Reticulocyte # Seg Neutrophils % Band Neutrophils % Lymphocytes % Monocytes % Eosinophils % Neutrophils # Lymphocytes # Monocytes # Eosinophils # Nucleated RBCs/100 WBC Platelet Estimate Large Platelets Polychromasia Hypochromasia Poikilocytosis Anisocytosis Microcytosis Macrocytosis Percent Retic Immature Retic Fraction Retic Hgb Equivalent Sodium Potassium Chloride Carbon Dioxide BUN Creatinine Est GFR ( Amer) Est GFR (Non-Af Amer) BUN/Creatinine Ratio Glucose POC Glucose 94 Calculated Osmolality Calcium Stl C. diff Tox B Gene Negative 11/20/17 11/20/17 11/20/17 05:10 05:10 05:22 WBC 3.3 L RBC 3.91 Hgb 8.0 L Hct 29.1 L MCV 74.4 L MCH 20.5 L MCHC 27.5 L RDW 24.1 H Plt Count 308 MPV 11.2 Reticulocyte # Seg Neutrophils % 52.0 Band Neutrophils % 4.0 Lymphocytes % 26.0 Monocytes % 12.0 Eosinophils % 6.0 Neutrophils # 1.9 Lymphocytes # 0.9 Monocytes # 0.4 Eosinophils # 0.2 Nucleated RBCs/100 WBC Platelet Estimate Normal Large Platelets Present A Polychromasia 2+ A Hypochromasia Present A Poikilocytosis Anisocytosis 3+ A Microcytosis Present A Macrocytosis Percent Retic Immature Retic Fraction Retic Hgb Equivalent Sodium 140 Potassium 3.6 Chloride 112 H Carbon Dioxide 17 L BUN 8 Creatinine 0.70 Est GFR ( Amer) > 60 Est GFR (Non-Af Amer) > 60 BUN/Creatinine Ratio 11 Glucose 99 POC Glucose 96 Calculated Osmolality 288 Calcium 8.3 L Stl C. diff Tox B Gene - Impressions Impressions Chest X-Ray 11/19/17 15:27 IMPRESSION: Subtle findings described above concerning for new airspace disease or atelectasis. This is best appreciated on lateral view and could be within the right middle lobe or lingula. Recommend two-view follow-up chest x-ray after treatment to ensure resolution. D/ / Walt Maciel MD / Walt Maciel MD Interpreting Provider: Walt Maciel MD - ABG Interpretation ABG results: PT/INR, D-dimer PT 15.8 Seconds (9.4-12.1) H 11/17/17 11:24
--- NOTE | 2017-11-19 14:56 | Internal Med Progress Note ---
<Amita Hough P - Last Filed: 11/19/17 17:54> Hospitalist Progress Note - Encounter Date of Encounter: 11/19/17 Time of Encounter: 09:30 - Subjective Interval History: This 72 years old female admitted here for generalized weakness and she was case of Polycythemia Vera on Hydroxyurea and multiple thomboembolism on Eliquis. She denies any significant weight loss . She is under evaluation of Painting Technician for pancytopenia ? due to hydroxyurea .This patient developed diarrhoea since yesterday, she has had 2 bowel movements this morning, stool was black , but no blood. She is on Iron therapy. She denies any mucous, fresh blood in her stool. She has had mild abdominal cramps and bloating . She has recorded temperature 101.3 F . She denies fever, vomiting, nausea, abdominal distension. She also denies any cough , SOB, chest pain or tightness.She has planned for Chest Xray to r/o pneumonia or any focus of infection. She has planned for stool test for CDF today She has put on NPO from today's mid night incase she needs GI scope . - Exam Vitals: Temp Pulse Resp BP Pulse Ox 98.5 F 81 13 128/74 98 11/19/17 11:10 11/19/17 11:10 11/19/17 11:10 11/19/17 11:10 11/19/17 11:10 Exam: She looks anxious because of diarrhoea. Not in acute distress Neurology : well orientated with Time place and person , HMF grossly normal . Abdomen: Soft , minimally distended, no rigidity and tenderness , BS +, no organomegaly CVS : S1 S2 normal , no murmur. Chest: Normal chest expansion , minimal rales noted and no wheezes Extremities: No oedema, calf swelling Skin: normal finding - Assessment and Plan (1) Diarrhea Current Visit: Yes Status: Acute Assessment and Plan: Started on Iv fluid and stool for CDF (2) Fever Current Visit: Yes Status: Acute Assessment and Plan: Recorded Temperature 101 F in 24 hours . Ordered Chest Xray to r/o pneumonia or focus of sepsis. (3) Anemia Current Visit: Yes Status: Acute Assessment and Plan: It might be due to Mylosupression with hydroxyurea and Iron deficiency . Opinion from Painting Technician and Iron therapy started for her anaemia . Holding on hydroxyurea (4) Weakness Current Visit: Yes Status: Acute Assessment and Plan: Generalized weakness and fatigability Might be due to anaemia and dehydration and diarrhoea. She is on I/v Fluids (5) Cystitis Current Visit: Yes Status: Acute Assessment and Plan: Cystitis She is on Ceftriaxone (6) DVT prophylaxis Current Visit: Yes Status: Acute Assessment and Plan: On Eliquis - Time Spent with Patient Total time spent is greater than 50% in coordination of care (as documented) at patient's floor/unit and/or counseling patient: Internal Medicine: Result - Labs CBC & Chem 7: 11/19/17 16:22 11/19/17 00:55 Labs: Short CBC 11/19/17 Range/Units 00:55 WBC 3.5 L (4.3-11.1) K/mcL Hgb 7.4 L (11.5-15.4) g/dL Hct 27.6 L (35.3-44.9) % Plt Count 308 (140-400) K/mcL Neutrophils # 2.3 (1.6-8.9) K/mcL BMP 11/19/17 00:55 Sodium 136 Potassium 3.5 Chloride 108 H Carbon Dioxide 19 L BUN 14 Creatinine 0.76 Glucose 106 H Calcium 8.1 L Liver Function 11/19/17 Range/Units 00:55 Total Bilirubin 0.6 (0.3-1.0) mg/dL AST 20 (13-39) Units/L ALT 8 (7-52) Units/L Alkaline Phosphatase 168 H (34-104) Units/L Albumin 2.8 L (3.5-5.7) g/dL - ABG Interpretation ABG results: PT/INR, D-dimer PT 15.8 Seconds (9.4-12.1) H 11/17/17 11:24 Consult Discharge Plan - Plan Referrals: Silver Díaz MD [Primary Care Provider] - <Raquel Romo - Last Filed: 11/19/17 23:26> Hospitalist Progress Note - Encounter Date of Encounter: 11/19/17 - Exam Vitals: Temp Pulse Resp BP Pulse Ox 98.2 F 76 15 108/64 96 11/19/17 19:25 11/19/17 19:25 11/19/17 19:25 11/19/17 19:25 11/19/17 19:25 - Assessment and Plan (1) Polycythemia vera Current Visit: Yes Status: Chronic (2) UTI (urinary tract infection) Current Visit: Yes Status: Acute - Summary of Assessment and Plan Summary of Assessment and Plan: I examined this patient and my medical decision-making was reviewed with the Resident Physician. I agree with the documented findings, disposition and treatment plan as described except to the extent set forth below. Patient still symptomatic with SOB. She denies CP. VS reviewed, patient did have fever in last 24 hours. Hemoglobin still running low. Hemodynamically stable. She appears in no acute distress though appears generally uncomfortable. Labs reviewed. 1. Weakness 2. Acute anemia - myelosuppressive vs acute blood loss 3. Elevated troponin; resolved 4. Multiple VTEs on Eliquis 5. Recent UTI 6. Fever 7. JULEE; resolved 8. Hypertension - Likely weak from anemia. Once anemia stable, will need PT/OT. - Consult GI to rule out GIB, NPO at midnight - Hold Eliquis until then - Continue Rocephin. Obtain chest x-ray. - Renally dose medications. - Time Spent with Patient Total time spent is greater than 50% in coordination of care (as documented) at patient's floor/unit and/or counseling patient: Internal Medicine: Result - Labs CBC & Chem 7: 11/19/17 16:22 11/19/17 00:55 Labs: Short CBC 11/19/17 11/19/17 Range/Units 00:55 16:22 WBC 3.5 L (4.3-11.1) K/mcL Hgb 7.4 L 8.2 L (11.5-15.4) g/dL Hct 27.6 L 29.3 L (35.3-44.9) % Plt Count 308 (140-400) K/mcL Neutrophils # 2.3 (1.6-8.9) K/mcL BMP 11/19/17 00:55 Sodium 136 Potassium 3.5 Chloride 108 H Carbon Dioxide 19 L BUN 14 Creatinine 0.76 Glucose 106 H Calcium 8.1 L Liver Function 11/19/17 Range/Units 00:55 Total Bilirubin 0.6 (0.3-1.0) mg/dL AST 20 (13-39) Units/L ALT 8 (7-52) Units/L Alkaline Phosphatase 168 H (34-104) Units/L Albumin 2.8 L (3.5-5.7) g/dL - ABG Interpretation ABG results: PT/INR, D-dimer PT 15.8 Seconds (9.4-12.1) H 11/17/17 11:24 - Impressions Impressions Chest X-Ray 11/19/17 15:27 IMPRESSION: Subtle findings described above concerning for new airspace disease or atelectasis. This is best appreciated on lateral view and could be within the right middle lobe or lingula. Recommend two-view follow-up chest x-ray after treatment to ensure resolution. D/ / Walt Maciel MD / Walt Maciel MD Interpreting Provider: Walt Maciel MD <Raquel Romo - Last Filed: 11/19/17 23:26> (2) UTI (urinary tract infection) Qualifiers: Urinary tract infection type: acute cystitis Hematuria presence: without hematuria Qualified Code(s): N30.00 - Acute cystitis without hematuria
[2017-11-19] MEDS: *HR* LORazepam 0.5 MG TABLET PO PRN (16:23)
[2017-11-19] MEDS: cefTRIAXone 2,000 MG in Water for inj. (sterile) 20 ML 20 ML IVP SCH (16:24)
[2017-11-19 16:38] LABS: Hematocrit 29.3 % (35.3-44.9); Hemoglobin 8.2 g/dL (11.5-15.4)
--- NOTE | 2017-11-19 17:35 | Electrocardiograph Report ---
[place] [id number] Test Date: 2017-11-17 Pat Name: Annika Stoddard Department: 115 Room: 3A63 Gender: F Director Business Integration: FLACO : 1945 Requested By: [id number] Order Number: [id number] Reading MD: Vibha Hilliard Measurements Intervals [place] Rate: 81 P: 44 MS: 148 QRS: 2 QRSD: 96 T: 11 QT: 375 QTc: 412 Interpretive Statements SINUS RHYTHM WITH OCCASIONAL SUPRAVENTRICULAR PREMATURE COMPLEXES Electronically Signed On 11-19-2017 17:33:16 EDT by Vibha Hilliard
--- NOTE | 2017-11-19 17:47 | Electrocardiograph Report ---
[place] [id number] Test Date: 2017-11-17 Pat Name: Annika Stoddard Department: 103 Room: 3A63 Gender: F Chapter Relations Administrator: MILLER : 1945 Requested By: Maxx Perez Order Number: [id number] Reading MD: Vibha Hilliard Measurements Intervals [place] Rate: 80 P: -10 CO: 127 QRS: -10 QRSD: 90 T: -11 QT: 352 QTc: 388 Interpretive Statements SINUS RHYTHM NONSPECIFIC T-WAVE ABNORMALITY ARTIFACT Electronically Signed On 11-19-2017 17:46:16 EDT by Vibha Hilliard
[2017-11-20 05:55] LABS: Hematocrit 29.1 % (35.3-44.9); Lymphocytes # 0.9 K/mcL (0.6-4.6); Mean Corpuscular HGB Conc 27.5 g/dL (31.6-35.5); Mean Corpuscular Hemoglobin 20.5 pg (28.0-33.3); Mean Corpuscular Volume 74.4 fL (83.0-100.0); Mean Platelet Volume 11.2 fL (9.4-12.4); Platelet Count 308 K/mcL (140-400); Red Blood Count 3.91 M/mcL (3.82-4.97); Red Cell Distribution Width 24.1 % (11.5-14.5)
[2017-11-20 06:18] LABS: BUN/Creatinine Ratio 11 (6-26); Blood Urea Nitrogen 8 mg/dL (8-23); Calcium 8.3 mg/dL (8.6-10.3); Carbon Dioxide 17 mEq/L (23-29); Chloride 112 mEq/L (98-107); Glucose 99 mg/dL (70-105); Osmolality,Calculated 288 (280-300); Potassium 3.6 mEq/L (3.5-5.1); Sodium 140 mEq/L (136-145); eGFR For Non-African Americans > 60 (> 60)
[2017-11-20 06:40] LABS: Anisocytosis 3+ (Not Present); Eosinophils # 0.2 K/mcL (0.0-0.6); Large Platelets Present (Not Present); Microcytosis Present (Not Present); Monocytes # 0.4 K/mcL (0.0-1.3); Neutrophils # 1.9 K/mcL (1.6-8.9); Platelet Estimate Normal (Normal)
[2017-11-20 06:41] LABS: Hypochromasia Present (Not Present); Polychromasia 2+ (Not Present)
[2017-11-20] MEDS: Aspirin Enteric Coated 81 MG Tablet PO SCH (07:07)
[2017-11-20] MEDS: Loratadine 10 MG TABLET PO SCH (07:07)
[2017-11-20] MEDS: Famotidine 20 MG TABLET PO SCH ×2 (07:08→20:51)
[2017-11-20] MEDS: Gabapentin 300 MG CAPSULE PO SCH ×4 (07:08→20:52)
[2017-11-20] MEDS: Ondansetron 4 MG/2 ML VIAL IVP PRN (09:45)
--- NOTE | 2017-11-20 10:38 | Gastroenterology Consult Note ---
<Ana Garber - Last Filed: 11/20/17 10:29> Date of Encounter: 11/20/17 Time of Encounter: 10:15 - Assessment and plan (1) Anemia Current Visit: No Status: Acute Assessment and plan: 72 year old female with a history of polycythemia vera. She admits to weakness and black stools. Eliquis is on hold. Will proceed with EGD today, may also need colonoscopy. Continue PPI, monitor H&H, transfuse as needed. Iron is low, continue supplementation. Qualifiers: Anemia type: iron deficiency Iron deficiency anemia type: unspecified iron deficiency Qualified Code(s): D50.9 - Iron deficiency anemia, unspecified (2) Melena Current Visit: Yes Status: Acute Assessment and plan: EGD today, may also need colonoscopy - Time Spent With Patient Total time spent is greater than 50% in coordination of care (as documented) at patient's floor/unit and/or counseling patient: GI History of Present Illness - Data of Consult Patient: new to practice Consult date: 11/20/17 Requesting Physician: Melquiades Sauer MD - Consult Narrative Reason for consult: anemia History of present illness: Ms. Stoddard is a 72 year old female history of polycythemia vera on hydroxyurea and multiple thromboembolisms on eliquis presented to the ED with complaint of generalized weakness. As per patient the night before admission she was getting out of bed by felt weak and hit her right arm to the nightstand. Denies any trauma, vision loss, loss of conciousness, seizure like activity. She reports that her generalized weakness started about a week ago and has been progressively worsening. She was seen at her primary care doctor for complaints of dysuria about 10 days ago where she was prescribed antibiotics. She finished the course of her antibiotics( does not recall name) but still complains of dysuria and frequency and additionally developed weakness and fatigue. She follows up at [facility] for her polycythemia. She does report loss of appetite in addition to the generalized weakness and fatigue but denies any significant weight loss. She admits to episodes of black stools and diarrhea, denies hemtemesis or hematochezia. In the ED she was found to have mildly elevated troponin and JULEE. She complains of occasional GERD, denies NSAIDS, she does admit to very poor appetite and some depression as she recently lost son unexpectantly. She admits to episode of GI bleed approximately 4 years ago and had EGD/colonoscopy at [facility], she states they were unable to find the source of the bleeding. Past Med Surg Social Fam HX - Past Medical History Medical history: hypertension, other Additional medical history: polycythemia vera Psychiatric history: anxiety, depression - Past Surgical History Surgical History: heart valve replacement, herniorrhaphy Additional surgical history: b/l foot surgery. "covered hole in heart" - Social History Smoking Status: Never smoker Smokeless Tobacco Status: No Alcohol use: none Drug use: none - Family History Mother History Unknown: Yes Name: Janay Family Member Ethnicity: Non- Living Status: Age at : 75 Cause of : "lungs" Hx Family Cardiac Disorders: No Hx Family Respiratory Disorders: Yes Hx Family Cancer: No Hx Family GI Disorders: No Hx Family Genitourinary Disorders: No Hx Family Endocrine Disorder: No Hx Family Musculoskeletal Disorders: No Hx Family Neurologic Disorders: No Hx Family HEENT Disorders: No Hx Family Autoimmune Disorders: No Hx Family Reproductive Disorders: No Hx Family Psychosocial Disorders: No Hx Family Medical Disorders: No Father History Unknown: Yes Name: Barrett Family Member Ethnicity: Non- Living Status: Age at : 59 Cause of : heart attack Hx Family Cardiac Disorders: Yes Hx Family Respiratory Disorders: Yes Hx Family Cancer: No Hx Family GI Disorders: No Hx Family Genitourinary Disorders: No Hx Family Endocrine Disorder: No Hx Family Musculoskeletal Disorders: No Hx Family Neuromuscular Disorders: No Hx Family Neurologic Disorders: No Hx Family HEENT Disorders: No Hx Family Autoimmune Disorders: No Hx Family Reproductive Disorders: No Hx Family Psychosocial Disorders: No Hx Family Medical Disorders: No Review of Systems: GI: as per [facility]: denies fever, has some chills EYES: denies yellow discoloration ENT: denies pain with swallowing or difficulty swallowing CARDIO: denies chest pain, palpitations RESP: Shortness of breath with exertion : denies change in color of urine NEURO: increased weakness HEME: Denies any bruising MS: denies joint pain, joint swelling or back pain. DERM: denies rash or itching PSYCH: history of anxiety or depression - Constitutional Vitals: Temp Pulse Resp BP Pulse Ox 99.0 F 84 16 139/85 96 11/20/17 08:00 11/20/17 08:00 11/20/17 08:00 11/20/17 08:00 11/20/17 08:04 Exam: CONSTITUTIONAL:~alert, no acute distress.~HEAD:~normocephalic.~EYES:~no jaundice.~NECK:~no obvious swelling.~HEART:~regular rate and rhythm, no murmurs. ~LUNGS:~bilateral poor air entry.~ABDOMEN:~non distended, soft, diffusely tender , no masses palpable, no organomegaly.~RECTAL EXAM:~Deferred.~EXTREMITIES:~no clubbing, cyanosis or edema.~SKIN:~pallor noted, no stigmata of chronic liver disease.~NEUROLOGIC:~no obvious focal defect.~~~~ Results - Labs CBC & Chem 7: 11/20/17 05:10 11/20/17 05:10 Labs: Last Result Calcium 8.3 mg/dL (8.6-10.3) L 11/20/17 05:10 Iron 13 mcg/dL (50-170) L 11/17/17 14:16 % Saturation 4 % (15-50) L 11/17/17 14:16 Transferrin 237 mg/dL (203-362) 11/17/17 14:16 Ferritin 51 ng/mL (10-120) 11/17/17 14:16 Troponin I 0.03 ng/mL (< 0.04) 11/17/17 23:03 Triglycerides 144 mg/dL (< 150) 11/18/17 05:45 Vitamin B12 613 pg/mL (250-1100) 11/17/17 14:16 Folate 12.2 ng/mL (3.0-16.0) 11/17/17 14:16 Stool Occult Blood Negative (Negative) 11/18/17 14:27 Entire Visit Hgb 8.0 g/dL (11.5-15.4) L 11/20/17 05:10 Hct 29.1 % (35.3-44.9) L 11/20/17 05:10 PT 15.8 Seconds (9.4-12.1) H 11/17/17 11:24 Ferritin 51 ng/mL (10-120) 11/17/17 14:16 Total Bilirubin 0.6 mg/dL (0.3-1.0) 11/19/17 00:55 AST 20 Units/L (13-39) 11/19/17 00:55 ALT 8 Units/L (7-52) 11/19/17 00:55 Folate 12.2 ng/mL (3.0-16.0) 11/17/17 14:16 - ABG ABG results: PT/INR, D-dimer PT 15.8 Seconds (9.4-12.1) H 11/17/17 11:24 - Impressions Impressions Chest X-Ray 11/19/17 15:27 IMPRESSION: Subtle findings described above concerning for new airspace disease or atelectasis. This is best appreciated on lateral view and could be within the right middle lobe or lingula. Recommend two-view follow-up chest x-ray after treatment to ensure resolution. D/ / Walt Maciel MD / Walt Maciel MD Interpreting Provider: Walt Maciel MD Consult Discharge Plan - Plan Referrals: Silver Díaz MD [Primary Care Provider] - <Dara Cole - Last Filed: 11/20/17 12:43> Date of Encounter: 11/20/17 Time of Encounter: 12:30 - Time Spent With Patient Total time spent is greater than 50% in coordination of care (as documented) at patient's floor/unit and/or counseling patient: GI History of Present Illness - Data of Consult Requesting Physician: Melquiades Sauer MD - Consult Narrative History of present illness: Ms. Stoddard is a 72 year old female - Constitutional Vitals: Temp Pulse Resp BP Pulse Ox 100.1 F H 91 16 129/73 98 11/20/17 11:59 11/20/17 12:34 11/20/17 12:34 11/20/17 12:34 11/20/17 12:34 Results - Labs CBC & Chem 7: 11/20/17 05:10 11/20/17 05:10 Labs: Last Result Calcium 8.3 mg/dL (8.6-10.3) L 11/20/17 05:10 Iron 13 mcg/dL (50-170) L 11/17/17 14:16 % Saturation 4 % (15-50) L 11/17/17 14:16 Transferrin 237 mg/dL (203-362) 11/17/17 14:16 Ferritin 51 ng/mL (10-120) 11/17/17 14:16 Troponin I 0.03 ng/mL (< 0.04) 11/17/17 23:03 Triglycerides 144 mg/dL (< 150) 11/18/17 05:45 Vitamin B12 613 pg/mL (250-1100) 11/17/17 14:16 Folate 12.2 ng/mL (3.0-16.0) 11/17/17 14:16 Stool Occult Blood Negative (Negative) 11/18/17 14:27 Entire Visit Hgb 8.0 g/dL (11.5-15.4) L 11/20/17 05:10 Hct 29.1 % (35.3-44.9) L 11/20/17 05:10 PT 15.8 Seconds (9.4-12.1) H 11/17/17 11:24 Ferritin 51 ng/mL (10-120) 11/17/17 14:16 Total Bilirubin 0.6 mg/dL (0.3-1.0) 11/19/17 00:55 AST 20 Units/L (13-39) 11/19/17 00:55 ALT 8 Units/L (7-52) 11/19/17 00:55 Folate 12.2 ng/mL (3.0-16.0) 11/17/17 14:16 - ABG ABG results: PT/INR, D-dimer PT 15.8 Seconds (9.4-12.1) H 11/17/17 11:24 - Impressions Impressions Chest X-Ray 11/19/17 15:27 IMPRESSION: Subtle findings described above concerning for new airspace disease or atelectasis. This is best appreciated on lateral view and could be within the right middle lobe or lingula. Recommend two-view follow-up chest x-ray after treatment to ensure resolution. D/ / Walt Maciel MD / Walt Maciel MD Interpreting Provider: Walt Maciel MD - Attending Attestation I have personally performed a face to face evaluation on this patient. I have reviewed and agree with the care plan. History and Exam by me shows: Patient seen. No abdominal tenderness on the patient. Patient with history of polycythemia now with the anemia and black stool has been on Eliquis. Assessment: Anemia and melena Recommendation: We will do an EGD and if negative then colonoscopy
--- NOTE | 2017-11-20 11:24 | Oncology Inp Progress Note ---
<Karan Salazar - Last Filed: 11/20/17 11:16> Date of Encounter: 11/20/17 Time of Encounter: 11:17 (1) Polycythemia vera Current Visit: Yes Status: Chronic Assessment and plan: hgb stable at 8 Currently holding hydroxyurea and continuing iron supplementation GI consulted for GI bleed evaluation and plan for EGD and colonoscopy hold hydroxyurea and setup follow up appointment with Dr. Tidwell at [facility]. at this point we will follow patient peripherally thank you for consult. Oncology: Subj Interval history: No acute events overnight. Patient continues to report some fatigue and shortness of breath. She denies chest pain, nausea, vomiting, abdominal pain, hematochezia. She continues to have black stool. - Constitutional Vitals: Vital Signs Temp Pulse Resp BP Pulse Ox 11/20/17 08:04 96 11/20/17 08:00 99.0 F 84 16 139/85 96 11/20/17 04:15 99.7 F H 87 19 128/72 93 11/19/17 23:30 98.8 F 76 16 137/68 95 11/19/17 19:25 98.2 F 76 15 108/64 96 11/19/17 15:50 98.8 F 87 16 146/77 96 Intake and Output 11/19/17 11/20/17 11/20/17 23:59 07:59 15:59 Intake Total 1380 / 1380 0 / 0 0 / 0 Output Total 100 / 100 400 / 400 Balance 1280 / 1280 -400 / -400 0 / 0 Intake: IV Fluids 1020 / 1020 Rocephin 2,000 MG In Water for 20 / 20 inj. (sterile) 20 ML @ 600 mls/ hr IVP Q24H [facility] Rx#:[id number] Oral 360 / 360 0 / 0 0 / 0 Output: Urine 100 / 100 400 / 400 Other: Meal Dinner NPO Percent of Meal Consumed 10% 0% Weight 76.4 kg Blood Glucose* 96 Patient Weight 11/20/17 23:59 Weight 76.4 kg - Additional findings Additional findings: General: without distress Heart: Regular rate and rhythm with no murmur Lungs: Clear to auscultation bilaterally Abdomen: Soft nontender, nondistended positive bowel sounds Skin: warm and dry, absent rash Extremities: Absent pedal edema, Neuro: alert oriented x 3 Vascular: Pedal and radial pulses 2 out of 4 Oncology: Obj Data - Labs CBC & Chem 7: 11/20/17 05:10 11/20/17 05:10 Labs: Laboratory Results - last 24 hr 11/18/17 11/19/17 11/19/17 20:16 07:34 12:59 WBC RBC Hgb Hct MCV MCH MCHC RDW Plt Count MPV Seg Neutrophils % Band Neutrophils % Lymphocytes % Monocytes % Eosinophils % Neutrophils # Lymphocytes # Monocytes # Eosinophils # Platelet Estimate Large Platelets Polychromasia Hypochromasia Anisocytosis Microcytosis Sodium Potassium Chloride Carbon Dioxide BUN Creatinine Est GFR ( Amer) Est GFR (Non-Af Amer) BUN/Creatinine Ratio Glucose POC Glucose 97 90 94 Calculated Osmolality Calcium Stl C. diff Tox B Gene 11/19/17 11/19/17 11/20/17 15:50 16:22 05:10 WBC 3.3 L RBC 3.91 Hgb 8.2 L 8.0 L Hct 29.3 L 29.1 L MCV 74.4 L MCH 20.5 L MCHC 27.5 L RDW 24.1 H Plt Count 308 MPV 11.2 Seg Neutrophils % 52.0 Band Neutrophils % 4.0 Lymphocytes % 26.0 Monocytes % 12.0 Eosinophils % 6.0 Neutrophils # 1.9 Lymphocytes # 0.9 Monocytes # 0.4 Eosinophils # 0.2 Platelet Estimate Normal Large Platelets Present A Polychromasia 2+ A Hypochromasia Present A Anisocytosis 3+ A Microcytosis Present A Sodium Potassium Chloride Carbon Dioxide BUN Creatinine Est GFR ( Amer) Est GFR (Non-Af Amer) BUN/Creatinine Ratio Glucose POC Glucose Calculated Osmolality Calcium Stl C. diff Tox B Gene Negative 11/20/17 11/20/17 05:10 05:22 WBC RBC Hgb Hct MCV MCH MCHC RDW Plt Count MPV Seg Neutrophils % Band Neutrophils % Lymphocytes % Monocytes % Eosinophils % Neutrophils # Lymphocytes # Monocytes # Eosinophils # Platelet Estimate Large Platelets Polychromasia Hypochromasia Anisocytosis Microcytosis Sodium 140 Potassium 3.6 Chloride 112 H Carbon Dioxide 17 L BUN 8 Creatinine 0.70 Est GFR ( Amer) > 60 Est GFR (Non-Af Amer) > 60 BUN/Creatinine Ratio 11 Glucose 99 POC Glucose 96 Calculated Osmolality 288 Calcium 8.3 L Stl C. diff Tox B Gene - Impressions Impressions Chest X-Ray 11/19/17 15:27 IMPRESSION: Subtle findings described above concerning for new airspace disease or atelectasis. This is best appreciated on lateral view and could be within the right middle lobe or lingula. Recommend two-view follow-up chest x-ray after treatment to ensure resolution. D/ / Walt Maciel MD / Walt Maciel MD Interpreting Provider: Walt Maciel MD - ABG Interpretation ABG results: PT/INR, D-dimer PT 15.8 Seconds (9.4-12.1) H 11/17/17 11:24 Consult Discharge Plan - Plan Referrals: Silver Díaz MD [Primary Care Provider] - <Paige Green - Last Filed: 11/21/17 08:51> Date of Encounter: 11/21/17 (1) Polycythemia vera Current Visit: Yes Status: Chronic Oncology: Subj Interval history: Labs have been steady. She is on oral iron therapy. She is feeling fair fatigued with slight improvement over the last few days since admission. She might need further decreased dose of Hydrea been started once her counts returned back to normal. She would like to discuss this further with her boiling house hand at [facility]. I examined this patient with rsident physician Dr Salazar, ana m Hubbard and my medical decision-making was reviewed with him. I agree with the documented findings, disposition and treatment plan as described except to the extent set forth below. - Constitutional Vitals: Vital Signs Temp Pulse Resp BP Pulse Ox 11/21/17 08:14 93 11/21/17 07:47 98.5 F 78 16 133/77 93 11/21/17 03:44 100.1 F H 80 16 135/78 96 11/20/17 20:48 98.1 F 77 16 123/73 96 11/20/17 15:36 98.4 F 86 16 137/83 94 11/20/17 13:30 99.0 F 86 16 133/72 100 11/20/17 13:05 99.0 F 92 16 103/63 98 11/20/17 12:34 91 16 129/73 98 11/20/17 11:59 100.1 F H 92 16 130/79 96 Intake and Output 11/20/17 11/21/17 11/21/17 23:59 07:59 15:59 Intake Total 0 / 0 Output Total 0 / 0 250 / 250 Balance 20 / 20 -250 / -250 Intake: IV Fluids / Rocephin 2,000 MG In Water for inj. (sterile) 20 ML @ 600 mls/ hr IVP Q24H [facility] Rx#:[id number] Oral 0 / 0 0 / 0 Output: Urine 0 / 0 250 / 250 Other: Weight 77 kg Patient Weight 11/21/17 23:59 Weight 77 kg Oncology: Obj Data - Labs CBC & Chem 7: 11/21/17 05:41 11/21/17 05:41 Labs: Laboratory Results - last 24 hr 11/19/17 11/19/17 11/20/17 17:06 20:08 12:03 WBC RBC Hgb Hct MCV MCH MCHC RDW Plt Count MPV Nucleated RBCs/100 WBC Sodium Potassium Chloride Carbon Dioxide BUN Creatinine Est GFR ( Amer) Est GFR (Non-Af Amer) BUN/Creatinine Ratio Glucose POC Glucose 94 96 92 Calculated Osmolality Calcium 11/21/17 11/21/17 05:41 05:41 WBC 3.8 L RBC 3.88 Hgb 7.9 L Hct 28.4 L MCV 73.2 L MCH 20.4 L MCHC 27.8 L RDW 24.4 H Plt Count 342 MPV 11.3 Nucleated RBCs/100 WBC 0.5 H Sodium 140 Potassium 3.4 L Chloride 110 H Carbon Dioxide 21 L BUN 7 L Creatinine 0.64 Est GFR ( Amer) > 60 Est GFR (Non-Af Amer) > 60 BUN/Creatinine Ratio 11 Glucose 103 POC Glucose Calculated Osmolality 288 Calcium 8.3 L - ABG Interpretation ABG results: PT/INR, D-dimer PT 15.8 Seconds (9.4-12.1) H 11/17/17 11:24
[2017-11-20] MEDS ORDERED: *HR* Propofol 200 MG/20 ML VIAL IVP ONE (11:38)
[2017-11-20] MEDS ORDERED: *HR* FentaNYL (PF) 100 MCG/2 ML VIAL ONE (11:38)
--- NOTE | 2017-11-20 12:36 | Anesthesia Evaluation PreOp ---
Date of Encounter: 11/20/17 Time of Encounter: 12:35 - Past History Planned Operation: EGD Cardiac History: [place] (Admitted with generalized weakness, found to have some elevated troponins. Evaluated by cardiology and felt to be secondary to dehydration and acute kidney injury. 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 Reports hx of memory loss.) Other Medical History: Thyroid (Possible untreated hypothyroidism, currently under evaluation by internal medicine.), Other (Hx of polycythemia vera, followed by hematology at [facility]) Anesthesia History: No Prior Anesthetic Complications, Past Anesthesia : No Alcohol Use: none Drug use: none Medications and Allergies Amlodipine Besylate 10 mg PO DAILY 10/11/17 [History] Apixaban [Eliquis] 5 mg PO BID 10/11/17 [History] Aspirin [Lo-Dose Aspirin EC] 81 mg PO DAILY 10/11/17 [History] Atorvastatin [Lipitor] 40 mg PO HS 10/11/17 [History] Gabapentin [Neurontin] 300 mg PO QPM 10/11/17 [History] Gabapentin [Neurontin] 600 mg PO QAM 10/11/17 [History] Gabapentin [Neurontin] 900 mg PO HS 10/11/17 [History] Hydroxyurea 500 mg PO DAILY 10/11/17 [History] Lisinopril [Zestril] 40 mg PO DAILY 10/11/17 [History] Loratadine [Claritin] 10 mg PO DAILY 10/11/17 [History] Omeprazole [PriLOSEC] 20 mg PO HS 10/11/17 [History] Ranitidine HCl [Acid Mastic Floor Layer] 150 mg PO BID 10/11/17 [History] Tizanidine HCl 4 mg PO HS PRN 10/11/17 [History] Acetaminophen [Tylenol] 650 mg PO Q6HR PRN tablet 10/14/17 [Rx] Docusate [Colace] 100 mg PO BID PRN capsule 10/14/17 [Rx] Metoprolol XL (24 HR) Succ [Toprol Xl] 50 mg PO DAILY tab.er.24h 10/14/17 [Rx] HYDROcodone/Acet 7.5/325 mg [Adkins 7.5-325 mg] 1 - 2 tab PO Q8H PRN 11/17/17 [ History] 3 Allergy/AdvReac Type Severity Reaction Status Date / Time No Known Allergies Allergy Verified 10/11/17 15:17 - Meds/Allergy Pre-op Review Medications Reviewed: Yes Allergies Reviewed: Yes Beta Blockers on Current Med List: No Anesthesia Results - Labs 11/20/17 05:10 11/20/17 05:10 - Imaging EKG: report reviewed (Sinus rhythm with occ PVCs) Anesthesia Exam Selected Entries 11/20/17 12:34 Pulse Rate 91 Respiratory Rate 16 Blood Pressure 129/73 O2 Sat by Pulse Oximetry 98 Weight: 77 kg BMI 28 NPO (# of Hours): over 8 hours - HEENT Pupil (Motor): Pupils equal Teeth: Missing, Prosthesis Denture Type: Upper: Partial Oral Opening: Greater than 3 - Cardiac Rhythm: Regular Murmur: None - Pulmonary Breath Sounds: bilateral Clear Respiratory Effort: Symmetrical Anesthesia Assess/Plan ASA Score: 3 Modified Hewitt Scale for Level of Consciousness: Cooperative, oriented, and tranquil Anesthetic Plan: MAC Monitoring Plan: Standard Monitors (Discussed MAC anesthesia, agreed to proceed. )
--- NOTE | 2017-11-20 13:05 | Anesthesia Evaluation Post Op ---
Date of Encounter: 11/20/17 Time of Encounter: 13:04 - Vital Signs Vital Signs: Vital Signs/O2 Sat/Glucose, Most Recent Temp Pulse Resp BP Pulse Ox 100.1 F H 91 16 129/73 98 11/20/17 11:59 11/20/17 12:34 11/20/17 12:34 11/20/17 12:34 11/20/17 12:34 Blood Glucose* 92 - Lungs Lungs: Clear Ascult./Percussion - Airway Airway: Non-obstructed - Cardiovascular Regular Rate - Mental Status Mental Status: Alert & Oriented, Answers Appropriately - Pain Pain Scale: 0 Pain Scale used: Numeric (1 - 10) - Nausea Vomiting Nausea Vomiting: Not Present - Hydration Hydration: NPO - Discharge PostOp Status: Transfer Patient to floor
--- NOTE | 2017-11-20 14:03 | Internal Med Progress Note ---
<Amita Hough P - Last Filed: 11/20/17 19:10> Date of Encounter: 11/20/17 Time of Encounter: 10:30 - Assessment and plan (1) Diarrhea Current Visit: No Status: Acute Assessment and plan: Diarrhoea has been resolved now , She doesn't have any loose motion today . We are working for Black stool and dropping of Hemoglobin with Upper GI Endoscopy and Colonoscopy to find out any bleeding points and latest UGI endoscopy showed only reflux Esophagitis without any bleeding points. Colonoscopy awaited Qualifiers: Diarrhea type: unspecified type Qualified Code(s): R19.7 - Diarrhea, unspecified (2) Anemia Current Visit: Yes Status: Acute Assessment and plan: W have planned for Upper GI endoscopy and colonoscopy for any bleeding points . Latest UGI endoscopy report shows mild esophagitis without any active bleeding points , colonoscopy awaited She is on Iron theraphy Hydroxyurea is on hold : Consulted with Hematooncologist Daily monitoring of CBC with differential and RBC morphology Qualifiers: Anemia type: iron deficiency Iron deficiency anemia type: chronic blood loss Qualified Code(s): D50.0 - Iron deficiency anemia secondary to blood loss (chronic) (3) Weakness Current Visit: Yes Status: Acute Assessment and plan: She has h/o generalized weakness without h/o weight loss . It might be due to anaemia and dehydration (4) Cystitis Current Visit: No Status: Suspected (5) DVT prophylaxis Current Visit: Yes Status: Acute Assessment and plan: She is on DVT prophylaxis Eliquis - Subjective Interval history: This 72 years old female admitted here for generalized weakness and she was case of Polycythemia Vera on Hydroxyurea and multiple thomboembolism on Eliquis. She denies any significant weight loss . She is under evaluation of Adjunct Faculty Mathematics Department for pancytopenia ? due to hydroxyurea .This patient developed diarrhoea since yesterday, she has had 2 bowel movements this morning, stool was black , but no blood. She is on Iron therapy. She denies any mucous, fresh blood in her stool. She has had mild abdominal cramps and bloating . She has recorded temperature 101.3 F . She denies fever, vomiting, nausea, abdominal distension. She also denies any cough , SOB, chest pain or tightness. Her chest xray report shows mild atelecsis in right lobe and UGI endoscopy done today shows Grade D esophagitis - Constitutional Vitals: Temp Pulse Resp BP Pulse Ox 99.0 F 86 16 133/72 100 11/20/17 13:30 11/20/17 13:30 11/20/17 13:30 11/20/17 13:30 11/20/17 13:30 General appearance: Present: cooperative, A&O X 3, no acute distress, answers questions appropriately - Head Head exam: Present: atraumatic, normal inspection, normocephalic - Respiratory Additional comments: Chest expansion is good, air entry equal in both side, no wheezes and occasional rales noted especially at bases - Cardiovascular Additional comments: S1 S2 audible normal rate and rhythm, no added sound and murmur - GI/Abdominal Additional comments: Soft , non distended abdomen , BS + , no rigidity and guarding , no organomegaly and no mass or visible pulsation. - Skin Additional comments: Normal finding Internal Medicine: Result - Labs CBC & Chem 7: 11/20/17 05:10 11/20/17 05:10 Labs: Short CBC 11/19/17 11/20/17 Range/Units 16:22 05:10 WBC 3.3 L (4.3-11.1) K/mcL Hgb 8.2 L 8.0 L (11.5-15.4) g/dL Hct 29.3 L 29.1 L (35.3-44.9) % Plt Count 308 (140-400) K/mcL Neutrophils # 1.9 (1.6-8.9) K/mcL BMP 11/20/17 05:10 Sodium 140 Potassium 3.6 Chloride 112 H Carbon Dioxide 17 L BUN 8 Creatinine 0.70 Glucose 99 Calcium 8.3 L - ABG Interpretation ABG results: PT/INR, D-dimer PT 15.8 Seconds (9.4-12.1) H 11/17/17 11:24 - Impressions Impressions Chest X-Ray 11/19/17 15:27 IMPRESSION: Subtle findings described above concerning for new airspace disease or atelectasis. This is best appreciated on lateral view and could be within the right middle lobe or lingula. Recommend two-view follow-up chest x-ray after treatment to ensure resolution. D/ / Walt Maciel MD / Walt Maciel MD Interpreting Provider: Walt Maciel MD Consult Discharge Plan - Plan Referrals: Silver Díaz MD [Primary Care Provider] - <Raquel Romo - Last Filed: 11/20/17 22:36> Date of Encounter: 11/20/17 - Assessment and plan (1) Polycythemia vera Current Visit: Yes Status: Chronic (2) UTI (urinary tract infection) Current Visit: Yes Status: Acute Qualifiers: Urinary tract infection type: acute cystitis Hematuria presence: without hematuria Qualified Code(s): N30.00 - Acute cystitis without hematuria - Constitutional Vitals: Temp Pulse Resp BP Pulse Ox 98.1 F 77 16 123/73 96 11/20/17 20:48 11/20/17 20:48 11/20/17 20:48 11/20/17 20:48 11/20/17 20:48 Internal Medicine: Result - Labs CBC & Chem 7: 11/20/17 05:10 11/20/17 05:10 Labs: Short CBC 11/20/17 Range/Units 05:10 WBC 3.3 L (4.3-11.1) K/mcL Hgb 8.0 L (11.5-15.4) g/dL Hct 29.1 L (35.3-44.9) % Plt Count 308 (140-400) K/mcL Neutrophils # 1.9 (1.6-8.9) K/mcL BMP 11/20/17 05:10 Sodium 140 Potassium 3.6 Chloride 112 H Carbon Dioxide 17 L BUN 8 Creatinine 0.70 Glucose 99 Calcium 8.3 L - ABG Interpretation ABG results: PT/INR, D-dimer PT 15.8 Seconds (9.4-12.1) H 11/17/17 11:24 - Attending Attestation I examined this patient and my medical decision-making was reviewed with the Resident Physician. I agree with the documented findings, disposition and treatment plan as described except to the extent set forth below.
[2017-11-20] MEDS ORDERED: Preparation H Ointment 30 GM TUBE TP PRN (14:24)
[2017-11-20] MEDS: cefTRIAXone 2,000 MG in Water for inj. (sterile) 20 ML 20 ML IVP SCH (16:19)
[2017-11-20] MEDS: Acetaminophen 325 MG TABLET PO PRN (16:22)
[2017-11-21] MEDS: Acetaminophen 325 MG TABLET PO PRN ×2 (03:50→18:51)
[2017-11-21 06:41] LABS: BUN/Creatinine Ratio 11 (6-26); Blood Urea Nitrogen 7 mg/dL (8-23); Calcium 8.3 mg/dL (8.6-10.3); Carbon Dioxide 21 mEq/L (23-29); Chloride 110 mEq/L (98-107); Glucose 103 mg/dL (70-105); Osmolality,Calculated 288 (280-300); Potassium 3.4 mEq/L (3.5-5.1); Sodium 140 mEq/L (136-145); eGFR For Non-African Americans > 60 (> 60)
[2017-11-21 07:08] LABS: Nucleated Red Blood Cells 0.5 /100 WBC (0)
[2017-11-21 07:09] LABS: Basophils % 0.3 %; Eosinophils # 0.1 K/mcL (0.0-0.6); Eosinophils % 2.6 %; Hematocrit 28.4 % (35.3-44.9); Hemoglobin 7.9 g/dL (11.5-15.4); Lymphocytes # 0.9 K/mcL (0.6-4.6); Lymphocytes % 24.1 %; Mean Corpuscular HGB Conc 27.8 g/dL (31.6-35.5); Mean Corpuscular Hemoglobin 20.4 pg (28.0-33.3); Mean Corpuscular Volume 73.2 fL (83.0-100.0); Mean Platelet Volume 11.3 fL (9.4-12.4); Monocytes # 0.6 K/mcL (0.0-1.3); Monocytes % 15.6 %; Neutrophils # 1.8 K/mcL (1.6-8.9); Platelet Count 342 K/mcL (140-400); Red Blood Count 3.88 M/mcL (3.82-4.97); Red Cell Distribution Width 24.4 % (11.5-14.5); Segmented Neutrophils % 48.4 %
[2017-11-21] MEDS: Loratadine 10 MG TABLET PO SCH (08:05)
[2017-11-21] MEDS: *HR* LORazepam 0.5 MG TABLET PO PRN ×2 (08:05→16:16)
[2017-11-21] MEDS: Gabapentin 300 MG CAPSULE PO SCH ×4 (08:05→19:56)
[2017-11-21] MEDS: Aspirin Enteric Coated 81 MG Tablet PO SCH (08:06)
[2017-11-21] MEDS: Famotidine 20 MG TABLET PO SCH ×2 (08:06→19:55)
--- NOTE | 2017-11-21 09:35 | Internal Med Progress Note ---
<Amita Hough P - Last Filed: 11/21/17 16:29> Date of Encounter: 11/21/17 Time of Encounter: 10:00 - Assessment and plan (1) Diarrhea Current Visit: No Status: Acute Assessment and plan: Diarrhoea has been resolved now , She doesn't have any loose motion today . We are working for Black stool and dropping of Hemoglobin with Upper GI Endoscopy and Colonoscopy to find out any bleeding points and latest UGI endoscopy showed only reflux Esophagitis without any bleeding points. Colonoscopy awaited She developed sudden abdominal pain and diarrhoea , so CT abdomen has been ordered to r/o acute abdominal pathology. Report awaited. Qualifiers: Diarrhea type: unspecified type Qualified Code(s): R19.7 - Diarrhea, unspecified (2) Anemia Current Visit: Yes Status: Acute Assessment and plan: We did Upper GI endoscopy and colonoscopy for any bleeding points . Latest UGI endoscopy report shows mild esophagitis without any active bleeding points , colonoscopy awaited She is on Iron theraphy Hydroxyurea is on hold : Consulted with Hematooncologist . Daily monitoring of CBC with differential and RBC morphology Qualifiers: Anemia type: iron deficiency Iron deficiency anemia type: chronic blood loss Qualified Code(s): D50.0 - Iron deficiency anemia secondary to blood loss (chronic) (3) Weakness Current Visit: Yes Status: Acute Assessment and plan: She has h/o generalized weakness without h/o weight loss . It might be due to anaemia and dehydration. (4) Cystitis Current Visit: No Status: Suspected Assessment and plan: She has not any fresh complain about urination , no burning micturition or blood ih urine , She is on IV antibiotics: ceftriaxone 2 gram (5) DVT prophylaxis Current Visit: Yes Status: Acute Assessment and plan: She is on DVT prophylaxis Eliquis No swelling of lower legs and signs of coagulopathy noted - Subjective Interval history: This 72 years old female admitted here for generalized weakness and she was case of Polycythemia Vera on Hydroxyurea and multiple thomboembolism on Eliquis. She denies any significant weight loss . She is under evaluation of Media Developer for pancytopenia ? due to hydroxyurea .This patient has black stool , but no fresh blood. She is on Iron therapy. She denies any mucous, fresh blood in her stool. She has had mild abdominal cramps and bloating yesterday , but improved today . She denies diarrhoea today . She has recorded temperature 101.1 F Today . She denies subjective fever, vomiting, nausea, abdominal distension. She also denies any cough , SOB, chest pain or tightness. Her chest xray report shows mild atelecsis in right lower lobe and UGI endoscopy done today shows Grade D esophagitis and Colonoscopy evaluation is still on the way She felt much improved this morning , her feeling of weakness is getting slightly better, She has scheduled to follow up visit with Hemato-oncologist in January . She can be discharged in a few days The patient has new comlaints : abdominal pain and diarrhoea . She was order abdominal CT without contrast to r/o acute abdominal pathology and report is awaited - Constitutional Vitals: Temp Pulse Resp BP Pulse Ox 98.5 F 78 16 133/77 93 11/21/17 07:47 11/21/17 07:47 11/21/17 07:47 11/21/17 07:47 11/21/17 08:14 General appearance: Present: cooperative, A&O X 3, no acute distress, answers questions appropriately - Head Head exam: Present: atraumatic, normal inspection, normocephalic - ENT Additional comments: No redness, no tonsillar enlargement , no ulcer , no contiguous LN enlargement - Respiratory Additional comments: Air entry is good both side, good and equal chest expansion both side, few scattered rales heard at right side , no wheezing , no use of accessary muscles , no chest wall tenderness - Cardiovascular Additional comments: S1 S2 normal rate and rhythm, no murmur or added sound, no increased JVP - GI/Abdominal Additional comments: Soft, warm, minimally distended and mild generalized tenderness ,no organomegaly, BS+, no rigidity and guarding , no mass or visible pulsation. - Extremities Exam Additional comments: No calf swelling , no rashes , no sign of Neuropathy , Peripheral pulsation intact Internal Medicine: Result - Labs CBC & Chem 7: 11/21/17 13:57 11/21/17 05:41 Labs: Short CBC 11/21/17 Range/Units 05:41 WBC 3.8 L (4.3-11.1) K/mcL Hgb 7.9 L (11.5-15.4) g/dL Hct 28.4 L (35.3-44.9) % Plt Count 342 (140-400) K/mcL [facility] 11/21/17 05:41 Sodium 140 Potassium 3.4 L Chloride 110 H Carbon Dioxide 21 L BUN 7 L Creatinine 0.64 Glucose 103 Calcium 8.3 L - ABG Interpretation ABG results: PT/INR, D-dimer PT 15.8 Seconds (9.4-12.1) H 11/17/17 11:24 Consult Discharge Plan - Plan Referrals: Silver Díaz MD [Primary Care Provider] - <Raquel Romo - Last Filed: 11/21/17 18:03> Date of Encounter: 11/21/17 - Assessment and plan (1) Polycythemia vera Current Visit: Yes Status: Chronic (2) UTI (urinary tract infection) Current Visit: Yes Status: Acute Qualifiers: Urinary tract infection type: acute cystitis Hematuria presence: without hematuria Qualified Code(s): N30.00 - Acute cystitis without hematuria - Constitutional Vitals: Temp Pulse Resp BP Pulse Ox 100.3 F H 100 16 133/83 94 11/21/17 15:34 11/21/17 15:34 11/21/17 15:34 11/21/17 15:34 11/21/17 15:34 Internal Medicine: Result - Labs CBC & Chem 7: 11/21/17 13:57 11/21/17 05:41 Labs: Short CBC 11/21/17 11/21/17 Range/Units 05:41 13:57 WBC 3.8 L (4.3-11.1) K/mcL Hgb 7.9 L 8.8 L (11.5-15.4) g/dL Hct 28.4 L 31.2 L (35.3-44.9) % Plt Count 342 (140-400) K/mcL Neutrophils # 1.8 (1.6-8.9) K/mcL [facility] 11/21/17 05:41 Sodium 140 Potassium 3.4 L Chloride 110 H Carbon Dioxide 21 L BUN 7 L Creatinine 0.64 Glucose 103 Calcium 8.3 L - ABG Interpretation ABG results: PT/INR, D-dimer PT 15.8 Seconds (9.4-12.1) H 11/17/17 11:24 - Attending Attestation I examined this patient and my medical decision-making was reviewed with the Resident Physician. I agree with the documented findings, disposition and treatment plan as described except to the extent set forth below. Today complained of diarrhea. No fevers/chills. She later in the day developed lower abdominal pain. CT abdomen/pelvis ordered. H&H low in AM at 7.9. Repeta in after noon improved to 8.8. Follow-up CT abdomen/pelvis. If negative and H&H stable tomorrow, likely discharge tomorrow with GI follow-up, iron supplementation EGD yesterday showed esophagitis, started BID ppi and carafate. Weakness is likely due to iron deficiency anemia Continue oral ferrous sulfate Continue BID omeprazole, carafate QID I d/w Hemo/Onc resident and we will restart hydroxyurea today since this is likely anemia from iron deficiency and not myelosuppression. Follow-up CT abdomen/pelvis
[2017-11-21] MEDS: Sucralfate 1 GM TABLET PO SCH ×3 (11:36→22:25)
[2017-11-21] MEDS ORDERED: traMADol 50 MG TABLET PO PRN (13:51)
[2017-11-21 14:10] LABS: Hemoglobin 8.8 g/dL (11.5-15.4)
[2017-11-21 14:12] LABS: Hematocrit 31.2 % (35.3-44.9)
[2017-11-21] MEDS ORDERED: Isovue-370 500 ML INFUS..BTL IV ONE (15:31)
[2017-11-21] MEDS ORDERED: Isovue-370 500 ML INFUS..BTL PO ONE (15:47)
[2017-11-21] MEDS: cefTRIAXone 2,000 MG in Water for inj. (sterile) 20 ML 20 ML IVP SCH (16:16)
[2017-11-21] MEDS: OXYCODONE Oral CONC 10 MG/0.5 ML ORAL.SYG SL PRN (16:17)
[2017-11-21 17:13] LABS: Burr Cells 1+ (Not Present); Hypochromasia Present (Not Present); Microcytosis Present (Not Present)
[2017-11-21] MEDS: traMADol 50 MG TABLET PO PRN (22:26)
[2017-11-22 04:16] LABS: Basophils % 0.2 %; Lymphocytes % 19.2 %
[2017-11-22 04:17] LABS: Eosinophils # 0.1 K/mcL (0.0-0.6); Eosinophils % 1.2 %; Hematocrit 30.6 % (35.3-44.9); Hemoglobin 8.4 g/dL (11.5-15.4); Immature Granulocytes % 9.8 % (0-4); Lymphocytes # 1.1 K/mcL (0.6-4.6); Mean Corpuscular HGB Conc 27.5 g/dL (31.6-35.5); Mean Corpuscular Hemoglobin 20.5 pg (28.0-33.3); Mean Corpuscular Volume 74.6 fL (83.0-100.0); Mean Platelet Volume 10.6 fL (9.4-12.4); Monocytes # 0.9 K/mcL (0.0-1.3); Monocytes % 15.8 %; Nucleated Red Blood Cells 0.4 /100 WBC (0); Platelet Count 364 K/mcL (140-400); Segmented Neutrophils % 53.8 %
[2017-11-22 04:35] LABS: BUN/Creatinine Ratio 10 (6-26); Blood Urea Nitrogen 8 mg/dL (8-23); Calcium 8.2 mg/dL (8.6-10.3); Carbon Dioxide 22 mEq/L (23-29); Chloride 108 mEq/L (98-107); Glucose 99 mg/dL (70-105); Osmolality,Calculated 286 (280-300); Potassium 3.6 mEq/L (3.5-5.1); Sodium 139 mEq/L (136-145); eGFR For Non-African Americans > 60 (> 60)
[2017-11-22 04:46] LABS: Anisocytosis 2+ (Not Present); Large Platelets Present (Not Present); Platelet Estimate Normal (Normal); Poikilocytosis 2+ (Not Present); Polychromasia 1+ (Not Present)
[2017-11-22] MEDS: Sucralfate 1 GM TABLET PO SCH ×4 (07:29→20:46)
[2017-11-22] MEDS: OXYCODONE Oral CONC 10 MG/0.5 ML ORAL.SYG SL PRN (07:32)
[2017-11-22] MEDS: Ondansetron 4 MG/2 ML VIAL IVP PRN (08:14)
[2017-11-22] MEDS ORDERED: Aminoglycoside Consult 1 EACH MC ONE (08:19)
[2017-11-22] MEDS ORDERED: Hydroxyurea 500 MG CAPSULE PO SCH (09:00)
[2017-11-22] MEDS: Gabapentin 300 MG CAPSULE PO SCH ×4 (09:50→20:45)
[2017-11-22] MEDS: Piperacillin/Tazobactam 3.375 GM in 0.9 % Sodium Chloride Mini Bag 100 ML IVPB SCH ×2 (09:50→16:57)
[2017-11-22] MEDS: Loratadine 10 MG TABLET PO SCH (09:50)
[2017-11-22] MEDS: Aspirin Enteric Coated 81 MG Tablet PO SCH (09:50)
[2017-11-22] MEDS: Famotidine 20 MG TABLET PO SCH ×2 (09:50→20:46)
--- NOTE | 2017-11-22 11:07 | Internal Med Progress Note ---
<Amita Hough P - Last Filed: 11/22/17 16:47> Date of Encounter: 11/22/17 Time of Encounter: 09:30 - Assessment and plan (1) Diarrhea Current Visit: No Status: Acute Assessment and plan: We are working for Black stool and dropping of Hemoglobin with Upper GI Endoscopy and Colonoscopy to find out any bleeding points and latest UGI endoscopy showed only reflux Esophagitis without any bleeding points. Colonoscopy awaited She developed sudden abdominal pain and diarrhoea yesterday , so CT abdomen and pelvis ordered to r/o acute abdominal pathology. Report shows cholilithiasis and biliary slough, periportal LN enlargement, splenomegaly and right lower Lobe atelectasis and mild plural effusion Closely monitoring for impending colangitis and on IV antibiotics for pneumonia Qualifiers: Diarrhea type: unspecified type Qualified Code(s): R19.7 - Diarrhea, unspecified (2) Anemia Current Visit: Yes Status: Acute Assessment and plan: We did Upper GI endoscopy and colonoscopy for any bleeding points . Latest UGI endoscopy report shows mild esophagitis without any active bleeding points , colonoscopy awaited She is on Iron therapy Hydroxyurea is on hold : Consulted with Hematooncologist . Daily monitoring of CBC with differential and RBC morphology Todays WBC and RBC count has been increased as compared to before . Her HB and hematocrit has also been increased Qualifiers: Anemia type: iron deficiency Iron deficiency anemia type: chronic blood loss Qualified Code(s): D50.0 - Iron deficiency anemia secondary to blood loss (chronic) (3) Weakness Current Visit: Yes Status: Acute (4) Cystitis Current Visit: No Status: Suspected (5) DVT prophylaxis Current Visit: Yes Status: Acute - Subjective Interval history: This 72 years old female admitted here for generalized weakness and she was case of Polycythemia Vera on Hydroxyurea and multiple thomboembolism on Eliquis. She denies any significant weight loss . She is under evaluation of Otolaryngology Rep for pancytopenia ? due to hydroxyurea .This patient has black stool , but no fresh blood. She is on Iron therapy. She denies any mucous, fresh blood in her stool. She has had mild abdominal cramps and bloating yesterday , but improved today . She denies diarrhoea today . She has recorded temperature 100.3 F Today morning and comes down in afternoon . She denies subjective fever, vomiting, nausea, abdominal distension. She also denies any cough , SOB, chest pain or tightness. Her chest xray report shows mild atelecsis in right lower lobe and UGI endoscopy done today shows Grade D esophagitis and Colonoscopy evaluation is still on the way The patient has new complaints yesterday : abdominal pain both right and left lower quadrant and diarrhoea .Her abdominal and pelvis CT without contrast report shows : Cholilithiasis and biliary slough enlarged periportal LN, splenomegaly , pleural effusion and atelectasis . She looks anxious , sweating but was afebrile during examination - Constitutional Vitals: Temp Pulse Resp BP Pulse Ox 98.6 F 95 16 160/84 94 11/22/17 08:00 11/22/17 08:00 11/22/17 08:00 11/22/17 08:00 11/22/17 08:00 General appearance: Present: cooperative, A&O X 3, no acute distress, answers questions appropriately - Respiratory Additional comments: Air entry is good both side, good and equal chest expansion both side, few scattered rales heard at right side , no wheezing , no use of accessary muscles , no chest wall tenderness - Cardiovascular Additional comments: S1 S2 normal rate and rhythm, no murmur or added sound, no increased JVP - GI/Abdominal Additional comments: Soft, warm, minimally distended and mild vague tenderness over both right and left lower quadrant , Gaitan's sign negative ,no organomegaly, BS+, no rigidity and guarding , no mass or visible pulsation. - Extremities Exam Additional comments: No calf swelling , no rashes , no sign of Neuropathy , Peripheral pulsation intact Internal Medicine: Result - Labs CBC & Chem 7: 11/22/17 03:52 11/22/17 03:52 Labs: Short CBC 11/21/17 11/21/17 11/22/17 Range/Units 05:41 13:57 03:52 WBC 5.6 (4.3-11.1) K/mcL Hgb 8.8 L 8.4 L (11.5-15.4) g/dL Hct 31.2 L 30.6 L (35.3-44.9) % Plt Count 364 (140-400) K/mcL Neutrophils # 1.8 3.0 (1.6-8.9) K/mcL BMP 11/22/17 03:52 Sodium 139 Potassium 3.6 Chloride 108 H Carbon Dioxide 22 L BUN 8 Creatinine 0.77 Glucose 99 Calcium 8.2 L - ABG Interpretation ABG results: PT/INR, D-dimer PT 15.8 Seconds (9.4-12.1) H 11/17/17 11:24 - Impressions Impressions Abdomen/Pelvis CT 11/21/17 18:00 IMPRESSION: 1. Trace right pleural effusion and small volume ascites. 2. Periportal adenopathy up to 1.8 cm noted along with periportal edema which could be due to the periportal adenopathy but there are also other possible causes which which include hepatitis and cholangitis. 3. Gallbladder distention with cholelithiasis and sludge also noted. No clear evidence for acute cholecystitis. 4. Splenomegaly. Spleen measures 17 cm in craniocaudal length. D/ / Dash Wu MD / Dash Wu MD Interpreting Provider: Dash Wu MD - VTE Documentation of Mechanical Device: Intermittent pneumatic compression device Consult Discharge Plan - Plan Referrals: Silver Díaz MD [Primary Care Provider] - 12/03/17 1:30 pm <Raquel Romo - Last Filed: 11/22/17 18:04> Date of Encounter: 11/22/17 - Assessment and plan (1) Polycythemia vera Current Visit: Yes Status: Chronic (2) UTI (urinary tract infection) Current Visit: Yes Status: Acute Qualifiers: Urinary tract infection type: acute cystitis Hematuria presence: without hematuria Qualified Code(s): N30.00 - Acute cystitis without hematuria - Constitutional Vitals: Temp Pulse Resp BP Pulse Ox 98.3 F 79 14 107/66 94 11/22/17 15:38 11/22/17 15:38 11/22/17 15:38 11/22/17 15:38 11/22/17 15:38 Internal Medicine: Result - Labs CBC & Chem 7: 11/22/17 03:52 11/22/17 03:52 - ABG Interpretation ABG results: PT/INR, D-dimer PT 15.8 Seconds (9.4-12.1) H 11/17/17 11:24 - Attending Attestation Today patient feels better from a weakness standpoint but still not strong enough to get out of bed. PT worked with patient today feels she can use more inpatient therapy. She denies chest pain, shortness of breath, n/v, headache. Denies fevers/chills today. VS reviewed, she is afebrile today. BP and HR stable. MRSA screen negative, DC vancomycin H&H stable, no need for transfusion, recheck CBC Sepsis: pneumonia, vs hepatobiliary process: continue Zosyn, Vanc DC'd. RUQ ultrasound Anemia; iron deficiency. Continue iron supplementation and transfuse as needed Abdominal pain: negative CT of abdomen/pelvis, lower groin region bilaterally. She states this has been ongoing pain for months. Abdominal exam unremarkable. History of VTEs: may need to restart Eliquis when H&H stable, may need Heme/Onc recs on this. May need follow-up chest x-ray based on 11/19/17 chest x-ray, either during this hospital admission or one month after discharge. Disposition: need to monitor sepsis, strength (PT/OT evaluation)
[2017-11-22] MEDS: Acetaminophen 325 MG TABLET PO PRN (11:44)
[2017-11-22 11:59] LABS: Adenovirus Not Detected (Not Detect); Bordetella Pertussis Not Detected (Not Detect); Chlamydophila pneumoniae Not Detected (Not Detect); Coronavirus 229E Not Detected (Not Detect); Coronavirus HKU1 Not Detected (Not Detect); Coronavirus NL63 Not Detected (Not Detect); Coronavirus OC43 Not Detected (Not Detect); Human Metapneumovirus Not Detected (Not Detect); Human Rhinovirus/Enterovirus Not Detected (Not Detect); Influenza A Subtype 2009 H1 Not Detected (Not Detect); Influenza A Untypeable Not Detected (Not Detect); Influenza B Not Detected (Not Detect); Mycoplasma pneumoniae Not Detected (Not Detect); Parainfluenza Virus 1 Not Detected (Not Detect); Parainfluenza Virus 2 Not Detected (Not Detect); Parainfluenza Virus 3 Not Detected (Not Detect); Parainfluenza Virus 4 Not Detected (Not Detect); Respiratory Syncytial Virus Not Detected (Not Detect)
[2017-11-22] MEDS: *HR* LORazepam 0.5 MG TABLET PO PRN (15:47)
[2017-11-22] MEDS: traMADol 50 MG TABLET PO PRN (16:58)
[2017-11-23] MEDS: Piperacillin/Tazobactam 3.375 GM in 0.9 % Sodium Chloride Mini Bag 100 ML IVPB SCH ×3 (00:14→16:40)
[2017-11-23] MEDS: traMADol 50 MG TABLET PO PRN ×2 (00:17→16:41)
[2017-11-23 00:31] LABS: Basophils % 0.4 %; Eosinophils # 0.1 K/mcL (0.0-0.6); Eosinophils % 1.8 %; Hematocrit 29.1 % (35.3-44.9); Lymphocytes % 18.1 %; Mean Corpuscular HGB Conc 27.5 g/dL (31.6-35.5); Mean Corpuscular Hemoglobin 20.4 pg (28.0-33.3); Mean Platelet Volume 10.3 fL (9.4-12.4); Monocytes % 16.9 %; Nucleated Red Blood Cells 0.4 /100 WBC (0); Platelet Count 353 K/mcL (140-400); Red Blood Count 3.93 M/mcL (3.82-4.97); Red Cell Distribution Width 24.2 % (11.5-14.5); Segmented Neutrophils % 52.8 %
[2017-11-23 00:49] LABS: BUN/Creatinine Ratio 14 (6-26); Blood Urea Nitrogen 13 mg/dL (8-23); Calcium 8.2 mg/dL (8.6-10.3); Carbon Dioxide 21 mEq/L (23-29); Chloride 108 mEq/L (98-107); Glucose 118 mg/dL (70-105); Osmolality,Calculated 285 (280-300); Potassium 3.8 mEq/L (3.5-5.1); Sodium 137 mEq/L (136-145); eGFR For Non-African Americans 59 (> 60)
[2017-11-23 01:11] LABS: Anisocytosis 2+ (Not Present); Hypochromasia Present (Not Present)
[2017-11-23 01:12] LABS: Large Platelets Present (Not Present); Macrocytosis Present (Not Present); Microcytosis Present (Not Present); Platelet Estimate Normal (Normal); Poikilocytosis 2+ (Not Present); Polychromasia 1+ (Not Present)
[2017-11-23] MEDS: Acetaminophen 325 MG TABLET PO PRN ×2 (04:39→22:16)
[2017-11-23] MEDS: Aspirin Enteric Coated 81 MG Tablet PO SCH (10:01)
[2017-11-23] MEDS: Loratadine 10 MG TABLET PO SCH (10:01)
[2017-11-23] MEDS: Sucralfate 1 GM TABLET PO SCH ×4 (10:01→20:38)
[2017-11-23] MEDS: Gabapentin 300 MG CAPSULE PO SCH ×4 (10:01→20:40)
[2017-11-23] MEDS: Famotidine 20 MG TABLET PO SCH ×2 (10:02→20:37)
[2017-11-23] MEDS: Iron Sucrose Complex 200 MG in 0.9 % Sodium Chloride 100 ML IVPB SCH (10:17)
--- NOTE | 2017-11-23 10:29 | Oncology Inp Progress Note ---
<Karan Salazar - Last Filed: 11/23/17 10:37> Date of Encounter: 11/23/17 Time of Encounter: 10:29 (1) Polycythemia vera Status: Chronic Assessment and plan: Patient's anemia 2nd to iron deficiency rather than myelosuppression from hydroxyurea. platelet count and WBC count normalized Patient underwent EGD with findings of LA grade D esophagitis with no active bleeding. Colonoscopy not completed Patient will need to address source of iron deficiency, rule out lower GI bleed before she can be started on anticoagulation again She can be restarted on hydroxyurea to prevent thrombocytosis (patients platelets have been in the 4 million range in the past). hydroxyurea can also cause decrease appetite which patient reports. Can trial appetite stimulating agents. Oncology: Subj Interval history: Patient continues to have fevers, etiology unclear. Underwent CT abdomen/pelvis with follow up Abdominal US without any acute findings. Patient complains of dysuria. Reports diarrhea and abdominal pain have resolved.Denies SOB and chest pain. She laso reports poor appetite. - Constitutional Vitals: Vital Signs Temp Pulse Resp BP Pulse Ox 11/23/17 07:11 99.0 F 86 15 117/64 94 11/23/17 04:17 102.8 F H 101 15 128/75 92 11/22/17 19:00 98.1 F 87 15 120/75 94 11/22/17 15:38 98.3 F 79 14 107/66 94 Intake and Output 11/22/17 11/23/17 11/23/17 23:59 07:59 15:59 Intake Total 160 / 160 200 / 200 Output Total 200 / 200 Balance 160 / 160 0 / 0 Intake: IV Fluids 100 / 100 100 / 100 Zosyn 3.375 GM In 0.9 % Sodium 100 / 100 100 / 100 Chloride (Mini-Bag +) 100 ML @ 25 mls/hr IVPB Q8HR [facility] Rx#: [id number] Oral 60 / 60 100 / 100 Output: Urine 200 / 200 Other: Meal Dinner Percent of Meal Consumed 0% # Bowel Movements 0 Blood Glucose* 117 - Additional findings Additional findings: General: without distress Heart: Regular rate and rhythm with no murmur Lungs: Clear to auscultation bilaterally Abdomen: Soft nontender, nondistended positive bowel sounds Skin: warm and dry, absent rash Extremities: Absent pedal edema, Neuro: alert oriented x 3 Vascular: Pedal and radial pulses 2 out of 4 Oncology: Obj Data - Labs CBC & Chem 7: 11/23/17 00:12 11/23/17 00:12 Labs: Laboratory Results - last 24 hr 11/23/17 11/23/17 00:12 00:12 WBC 5.7 RBC 3.93 Hgb 8.0 L Hct 29.1 L MCV 74.0 L MCH 20.4 L MCHC 27.5 L RDW 24.2 H Plt Count 353 MPV 10.3 Immature Gran % 10.0 H Seg Neutrophils % 52.8 Lymphocytes % 18.1 Monocytes % 16.9 Eosinophils % 1.8 Basophils % 0.4 Neutrophils # 3.0 Lymphocytes # 1.0 Monocytes # 1.0 Eosinophils # 0.1 Basophils # 0.0 Nucleated RBCs/100 WBC 0.4 H Platelet Estimate Normal Large Platelets Present A Polychromasia 1+ A Hypochromasia Present A Poikilocytosis 2+ A Anisocytosis 2+ A Microcytosis Present A Macrocytosis Present A Smear Path Review See Below Sodium 137 Potassium 3.8 Chloride 108 H Carbon Dioxide 21 L BUN 13 Creatinine 0.94 Est GFR ( Amer) > 60 Est GFR (Non-Af Amer) 59 L BUN/Creatinine Ratio 14 Glucose 118 H Calculated Osmolality 285 Calcium 8.2 L - Impressions Impressions Abdomen Ultrasound 11/23/17 00:00 IMPRESSION: 1. Cholelithiasis without sonographic evidence of acute cholecystitis. Specifically, the distension, pericholecystic fluid, and wall thickening seen on prior CT appears largely resolved. 2. Common bile duct is at the upper limits of normal for the patient's age, measuring 7 mm. If there is clinical concern or laboratory evidence of biliary obstruction, dedicated MRCP can be considered. D/ / 11/23/2017 08:14:37 Beth Martin MD / Sandi Cabrales Interpreting Provider: Beth Martin MD - ABG Interpretation ABG results: PT/INR, D-dimer PT 15.8 Seconds (9.4-12.1) H 11/17/17 11:24 Consult Discharge Plan - Plan Referrals: Silver Díaz MD [Primary Care Provider] - 12/03/17 1:30 pm <Jameson Sue - Last Filed: 11/25/17 13:16> Date of Encounter: 11/23/17 (1) Anemia Status: Acute Assessment and plan: seen and examined patient and agrede with above. Initially, patient was declining colonoscopy. After further discussion, she eventually understood that it is necessary to evaluate for a bleeding source given her significant iron deficiency anemia. Continue hydrea for ET. Qualifiers: Anemia type: iron deficiency Iron deficiency anemia type: unspecified iron deficiency Qualified Code(s): D50.9 - Iron deficiency anemia, unspecified - Constitutional Vitals: Vital Signs Temp Pulse Resp BP Pulse Ox 11/24/17 14:25 99.0 F 85 14 138/80 93 Intake and Output 11/25/17 11/25/17 11/25/17 00:59 08:59 16:59 Intake Total 110 / 110 Balance 110 / 110 Intake: IV Fluids 110 / 110 Venofer 200 MG In 0.9 % Sodium 110 / 110 Chloride 100 ML @ 200 mls/hr IVPB DAILY [facility] Rx#:[id number] Oncology: Obj Data - Labs CBC & Chem 7: 11/24/17 12:53 11/24/17 04:47 Labs: Laboratory Results - last 24 hr 11/24/17 11/24/17 11/24/17 12:53 12:53 12:53 Hgb 7.9 L Hct 28.8 L Hep Bs Antigen Nonreactive HIV Ag/Ab Combo Qual Nonreactive Infectious [place] Assay Negative - ABG Interpretation ABG results: PT/INR, D-dimer PT 15.8 Seconds (9.4-12.1) H 11/17/17 11:24
--- NOTE | 2017-11-23 10:31 | Internal Med Progress Note ---
<Amita Hough P - Last Filed: 11/23/17 16:49> Date of Encounter: 11/23/17 Time of Encounter: 09:00 - Assessment and plan (1) Diarrhea Current Visit: No Status: Acute Assessment and plan: We are working for Black stool and dropping of Hemoglobin with Upper GI Endoscopy and Colonoscopy to find out any bleeding points and latest UGI endoscopy showed only reflux Esophagitis without any bleeding points. Colonoscopy awaited CT abdomen and pelvis ordered to r/o acute abdominal pathology. Report shows cholilithiasis and biliary slough, periportal LN enlargement, splenomegaly and right lower Lobe atelectasis and mild plural effusion Closely monitoring for impending colangitis and on IV antibiotics : Piperacillin and Tozabactum Qualifiers: Diarrhea type: unspecified type Qualified Code(s): R19.7 - Diarrhea, unspecified (2) Anemia Current Visit: Yes Status: Acute Assessment and plan: We did Upper GI endoscopy and colonoscopy for any bleeding points . Latest UGI endoscopy report shows mild esophagitis without any active bleeding points . She is on Iron therapy Hydroxyurea is on hold : Consulted with Hematooncologist . Daily monitoring of CBC with differential and RBC morphology Todays WBC and RBC count has been increased as compared to before . Her HB and hematocrit has also been increased Qualifiers: Anemia type: iron deficiency Iron deficiency anemia type: chronic blood loss Qualified Code(s): D50.0 - Iron deficiency anemia secondary to blood loss (chronic) (3) Weakness Current Visit: Yes Status: Acute Assessment and plan: She has h/o generalized weakness without h/o weight loss . It might be due to anaemia and dehydration. (4) Cystitis Current Visit: No Status: Suspected Assessment and plan: She has not any fresh complain about urination , no burning micturition or blood in urine , She is on IV antibiotics: (5) DVT prophylaxis Current Visit: Yes Status: Acute Assessment and plan: She is on DVT prophylaxis Eliquis No swelling of lower legs and signs of coagulopathy noted (6) Pneumonia Current Visit: Yes Status: Acute Assessment and plan: She has mild cough and scattered rales found in her lower both side right> left chest on examination. Xray chest shows : atelectasis in her right lower lobe with minimal effusion. 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 Her heart rate fluctuates 101 to 80 She is on Antibiotics : Piperacillin and Tozabactum 3.375 Qualifiers: Qualified Code(s): J18.9 - Pneumonia, unspecified organism (7) Fever Current Visit: Yes Status: Suspected Assessment and plan: We did Chest Xray to r/o pneumonia : report shows mild atelectasis in Right middle lobe without any evidence of consolidation. She is on Ceftriaxone 2 gram IV Her latest Temp record 99 F appreciate Infectious disease physician work up and recommendation. Blood cultures drawn 11/21/[address] head showed acute on chronic maxillary sinusitis, but patient is asymptomatic. Planned for CTA of the chest to evaluate for PE given the patient's history of PCV. Planned for ESR, CRP, HENRIQUE, and rheumatoid factor. Continue Zosyn 3.375 grams IV Q8H. Qualifiers: Fever type: unspecified Qualified Code(s): R50.9 - Fever, unspecified - Subjective Interval history: This 72 years old female admitted here for generalized weakness and she was case of Polycythemia Vera on Hydroxyurea and multiple thomboembolism on Eliquis. Today is 6th POD . She denies any significant weight loss . 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 due to hydroxyurea .. She is on Iron therapy. She denies any mucous, blood in her stool. She has had mild abdominal cramps and bloating yesterday , but has improved today . . She has recorded temperature 102.8 F Today morning at 4 AM and comes down late morning . She denies subjective fever, vomiting, nausea, abdominal distension. She also denies any cough , SOB, chest pain or tightness. Her chest xray report shows mild atelecsis in right lower lobe and UGI endoscopy done today shows Grade D esophagitis..Her abdominal and pelvis CT without contrast report shows : Cholilithiasis and biliary slough enlarged periportal LN, splenomegaly , pleural effusion and atelectasis right lower chest . She looks a little bit more happy today , smilling , sweating but was afebrile during examination. She is a less eater , but appetite is not good after her illness. - Constitutional Vitals: Temp Pulse Resp BP Pulse Ox 99.0 F 86 15 117/64 94 11/23/17 07:11 11/23/17 07:11 11/23/17 07:11 11/23/17 07:11 11/23/17 07:11 General appearance: Present: cooperative, A&O X 3, no acute distress, answers questions appropriately Internal Medicine: Result - Labs CBC & Chem 7: 11/23/17 00:12 11/23/17 00:12 Labs: Short CBC 11/23/17 Range/Units 00:12 WBC 5.7 (4.3-11.1) K/mcL Hgb 8.0 L (11.5-15.4) g/dL Hct 29.1 L (35.3-44.9) % Plt Count 353 (140-400) K/mcL Neutrophils # 3.0 (1.6-8.9) K/mcL BMP 11/23/17 00:12 Sodium 137 Potassium 3.8 Chloride 108 H Carbon Dioxide 21 L BUN 13 Creatinine 0.94 Glucose 118 H Calcium 8.2 L - ABG Interpretation ABG results: PT/INR, D-dimer PT 15.8 Seconds (9.4-12.1) H 11/17/17 11:24 - Impressions Impressions Abdomen Ultrasound 11/23/17 00:00 IMPRESSION: 1. Cholelithiasis without sonographic evidence of acute cholecystitis. Specifically, the distension, pericholecystic fluid, and wall thickening seen on prior CT appears largely resolved. 2. Common bile duct is at the upper limits of normal for the patient's age, measuring 7 mm. If there is clinical concern or laboratory evidence of biliary obstruction, dedicated MRCP can be considered. D/ / 11/23/2017 08:14:37 Beth Martin MD / Sandi Cabrales Interpreting Provider: Beth Martin MD - VTE Documentation of Mechanical Device: Intermittent pneumatic compression device Consult Discharge Plan - Plan Referrals: Silver Díaz MD [Primary Care Provider] - 12/03/17 1:30 pm <Raquel Romo - Last Filed: 11/23/17 19:45> Date of Encounter: 11/23/17 - Assessment and plan (1) Polycythemia vera Current Visit: Yes Status: Chronic (2) UTI (urinary tract infection) Current Visit: Yes Status: Acute Qualifiers: Urinary tract infection type: acute cystitis Hematuria presence: without hematuria Qualified Code(s): N30.00 - Acute cystitis without hematuria - Constitutional Vitals: Temp Pulse Resp BP Pulse Ox 98.9 F 82 18 147/80 94 11/23/17 15:09 11/23/17 15:09 11/23/17 15:09 11/23/17 15:09 11/23/17 15:09 Internal Medicine: Result - Labs CBC & Chem 7: 11/23/17 00:12 11/23/17 00:12 Labs: Short CBC 11/23/17 Range/Units 00:12 WBC 5.7 (4.3-11.1) K/mcL Hgb 8.0 L (11.5-15.4) g/dL Hct 29.1 L (35.3-44.9) % Plt Count 353 (140-400) K/mcL Neutrophils # 3.0 (1.6-8.9) K/mcL BMP 11/23/17 00:12 Sodium 137 Potassium 3.8 Chloride 108 H Carbon Dioxide 21 L BUN 13 Creatinine 0.94 Glucose 118 H Calcium 8.2 L - ABG Interpretation ABG results: PT/INR, D-dimer PT 15.8 Seconds (9.4-12.1) H 11/17/17 11:24 - Impressions Impressions Abdomen Ultrasound 11/23/17 00:00 IMPRESSION: 1. Cholelithiasis without sonographic evidence of acute cholecystitis. Specifically, the distension, pericholecystic fluid, and wall thickening seen on prior CT appears largely resolved. 2. Common bile duct is at the upper limits of normal for the patient's age, measuring 7 mm. If there is clinical concern or laboratory evidence of biliary obstruction, dedicated MRCP can be considered. D/ / 11/23/2017 08:14:37 Beth Martin MD / Sandi Cabrales Interpreting Provider: Beth Martin MD Chest CTA 11/23/17 16:37 IMPRESSION: Limited evaluation of the segmental and subsegmental pulmonary arterial branches. No central pulmonary embolism. Very small left pleural effusion with adjacent airspace disease, atelectasis versus less likely pneumonia. Very small pericardial effusion, similar when compared to the previous exam. Sequela of old granulomatous disease. D/ / Ken Pittman MD / Ken Pittman MD Interpreting Provider: Ken Pittman MD - Attending Attestation I examined this patient and my medical decision-making was reviewed with the Resident Physician. I agree with the documented findings, disposition and treatment plan as described except to the extent set forth below.
--- NOTE | 2017-11-23 13:20 | Infectious Disease Consult ---
Date of Encounter: 11/23/17 Time of Encounter: 13:17 Assessment and Plan (1) Fever Status: Suspected Assessment and plan: Etiology unclear: infectious vs. autoimmune vs. other. Clinically, the patient does not have an identified source of infection. Blood cultures drawn 11/21/17 are NGTD. Urinalysis was contaminated. CT of the abdomen and pelvis and abdominal ultrasound was negative for infectious etiology and abdominal exam benign. CXR showed possible new airspace disease or atelectasis. RIP negative. CT head showed acute on chronic maxillary sinusitis, but patient is asymptomatic. Get CTA of the chest to evaluate for PE given the patient's history of PCV. Check ESR, CRP, HENRIQUE, and rheumatoid factor. Continue Zosyn 3.375 grams IV Q8H. Duration of treatment depends on the clinical picture. Monitor renal function and dose-adjust antibiotics. Qualifiers: Fever type: unspecified Qualified Code(s): R50.9 - Fever, unspecified (2) Leukopenia Status: Acute Assessment and plan: Etiology unclear: sepsis vs. immunosuppression secondary to hydroxyurea. Had monocytosis on admission as well. Resolved. Continue to trend. Qualifiers: Neutropenia type: unspecified Qualified Code(s): D70.9 - Neutropenia, unspecified (3) JULEE (acute kidney injury) Status: Acute Assessment and plan: Likely pre-renal, secondary to poor PO intake, vs. sepsis. Resolved. Continue to trend. (4) Anemia Status: Acute Assessment and plan: Appears chronic. EGD negative for bleeding. Hem/Onc consulted and following. Qualifiers: Anemia type: iron deficiency Iron deficiency anemia type: chronic blood loss Qualified Code(s): D50.0 - Iron deficiency anemia secondary to blood loss (chronic) (5) Diarrhea Status: Acute Assessment and plan: Reports several loose stools since starting antibiotics. C. diff checked and was negative. Start probiotics BID. Check GI panel. Qualifiers: Diarrhea type: unspecified type Qualified Code(s): R19.7 - Diarrhea, unspecified (6) Elevated alkaline phosphatase level Status: Acute Assessment and plan: Etiology unclear. CT abdomen and pelvis showed licha-portal adenopathy and edema which could be due to the periportal adenopathy but there are also other possible causes which include hepatitis and cholangitis. Gallbladder distention with cholelithiasis and sludge also noted, but no clear evidence of acute cholecystitis. Abdominal UTS showed cholelithiasis without cholecystitis and CBD dilation at the upper limit of normal. If clinical/lab evidence of biliary obstruction, dedicated MRCP is recommended. (7) History of polycythemia vera Status: Acute Assessment and plan: Follows with [facility]. On hydroxyurea and Eliquis prior to admission. (8) Weakness Status: Acute Infectious Disease HPI - Data of Consult Patient: new to practice Consult date: 11/23/17 Requesting Physician: Melquiades Sauer MD Primary Care Provider: Silver Díaz MD - Consult Narrative Reason for consult: Sepsis History of present illness: Ms. Stoddard is a 72 year old female with a past medical history of polycythemia vera currently on hydroxyurea and Eliquis, hypertension, DVT, PE, and CVA. The patient was admitted to the hospital November 17 for UTI and weakness. We are consulted on November for further recommendations for sepsis. Briefly, the patient is a 72-year-old female with past medical history as stated above. She presented to the ER on the day of admission with complaints of generalized weakness and poor PO intake x 1 week. Apparently, the patient had been treated previously for a urinary tract infection with a course of oral ciprofloxacin. She had a urine culture on November 13 that was grossly contaminated. Upon arrival to the ER, the patient was afebrile. Her blood pressure was a little low, but she was otherwise hemodynamically stable. Her white blood cell count was low at 3.7 with 22% monocytes. Her hemoglobin was low at 8. Serum creatinine was elevated at 2.57. Total bili was high at 1.3, but AST and ALTs were normal. Her alkaline phosphatase was elevated at 175. Urinalysis was positive for white blood cells, many epithelial cells x-ray showed findings consistent with atelectasis. She E acute intracranial abnormality, but did show acute on chronic maxillary sinusitis, chronic microvascular ischemia, and a focal right occipital encephalomalacia consistent with remote ischemic event. She was started empirically on IV Rocephin for a presumed urinary tract infection Since admission, the patient's white blood cell count has improved. She continues to be anemic, which appears chronic. She had a retroperitoneal ultrasound that was negative for hydronephrosis, but did show cholelithiasis with some pericholecystic fluid. Since admission, the patient has continued to have intermittent fevers with a MAXIMUM TEMPERATURE of 102.8 in the past 24 hours. She had a repeat chest x-ray on November 19 that showed a possible new airspace disease or atelectasis. GI was consulted due to concern for possible GI bleed due to dark tarry stools and anemia. She had an EGD that showed esophagitis. The patient developed diarrhea after admission so C. difficile was checked and was negative. Her acute kidney injury has resolved. Blood cultures were obtained November 21 and are no growth to date. She had a CT of the abdomen and pelvis that showed periportal adenopathy concerning for hepatitis versus cholangitis. MRSA screen was negative. Respiratory infectious panel was negative. Strep pneumococcal and legionella urinary antigens were negative. She has a urine culture that is pending. She had an abdominal ultrasound that showed cholelithiasis without cholecystitis, but did show the common bile duct is at the upper limits of normal be further evaluated with an MRCP if the patient is symptomatic. Currently, the patient is on IV Zosyn. She did receive a dose of IV Vanc today 1. We have been asked to evaluate and make further recommendations. During my exam today, the patient states that she feels better. She reports subjective fevers and chills with profuse sweating when her fever would break at home. She denies headache or neck pain. She reports feeling generally weak before coming to the hospital. She denies URI symptoms, chest pain, or cough. She reports some shortness of breath. She denies nausea or vomiting, but states she had a very poor appetite. She reports having some suprapubic/lower abdominal that she described as aching that has resolved. She also states she was having some bilateral groin pain that felt like her underwear were too tight , but that has resolved as well. She denies any dysuria, urinary frequency, or hematuria. She denies any dental pain, oral thrush, or skin rashes/lesions. The patient lives at home with her son. She is retired. She denies any tobacco, alcohol, or illicit drug use. She denies any recent travel outside the [facility]. She denies pet/animal exposure. She denies any chronic infectious issues. CC: Melquiades Sauer MD Past Med Surg Social Fam HX - Past Medical History Attestation: Yes The following information was validated with the patient. Source: patient, old records reviewed, nursing notes reviewed Medical history: hypertension, other Additional medical history: polycythemia vera Psychiatric history: anxiety, depression - Past Surgical History Surgical History: heart valve replacement, herniorrhaphy Additional surgical history: b/l foot surgery. "covered hole in heart" - Social History Smoking Status: Never smoker Smokeless Tobacco Status: No Alcohol use: none Drug use: none Occupational status: retired Current living situation: Home, With Family Activity Level: Independent ambulation Recent Out of Country Travel Within the Last 8 Weeks: No Exposure or Possible Exposure to Illness During Travel: No - Family History Mother History Unknown: Yes Name: Janay Family Member Ethnicity: Non- Living Status: Age at : 75 Cause of : "lungs" Hx Family Cardiac Disorders: No Hx Family Respiratory Disorders: Yes Hx Family Cancer: No Hx Family GI Disorders: No Hx Family Genitourinary Disorders: No Hx Family Endocrine Disorder: No Hx Family Musculoskeletal Disorders: No Hx Family Neurologic Disorders: No Hx Family HEENT Disorders: No Hx Family Autoimmune Disorders: No Hx Family Reproductive Disorders: No Hx Family Psychosocial Disorders: No Hx Family Medical Disorders: No Father History Unknown: Yes Name: Barrett Family Member Ethnicity: Non- Living Status: Age at : 59 Cause of : heart attack Hx Family Cardiac Disorders: Yes Hx Family Respiratory Disorders: Yes Hx Family Cancer: No Hx Family GI Disorders: No Hx Family Genitourinary Disorders: No Hx Family Endocrine Disorder: No Hx Family Musculoskeletal Disorders: No Hx Family Neuromuscular Disorders: No Hx Family Neurologic Disorders: No Hx Family HEENT Disorders: No Hx Family Autoimmune Disorders: No Hx Family Reproductive Disorders: No Hx Family Psychosocial Disorders: No Hx Family Medical Disorders: No Infectious Disease-CN:Meds Amlodipine Besylate 10 mg PO DAILY 10/11/17 [History] Apixaban [Eliquis] 5 mg PO BID 10/11/17 [History] Aspirin [Lo-Dose Aspirin EC] 81 mg PO DAILY 10/11/17 [History] Atorvastatin [Lipitor] 40 mg PO HS 10/11/17 [History] Gabapentin [Neurontin] 300 mg PO QPM 10/11/17 [History] Gabapentin [Neurontin] 600 mg PO QAM 10/11/17 [History] Gabapentin [Neurontin] 900 mg PO HS 10/11/17 [History] Hydroxyurea 500 mg PO DAILY 10/11/17 [History] Lisinopril [Zestril] 40 mg PO DAILY 10/11/17 [History] Loratadine [Claritin] 10 mg PO DAILY 10/11/17 [History] Omeprazole [PriLOSEC] 20 mg PO HS 10/11/17 [History] Ranitidine HCl [Acid Outpatient Physical Therapist] 150 mg PO BID 10/11/17 [History] Tizanidine HCl 4 mg PO HS PRN 10/11/17 [History] Acetaminophen [Tylenol] 650 mg PO Q6HR PRN tablet 10/14/17 [Rx] Docusate [Colace] 100 mg PO BID PRN capsule 10/14/17 [Rx] Metoprolol XL (24 HR) Succ [Toprol Xl] 50 mg PO DAILY tab.er.24h 10/14/17 [Rx] HYDROcodone/Acet 7.5/325 mg [[place] 7.5-325 mg] 1 - 2 tab PO Q8H PRN 11/17/17 [ History] 3 Allergy/AdvReac Type Severity Reaction Status Date / Time No Known Allergies Allergy Verified 10/11/17 15:17 All systems: reviewed and no additional remarkable complaints except as stated Exam - Constitutional Vitals: Temp Pulse Resp BP Pulse Ox 97.7 F 80 15 122/73 93 11/23/17 11:14 11/23/17 11:14 11/23/17 11:14 11/23/17 11:14 11/23/17 11:14 General appearance: average body habitus, cooperative, no acute distress - Head Head exam: Present: atraumatic, normal inspection, normocephalic - Eye Eye exam: Present: EOMI, normal appearance, PERRL Pupils: Present: normal accommodation - ENT ENT exam: Present: mucous membranes moist - Neck Neck exam: Present: normal inspection - Respiratory Respiratory exam: Present: CTAB. Absent: rales, respiratory distress, rhonchi, wheezes - Cardiovascular Cardiovascular exam: Present: RRR, +S1, +S2 - GI/Abdominal GI/Abdominal exam: Present: normal bowel sounds, soft. Absent: distended, tenderness - Extremities Exam Extremities exam: Present: normal inspection. Absent: joint swelling, pedal edema, tenderness - Back Exam Back exam: Present: normal inspection. Absent: CVA tenderness (L), CVA tenderness (R), paraspinal tenderness, vertebral tenderness - Neurological Exam Neurological exam: Present: alert, oriented X3, no focal deficits - Psychiatric Psychiatric exam: Present: normal affect, normal mood - Skin Skin exam: Present: dry, intact, normal color, warm Infectious Disease CN: Results - Labs CBC & Chem 7: 11/23/17 00:12 11/23/17 00:12 Cultures: Cultures 11/22/17 15:00 Legionella Antigen - Final Urine,Clean Catch Streptococcus pneumoniae Antigen (M - Final - VTE Documentation of Mechanical Device: Intermittent pneumatic compression device Consult Discharge Plan - Plan Referrals: Silver Díaz MD [Primary Care Provider] - 12/03/17 1:30 pm - Attending Attestation I examined this patient and my medical decision-making was reviewed with the Resident Physician. I agree with the documented findings, disposition and treatment plan as described except to the extent set forth below. This is an addendum to original report dictated by Rubia Vazquez CNP. Please refer to Rubia's note for full detail. Patient is 72-year-old woman who was admitted to [place] [facility] on November 17 for weakness and urinary tract infection. We are consulted for sepsis and antibiotics recommendations. Patient with history of polycythemia vera with history of DVT and PE in the past currently on hydroxyurea and eliquis. Patient also tells me she has had history of [place] and had surgical repair for and chronic anemia requiring iron infusion was admitted for what is thought to be a urinary tract infection and weakness. Patient has been spiking fever from November 18 - November 23. Her MAXIMUM TEMPERATURE was 1 of 2.8. Her fever curve if anything is getting worse. Patient is review of systems was only positive for diarrhea and he is having some right shoulder pain where she fell. So far workup revealed abnormal CT findings concerning for chondritis or hepatitis or cholelithiasis and cholecystitis. Chest x-ray was reviewed and nonrevealing but there were some subtle findings concerning for new airspace disease. C. difficile has also been ruled out. Respiratory infectious panel was non- revealing. Blood cultures from 81 have been negative. urine legionella and pneumococcal antigen were negative. Patient was initially started on vancomycin and Zosyn and vancomycin was stopped on Zosyn and has been continued and were asked to evaluate the patient and make further recommendations. Assessment and plan: Sepsis: Had 3 SIRS criteria including tachycardia, fever and leukopenia. Etiology not clear. Could be secondary to intra-abdominal process or pneumonia. So far workup has been negative. Other concern is she is having some right shoulder pain. No signs of septic arthritis. Joint is not warm or erythematosus. There is decreased range of motion but is not impressive. Patient was also having a lot of diarrhea. C. difficile has been negative. Recommend repeating LFTs, lipase, amylase. If LFTs are elevated check hepatitis A Agree with CT chest Continue Zosyn for now duration of treatment depends on clinical picture and findings.
[2017-11-23] MEDS ORDERED: Isovue-370 500 ML INFUS..BTL IV ONE (16:37)
[2017-11-23] MEDS: Ondansetron 4 MG/2 ML VIAL IVP PRN (17:45)
[2017-11-24] MEDS: Piperacillin/Tazobactam 3.375 GM in 0.9 % Sodium Chloride Mini Bag 100 ML IVPB SCH ×3 (00:47→16:17)
[2017-11-24 05:11] LABS: Basophils % 0.2 %
[2017-11-24 05:12] LABS: Eosinophils % 0.8 %; Hematocrit 27.9 % (35.3-44.9); Hemoglobin 7.7 g/dL (11.5-15.4); Immature Granulocytes % 11.3 % (0-4); Lymphocytes # 0.9 K/mcL (0.6-4.6); Lymphocytes % 17.1 %; Mean Corpuscular HGB Conc 27.6 g/dL (31.6-35.5); Mean Corpuscular Hemoglobin 20.5 pg (28.0-33.3); Mean Corpuscular Volume 74.4 fL (83.0-100.0); Mean Platelet Volume 10.9 fL (9.4-12.4); Monocytes # 0.9 K/mcL (0.0-1.3); Neutrophils # 2.9 K/mcL (1.6-8.9); Platelet Count 325 K/mcL (140-400); Red Blood Count 3.75 M/mcL (3.82-4.97); Red Cell Distribution Width 24.1 % (11.5-14.5); Segmented Neutrophils % 54.6 %
[2017-11-24 05:27] LABS: BUN/Creatinine Ratio 16 (6-26); Blood Urea Nitrogen 14 mg/dL (8-23); Calcium 8.2 mg/dL (8.6-10.3); Carbon Dioxide 23 mEq/L (23-29); Chloride 111 mEq/L (98-107); Glucose 111 mg/dL (70-105); Osmolality,Calculated 293 (280-300); Potassium 3.5 mEq/L (3.5-5.1); Sodium 141 mEq/L (136-145); eGFR For Non-African Americans > 60 (> 60)
[2017-11-24 06:35] LABS: Anisocytosis 2+ (Not Present); Hypochromasia Present (Not Present); Large Platelets Present (Not Present); Microcytosis Present (Not Present); Ovalocytes 1+ (Not Present); Platelet Estimate Normal (Normal); Poikilocytosis 1+ (Not Present)
[2017-11-24] MEDS: Famotidine 20 MG TABLET PO SCH (08:17)
[2017-11-24] MEDS: Aspirin Enteric Coated 81 MG Tablet PO SCH (08:17)
[2017-11-24] MEDS: Gabapentin 300 MG CAPSULE PO SCH ×2 (08:17→14:34)
[2017-11-24] MEDS: Sucralfate 1 GM TABLET PO SCH ×3 (08:17→16:16)
[2017-11-24] MEDS: Loratadine 10 MG TABLET PO SCH (08:17)
[2017-11-24] MEDS: Iron Sucrose Complex 200 MG in 0.9 % Sodium Chloride 100 ML IVPB SCH (08:30)
[2017-11-24] MEDS: *HR* LORazepam 0.5 MG TABLET PO PRN ×2 (08:31→17:17)
[2017-11-24] MEDS: traMADol 50 MG TABLET PO PRN ×2 (08:31→17:17)
[2017-11-24] MEDS ORDERED: Hydroxyurea 500 MG CAPSULE PO SCH (09:00)
--- NOTE | 2017-11-24 09:16 | Internal Med Progress Note ---
Hospitalist Progress Note - Encounter Date of Encounter: 11/24/17 Time of Encounter: 09:44 - Subjective Interval History: Patient has complaints of shoulder pain after fall. She had fever overnight of 102.9, on Zosyn. She otherwise has no complaints - Exam Vitals: Temp Pulse Resp BP Pulse Ox 98.2 F 73 14 137/76 95 11/24/17 07:04 11/24/17 07:04 11/24/17 07:04 11/24/17 07:04 11/24/17 07:04 Exam: Gen: NAD, AAOx3 CVS: RRR Lungs: CTAB Abd: soft, nt/nd Ext: no edema, no cyanosis, Right shoulder slight tenderness with range of motion slightly limited due to pain. - Assessment and Plan (1) Weakness Current Visit: Yes Status: Acute Assessment and Plan: Appears to be multifactorial - Has iron deficiency anemia - Chronic disease of polycythemia vera, possibly related to therapy - Deconditioning - Continue PT/OT encourage ambulation, iron def replacement, further supportive care. (2) Fever Current Visit: Yes Status: Suspected Assessment and Plan: Unsure if this is infection related. There may be a pneumonia. Has been treated with appropriate antibiotic therapy, has been broadened coverage. On Zosyn day #2. Fevers overnight 102.9. Continue Zosyn. MRSA screen negative vanc DC'd HR and BP normal at this point Currently RF negative, CRP is elevated 111 and ESR elevated at 55. CTA negative for acute process or PE - Unclear etiology despite workup, will obtain CMV/EBV/HIV serologies - AST/ALT wnl, alk phos elevated. Obtain hep panel. - Monitor hemodynamics. - Follow-up BCx, currently NGTD - Follow-up auto immune workup. - if HENRIQUE positive will consider starting glucocorticoid - ID recommendations appreciated (3) Anemia Current Visit: Yes Status: Acute Assessment and Plan: Secondary to iron deficiency, seen on this admission and prior admission labs On last admission she was discharged with iron supplementation, still however low No source of bleed can be identified at this point EGD showed esophagitis, possibly related to chronic disease MCV low as well No colonoscopy was done Replacing with Venofer, may take time to replace iron stores - Continue Venofer - Repeat H&H this afternoon, will transfuse as needed - Continue to hold Xarelto for now - she has history of VTE but risks outweigh benefits at this moment. Discussed with Heme/Onc (4) Diarrhea Current Visit: No Status: Acute Assessment and Plan: C diff negative. GI panel follow-up Probiotics started (5) DVT prophylaxis Current Visit: Yes Status: Acute Assessment and Plan: SCD (6) Pneumonia Current Visit: Yes Status: Acute Assessment and Plan: Suspect possible pneumonia. Continue Zosyn. Blood cultures negative. Patient has sepsis unsure if this is pneumonia as true cause. (7) Right shoulder pain Current Visit: Yes Status: Acute Assessment and Plan: Secondary to fall at home. Today pain worsened. Shoulder x-ray to rule out fracture. (8) JULEE (acute kidney injury) Current Visit: Yes Status: Resolved Assessment and Plan: Likely caused by hypoperfusion from dehydration Has received 1L IVF Resolved (9) Polycythemia vera Current Visit: Yes Status: Chronic Assessment and Plan: Hydroxyurea resumed. Hematology following, recommendations appreciated. - Time Spent with Patient Total time spent is greater than 50% in coordination of care (as documented) at patient's floor/unit and/or counseling patient: Internal Medicine: Result - Labs CBC & Chem 7: 11/24/17 04:47 11/24/17 04:47 Labs: Short CBC 11/24/17 Range/Units 04:47 WBC 5.3 (4.3-11.1) K/mcL Hgb 7.7 L (11.5-15.4) g/dL Hct 27.9 L (35.3-44.9) % Plt Count 325 (140-400) K/mcL Neutrophils # 2.9 (1.6-8.9) K/mcL BMP 11/24/17 04:47 Sodium 141 Potassium 3.5 Chloride 111 H Carbon Dioxide 23 BUN 14 Creatinine 0.85 Glucose 111 H Calcium 8.2 L - ABG Interpretation ABG results: PT/INR, D-dimer PT 15.8 Seconds (9.4-12.1) H 11/17/17 11:24 - Impressions Impressions Abdomen Ultrasound 11/23/17 00:00 IMPRESSION: 1. Cholelithiasis without sonographic evidence of acute cholecystitis. Specifically, the distension, pericholecystic fluid, and wall thickening seen on prior CT appears largely resolved. 2. Common bile duct is at the upper limits of normal for the patient's age, measuring 7 mm. If there is clinical concern or laboratory evidence of biliary obstruction, dedicated MRCP can be considered. D/ / 11/23/2017 08:14:37 Beth Martin MD / Sandi Cabrales Interpreting Provider: Beth Martin MD Chest CTA 11/23/17 16:37 IMPRESSION: Limited evaluation of the segmental and subsegmental pulmonary arterial branches. No central pulmonary embolism. Very small left pleural effusion with adjacent airspace disease, atelectasis versus less likely pneumonia. Very small pericardial effusion, similar when compared to the previous exam. Sequela of old granulomatous disease. D/ / Ken Pittman MD / Ken Pittman MD Interpreting Provider: Ken Pittman MD - VTE Documentation of Mechanical Device: Intermittent pneumatic compression device Consult Discharge Plan - Plan Referrals: Silver Díaz MD [Primary Care Provider] - 12/03/17 1:30 pm (2) Fever Qualifiers: Fever type: unspecified Qualified Code(s): R50.9 - Fever, unspecified (3) Anemia Qualifiers: Anemia type: iron deficiency Iron deficiency anemia type: chronic blood loss Qualified Code(s): D50.0 - Iron deficiency anemia secondary to blood loss ( chronic) (4) Diarrhea Qualifiers: Diarrhea type: unspecified type Qualified Code(s): R19.7 - Diarrhea, unspecified (6) Pneumonia Qualifiers: Qualified Code(s): J18.9 - Pneumonia, unspecified organism
[2017-11-24] MEDS: OXYCODONE Oral CONC 10 MG/0.5 ML ORAL.SYG SL PRN (11:34)
[2017-11-24 13:12] LABS: Hematocrit 28.8 % (35.3-44.9); Hemoglobin 7.9 g/dL (11.5-15.4)
--- NOTE | 2017-11-24 13:47 | Discharge Summary ---
- NOTES TO OUTPATIENT PROVIDER Notes to Outpatient Provider: - Anemia: No PRBC required, but currently receiving Venofer day #2. - Xarelto held as of now due to iron deficiency anemia and bleeding not fully ruled out. EGD done, no colonoscopy done. - Fever unknown cause: infection, autoimmune. Labs pending. Consider ID consult , repeat procal (1.05), CRP (111). - Hydroxyurea resumed per recs of Heme/Onc. - PT/OT for weakness. Orders not resulted at time of discharge: Pending orders 11/24/17 04:47 HENRIQUE IgG LENNY rflx IFA AM 0400 11/24/17 12:53 HIV-1&2 Antibody & p24 Ag Routine Hepatitis Prof.(Routine A,B,C) Routine Monotest Reflex EBV VCA IgM [SER] Routine 11/24/17 13:00 CMV Qualitative PCR (pos neg) Routine Date of Encounter: 11/24/17 Time of Encounter: 13:43 - Discharge Diagnosis (1) Weakness Priority: Primary Status: Acute (2) Fever Priority: Secondary Status: Suspected Qualifiers: Fever type: unspecified Qualified Code(s): R50.9 - Fever, unspecified (3) Anemia Priority: Secondary Status: Acute Qualifiers: Anemia type: iron deficiency Iron deficiency anemia type: chronic blood loss Qualified Code(s): D50.0 - Iron deficiency anemia secondary to blood loss (chronic) (4) Diarrhea Priority: Secondary Status: Acute Qualifiers: Diarrhea type: unspecified type Qualified Code(s): R19.7 - Diarrhea, unspecified (5) Right shoulder pain Priority: Secondary Status: Acute Qualifiers: Chronicity: acute Qualified Code(s): M25.511 - Pain in right shoulder (6) JULEE (acute kidney injury) Priority: Secondary Status: Resolved (7) Polycythemia vera Priority: Secondary Status: Chronic Hospital course: Ms. Stoddard is a 72 year old female history of polycythemia vera on hydroxyurea and multiple thromboembolisms on eliquis presented to the ED with complaint of generalized weakness. As per patient the night before admission she was getting out of bed by felt weak and hit her right arm to the nightstand. Onset was one week ago. She was recently treated for a UTI with antibiotics, and finished the course but still had complaints of dysuria. She had no complaints of blood in stool, hematemesis. She follows up at [facility] for polycythemia vera. She was found on admission to have mildly elevated troponin and JULEE, which did resolve with IV fluids. Hemoglobin on admission was 11/17/17 was 9.2 but then was 7.4 next lab level. She was found to have iron deficiency, similar to a recent admission in which she was being given iron. Hematology/Oncology consulted, Eliquis was held as iron deficiency from bleed was not completely ruled out. GI was consulted who did an EGD showing esophagitis, no active bleeds. She was started on Carafate and ppi was continued. She has received two days of venefor to date. No colonoscopy done, GI services are not available over weekends at this facility. Hydroxyurea was held but was then resumed per Heme/Onc recommendations. Patient was on Rocephin for suspected UTI , she was developing fevers despite this treatment. She began developing signs/ symptoms of sepsis, meeting 3 SIRS criteria. She was placed on Vanc/Zosyn. MRSA swab negative and Vancomycin discontinued. Zosyn continued to for coverage of possible UTI or pneumonia. She continues to have fevers on day #2 of Zosyn. Abdomin/Pelvis CT with contrast showed no findings of infection. ID was consulted. A CTA was negative for pneumonia and negative for PE. Respiratory infection panel negative. Did have complaints of diarrhea, C diff negative. Autoimmune workup pending including HENRIQUE, RF, EBV, HIV, CMV. CRP is elevated at 111, ESR 50. Procalcitonin 3 days ago elevated at 1.05, though this is a send out lab that takes 3 days to result so no repeat Procalcitonin will be done. Shoulder x-ray done for pain after fall, negative for acute process including fractures. Follow-up: - Anemia: No PRBC required, but currently receiving Venofer day #2. - Xarelto held as of now due to iron deficiency anemia and bleeding not fully ruled out. EGD done, no colonoscopy done. - Fever unknown cause: infection, autoimmune. Labs pending. Consider ID consult, repeat procal (1.05), CRP (111) - Hydroxyurea resumed per recs of Heme/Onc - PT/OT for weakness. - Time Spent with Patient Total time spent providing and/or coordinating discharge services: - Discharge Medications Home Medications: Amlodipine Besylate 10 mg PO DAILY 10/11/17 [History] Atorvastatin [Lipitor] 40 mg PO HS 10/11/17 [History] Gabapentin [Neurontin] 300 mg PO QPM 10/11/17 [History] Gabapentin [Neurontin] 600 mg PO QAM 10/11/17 [History] Gabapentin [Neurontin] 900 mg PO HS 10/11/17 [History] Hydroxyurea 500 mg PO DAILY 10/11/17 [History] Loratadine [Claritin] 10 mg PO DAILY 10/11/17 [History] Omeprazole [PriLOSEC] 20 mg PO HS 10/11/17 [History] Ranitidine HCl [Acid Clarity Developer] 150 mg PO BID 10/11/17 [History] Tizanidine HCl 4 mg PO HS PRN 10/11/17 [History] Docusate [Colace] 100 mg PO BID PRN capsule 10/14/17 [Rx] HYDROcodone/Acet 7.5/325 mg [[place] 7.5-325 mg] 1 - 2 tab PO Q8H PRN 11/17/17 [ History] Acetaminophen [Tylenol] 650 mg PO Q6HR PRN tablet 11/24/17 [Rx] Aspirin Enteric Coated [Aspirin EC] 81 mg PO DAILY tablet. 11/24/17 [Rx] Ferrous Sulfate 325 mg PO BIDWM tablet 11/24/17 [Rx] LORazepam [Ativan] 0.5 mg PO TID PRN 1 Days #3 tablet 11/24/17 [Rx] OXYCODONE Oral CONC [Oxycodone Oral Conc] 5 mg SL Q6HR PRN 1 Days #15 mg [Rx] Ondansetron [Zofran] 4 mg IVP Q8HR PRN vial 11/24/17 [Rx] Preparation H Ointment 1 appl TP TID PRN tube 11/24/17 [Rx] Sucralfate [Carafate] 1 gm PO QIDAC tablet 11/24/17 [Rx] Allergies/Adverse Reactions: 3 Allergy/AdvReac Type Severity Reaction Status Date / Time No Known Allergies Allergy Verified 10/11/17 15:17 Date of admission: 11/22/17 13:38 Primary care physician: Silver Díaz MD Consults: 11/23/17 08:36 Consult to Infectious Diseases [CONS] Routine Consulting Provider: Infectious Disease Erin Reason for Consult: Sepsis Call Completed: Yes Discharging clinician: Raqeul Romo - Constitutional Vitals: Temp Pulse Resp BP Pulse Ox 99.9 F H 83 14 149/83 96 11/24/17 10:52 11/24/17 10:52 11/24/17 10:52 11/24/17 10:52 11/24/17 10:52 General appearance: Present: cooperative, A&O X 3, no acute distress, answers questions appropriately Exam: Gen: NAD, AAOx3 CVS: RRR Lungs: CTAB Abd: soft, nt/nd Ext: no edema, no cyanosis, Right shoulder slight tenderness with range of motion slightly limited due to pain. - Patient Status Disposition: Transfer Other Condition: Fair Functional capacity at discharge: uses cane/walker (Uses nursing assistance) - Discharge Instructions Follow Up With: Silver Díaz MD [Primary Care Provider] - 12/03/17 1:30 pm - Diet and Activity Activity: as per physical therapy Diet: advance to your usual diet - VTE Documentation of Mechanical Device: Intermittent pneumatic compression device
[2017-11-24 14:07] LABS: HIV-1&2 Antibody & p24 Ag Nonreactive (Nonreactive); Hepatitis B Surface Antigen Nonreactive (Nonreactive)
[2017-11-24 14:29] VITALS: BP 138/80
[2017-11-26 01:31] LABS: Hepatitis A Antibody IgM Nonreactive (Nonreactive); Hepatitis B Core IgM Nonreactive (Nonreactive); Hepatitis C Virus Antibody Nonreactive (Nonreactive)
[2017-11-26 07:53] LABS: Mycoplasma pneumoniae IgG 0.2 U/L (<=0.09)
[2017-11-26 13:36] LABS: ANA IgG by ELISA NONE DETECTED (None Detected)
[2017-11-30 07:44] LABS: Cytomegalovirus DNA (PCR) NOT DETECTED
== END 2017-11-24 18:21 | disposition other institution (70) | DRG 871 ==
LOC: EMEROO 11:00 → 3ANU 11:00
PROVIDERS: ADMIT Internal Medicine; ATTEND Internal Medicine